=== PATIENT | male | born 1950 | race Caucasian/White ===

== ENCOUNTER 2019-09-24 08:04 | Outpatient (CLI) | payer MEDICARE, SELFPAY ==
--- NOTE | 2019-10-01 13:51 | SLEEP_ITS ---
Basic Nocturnal Polysomnogram. DATE OF STUDY: 09/24/2019 ORDERING PROVIDER: Vinny Matos, Nurse practitioner. REASON FOR THIS STUDY: Obstructive sleep apnea syndrome. HISTORY: This patient is a 69-year-old male, 69 inches tall, weighing 220 pounds with a body mass index of 32.5. He has a prior history of obstructive sleep apnea syndrome from 2013 with poor sleep efficiency, short REM latency, and his sleep was disrupted by respiratory events, snoring, and myoclonus. His apnea-hypopnea index was 7.9. His current sleep complaints include not being able to sleep restfully at night. He wakes up twice at night to move around, then cannot fall back asleep. His witnesses him having apneas. He uses medication to relax at night, but this does not seem to help maintain his sleep. He has had difficulties tolerating a full face mask previously. He frequently snores loud enough that others complain about it. He rarely has trouble sleeping with a cold. He denies gasping for breath at night, rarely sweats excessively at night and denies his heart pounding or beating irregularly at night. He occasionally falls asleep during the day, never involuntarily, and never while driving. He does not have loss of muscle tone with strong emotion. He rarely has daytime difficulties due to excessive sleepiness. He does not feel paralyzed on waking or falling asleep. He does not have vivid dreamlike scenes upon awakening or falling asleep. He does not feel afraid to go to sleep and denies having nightmares. He rarely remembers his dreams. He denies racing thoughts. He does not feel sad or depressed. He rarely has anxiety. He rarely has muscular tension. He denies noticing parts of his body jerking, denies kicking at night and denies having crawly achy feelings in his legs. He rarely has leg pain at night. He denies morning jaw pain and does not grind his teeth. He is not bothered by pain during the day. He has not awaken with pain at night. He rarely wakes up feeling stiff in the morning or having sore achy muscles. He does not wake up with spine and neck pain. He has memory problems. Normal bedtime is 09:30 p.m., falling asleep quickly, waking 2 or more times at night to go to the bathroom. Sometimes, he is able to fall asleep quickly. He wakes up in the morning between 07:00 and 9:00 a.m. On the weekends, he will stay up until 10:00 p.m. and wakes up at 8:00 in the morning. He estimates somewhere between 5 and 6 hours of sleep at night. He does not take naps. A short nap is not refreshing. MEDICAL COMORBIDITIES: Coronary artery disease with a history of bypass surgery, abdominal aortic aneurysm, gallbladder obstruction, hyperlipidemia, anxiety and depression, cognitive impairment on dementia medication. MEDICATIONS: Divalproex 250 mg q.8 hours, Memantine 10 mg twice a day, Melatonin 15 mg at bedtime, Buspirone 3 times a day, Aspirin 81 mg a day, Sertraline 50 mg in the morning, Donepezil 10 mg at bedtime, Multi Vision vitamins 1 daily, Aatorvastatin 20 mg a day, Bupropion XL 300 mg in the morning; HABITS: Quit tobacco in 2011. He does drink coffee 1 or 2 cups per day. No alcohol. No recreational drugs. DESCRIPTION OF THE STUDY: On the [place] Sleepiness Scale, the score is 5. This was conducted as a full night basic nocturnal polysomnogram, ordered as a split night, but he did not meet criteria for this. This was performed using the [employer] multiple channel system including EOG, EEG, submental EMG, EKG, nasal and oral airflow using thermistors, nasal pressure sensors, chest and abdominal belts, body position data and video monitoring. The study was scored using CMS guidelines. Duration of the study was 437.3 minutes. Sleep time was 253.2 minutes. Sleep efficiency was low
== END 2019-09-24 08:05 | disposition home or self-care (01) ==
LOC: ANHCSM 08:04
PROVIDERS: Visit Provider Nurse Practitioner
DX: G47.33 Obstructive sleep apnea (adult) (pediatric) (principal); G47.61 Periodic limb movement disorder
CPT/HCPCS: 95810

== ENCOUNTER 2019-10-15 06:47 | Outpatient (CLI) | payer MEDICARE, SELFPAY ==
--- NOTE | 2019-11-07 15:58 | SLEEP_ITS ---
Split night sleep study. DATE OF STUDY: 10/15/2019 ORDERING PROVIDER: Vinny Matos, Nurse practitioner. REASON FOR THE STUDY: Obstructive sleep apnea syndrome. HISTORY: This patient is a 69-year-old male, 69 inches tall, weighing 220 pounds with a body mass index of 32.5. He had a home sleep test on 07/24/2020 for complaints of disrupted sleep. He has a prior history of obstructive sleep apnea syndrome from 2013 with poor sleep efficiency, a short REM latency, snoring, and myoclonus. His AHI at that time was 7.9. On the recent home sleep test, he had a low sleep efficiency with delayed sleep onset and abnormal sleep architecture. He had positional obstructive sleep apnea syndrome with a supine REM index of 38.2 with desaturation to 79% and a mean O2 saturation of 91%. His overall apnea-hypopnea index was lower at 3.8. He also had severe periodic limb movement disorder. He returns at this time for a split night study to further evaluate his sleep-disordered breathing complaints. MEDICAL COMORBIDITIES: Coronary artery disease with a history of bypass surgery, abdominal aortic aneurysm, hyperlipidemia, anxiety, depression, cognitive impairment, obstructive sleep apnea syndrome, and severe periodic limb movement disorder. MEDICATIONS: 1. Divalproex. 2. Memantine. 3. Melatonin. 4. Buspirone. 5. Aspirin. 6. Sertraline. 7. Donepezil. 8. Multivitamin. 9. Atorvastatin. 10. Bupropion. HABITS: Quit tobacco in 2011. 1 to 2 cups of coffee per day. No alcohol. DESCRIPTION OF THE STUDY: On the [place] Sleepiness Scale, his score was 5. This was conducted as a split night study using the [employer] multiple channel system including EOG, EEG, submental EMG, EKG, nasal and oral airflow using thermistors and nasal pressure sensors, chest and abdominal belts, body position data, and pulse oximetry. The study was scored using CMS guidelines. The duration of the diagnostic portion was 168.3 minutes. The sleep time was 140 minutes. The sleep efficiency was 83.2%. Sleep latency was 19.6 minutes. REM latency was short at 71.5 minutes. There were 6 awakenings. The patient spent 8.7 minutes awake after sleep onset. Sleep architecture showed 5.7% stage 1 sleep, 72.5% stage 2 sleep, no stage 3 sleep, and 21.8% stage REM. The entire study was spent supine during the baseline portion. He had a REM episode. Sleep was a bit fragmented with shifts between wake stage I and stage II. The apnea-hypopnea index was 14.1, all obstructive events. He had 24 obstructive hypopneas in supine REM, 10 obstructive hypopneas in supine non-REM. The supine index was 47.2. Non-supine index was 5.5. Lowest desaturation was 76%. The mean saturation was 89.6%. He had 33 desaturations of 4% or greater for an index of 11.8. He spent 30.4 minutes below 88%, which was 16.6% of this portion. AROUSALS: 37 arousals for an index of 13.2. He had 9 hypopneas for an index of 3.2, 9 spontaneous for an index of 3.2, 19 limb movements for an index of 6.8. LIMB MOVEMENTS: 978 limb movements for an index of 419.1, extremely high. None of these were periodic. EKG: Sinus bradycardia, mean heart rate 44. The patient met criteria and proceeded to titration. TREATMENT: During the treatment portion, recording time was 300.8 minutes. Sleep time 248.9 minutes. Sleep efficiency 82.7%. Sleep latency short, 1.9 minutes. REM latency 68.5 minutes. There were 21 awakenings. The patient spent 50 minutes awake after sleep onset. Sleep architecture showed 9.6% stage 1 sleep, 68.5% stage 2 sleep, no stage 3 sleep, 21.9% stage REM. The patient spent 75.2% of this portion supine. There were 2 REM episodes. Sleep was somewhat fragmented with shifts even during REM between wake sta
== END 2019-10-15 06:48 | disposition home or self-care (01) ==
LOC: ANHCSM 06:48
PROVIDERS: Visit Provider Nurse Practitioner
DX: G47.33 Obstructive sleep apnea (adult) (pediatric) (principal)
CPT/HCPCS: 95811

== ENCOUNTER 2020-06-19 07:40 | Outpatient (CLI) | payer MEDICARE, SELFPAY ==
[2020-06-19 22:26] LABS: SARS-CoV-2 RNA PCR Negative
== END 2020-06-19 07:41 | disposition home or self-care (01) ==
LOC: ANHCOVIDDT 07:42
PROVIDERS: Visit Provider Internal Medicine Gastroenterology
DX: Z01.812 Encounter for preprocedural laboratory examination (principal); Z20.828 Contact with and (suspected) exposure to other viral communicable diseases
CPT/HCPCS: 87635; C9803; U0003

== ENCOUNTER 2020-06-22 02:25 | Day surgery (SDC) | payer MEDICARE, SELFPAY ==
[2020-06-16 13:40] VITALS: BMI 33.1
--- NOTE | 2020-06-22 07:01 | WPDANESEPPF ---
Anes - Initial Pre Proc Eval Procedure: Operation Date: 06/22/20 10:30 Proposed Procedures p Screening Colonoscopy - Sheldon Negrete MD Date/Time: 06/22/20 07:01 Surgeon: Sheldon Negrete MD Pre Op Diagnosis: Neoplasm Screening Patient Data Age: 70 Gender: M Height: 1.68 m Weight: 93.1 kg Allergies Allergy/AdvReac Type Severity Reaction Status Date / Time No Known Allergies Allergy Unverified 06/22/20 09:24 Home Medications Medication Instructions Recorded Confirmed Type aspirin 81 mg tablet,delayed 81 mg PO DAILY 08/27/19 06/16/20 History release bupropion HCl 300 mg 24 hr tablet, 300 mg PO QAM 08/27/19 06/16/20 History extended release buspirone 30 mg tablet 15 mg PO TID tablet 09/02/19 06/16/20 History donepezil 10 mg tablet 10 mg PO DAILY tablet 09/02/19 06/16/20 History melatonin 10 mg tablet PO DAILY tablet 09/02/19 09/02/19 History memantine 10 mg tablet 10 mg PO BID 09/02/19 06/16/20 History sertraline 50 mg tablet 50 mg PO DAILY 09/02/19 06/16/20 History peg 3350-electrolytes 236 240 ml PO Q10M #4000 ml 05/17/20 Rx gram-22.74 gram-6.74 gram-5.86 gram solution atorvastatin [Lipitor] See Rx Instructions .ROUTE .COMPLEX 06/16/20 06/16/20 History divalproex [Depakote] 250 mg PO Q8H 06/16/20 06/16/20 History vitamin A-vitamin C-vit E-min 1 tablet PO DAILY 06/16/20 06/16/20 History [Ocuvite] Patient hx anesthesia problems: none Family hx anesthesia problems: none PMFSH Past Medical History Medical History (Updated 06/22/20 @ 07:03 by Facundo Trujillo MD) Abdominal aortic aneurysm Alzheimer disease Anxiety and depression COPD (chronic obstructive pulmonary disease) Coronary artery disease (CAD) excluded Gallbladder obstruction Lesion of pancreas Mixed hyperlipidemia Obesity EMELI (obstructive sleep apnea) Surgical History Surgical History (Updated 06/22/20 @ 07:03 by Facundo Trujillo MD) S/P AAA (abdominal aortic aneurysm) repair S/P CABG (coronary artery bypass graft) Social History Social History (System 12/25/19 @ 09:04 by Germaine Webber) Smoking packs per day: 1 Smoking cigarettes per day: 20.0 Years smoked: 50 Smoking pack-years: 50.00 Smoking status: Former smoker Tobacco type: cigarettes Alcohol intake: current Substance use type: does not use Living arrangements: with family Gender identity (if verbalized by the patient): Male Spiritual care concerns: No Anes - Eval Final PreProcedure Day of Procedure 06/22/20 07:01 Patient weight: obese Heart: regular rate and rhythm Lungs: clear to auscultation and normal air movement Airway: Mallampati scale class II Neurological: alert and oriented Last oral intake: >/= 8 hours ASA classification: IV Emergent: no Anesthetic plan: proceed Anesthesia type and monitoring: general GIVS Informed Consent: The patient's anesthetic plan and its attendant risks and benefits were discussed with the patient/family/POA. Questions were solicited and answers provided to the satisfaction of the patient/family/POA.
[2020-06-22 09:25] VITALS: BP 115/84; PULSE 73; RESP 22; TEMP 36.6; O2SAT 96; BMI 30.9
[2020-06-22] MEDS: LACTATED RINGERS 1,000 ML 150 ML IV CONT (09:35)
--- NOTE | 2020-06-22 10:48 | PM.HPGS ---
History of Present Illness History of Present Illness Consent: Risks, benefits, and alternatives have been discussed and questions answered. Patient agrees to proceed with procedure. Chief complaint: Neoplasm Screening Narrative: David Maritnez Sr. is a 70 year old male with frequent loose stool after eating, also gas. Worse after he had cholecystectomy last year. Never had a colonoscopy Review of Systems Constitutional: Constitutional: Denies headache(s) and Denies weakness Eyes: Eyes: Denies blurry vision ENT: Reports Normal hearing present, Denies headache(s) and Denies neck pain Cardiovascular: Cardiovascular: Denies chest pain and Denies dyspnea Respiratory: Respiratory: Denies dyspnea Gastrointestinal: Gastrointestinal: Reports no additional gastrointestinal complaints Genitourinary: Genitourinary: Denies dysuria Musculoskeletal: Musculoskeletal: Denies neck pain Integumentary/Breasts: Skin/Breast: Denies dry skin Neurologic: Reports Normal hearing present, Denies headache(s) and Denies weakness Psychiatric: Psychiatric: Denies anxiety Endocrine: Endocrine: Denies change in body appearance Hematologic/Lymphatic: Hematologic/Lymphatic: Denies easy bleeding Allergic/Immunologic: Allergic/Immunologic: Denies urticaria PMFSH Past Medical History Medical History (Updated 06/22/20 @ 10:49 by Sheldon Negrete MD) Abdominal aortic aneurysm Alzheimer disease Anxiety and depression COPD (chronic obstructive pulmonary disease) Coronary artery disease (CAD) excluded Gallbladder obstruction Lesion of pancreas Mixed hyperlipidemia Obesity EMELI (obstructive sleep apnea) Postprandial diarrhea Surgical History Surgical History (Updated 06/22/20 @ 10:49 by Sheldon Negrete MD) Hx of cholecystectomy S/P AAA (abdominal aortic aneurysm) repair S/P CABG (coronary artery bypass graft) Social History Social History (System 12/25/19 @ 09:04 by Germaine Webber) Smoking packs per day: 1 Smoking cigarettes per day: 20.0 Years smoked: 50 Smoking pack-years: 50.00 Smoking status: Former smoker Tobacco type: cigarettes Alcohol intake: current Substance use type: does not use Living arrangements: with family Gender identity (if verbalized by the patient): Male Spiritual care concerns: No Meds Home Medications and Allergies Home Medications Medication Instructions Recorded Confirmed Type aspirin 81 mg tablet,delayed 81 mg PO DAILY 08/27/19 06/16/20 History release bupropion HCl 300 mg 24 hr tablet, 300 mg PO QAM 08/27/19 06/16/20 History extended release buspirone 30 mg tablet 15 mg PO TID tablet 09/02/19 06/16/20 History donepezil 10 mg tablet 10 mg PO DAILY tablet 09/02/19 06/16/20 History melatonin 10 mg tablet PO DAILY tablet 09/02/19 09/02/19 History memantine 10 mg tablet 10 mg PO BID 09/02/19 06/16/20 History sertraline 50 mg tablet 50 mg PO DAILY 09/02/19 06/16/20 History peg 3350-electrolytes 236 240 ml PO Q10M #4000 ml 05/17/20 Rx gram-22.74 gram-6.74 gram-5.86 gram solution atorvastatin [Lipitor] See Rx Instructions .ROUTE .COMPLEX 06/16/20 06/16/20 History divalproex [Depakote] 250 mg PO Q8H 06/16/20 06/16/20 History vitamin A-vitamin C-vit E-min 1 tablet PO DAILY 06/16/20 06/16/20 History [Ocuvite] Allergies Allergy/AdvReac Type Severity Reaction Status Date / Time No Known Allergies Allergy Unverified 06/22/20 09:24 Vital Signs Vital Signs - 24 hr 06/22/20 09:25 Temperature 97.8 F Pulse Rate 73 Respiratory Rate 22 H Blood Pressure 115/84 Pulse Oximetry 96 Exam Const: General: comfortable and no acute distress HENMT: General nose exam: Normal nares present Eyes: General: appearance normal, both eyes and all related structures Neck: Neck: no JVD Resp: Auscultation: clear to auscultation bilaterally Cardio: Rate: regular rate Rhythm: regular rhythm GI: Inspection: non-distended GI Palp: Ye
[2020-06-22 11:09] VITALS: BP 101/63; PULSE 56; RESP 28; O2SAT 96
[2020-06-22 11:19] VITALS: BP 102/62; PULSE 60; RESP 26; O2SAT 96
[2020-06-22 11:29] VITALS: BP 118/69; PULSE 48; RESP 26; O2SAT 96
== END 2020-06-22 11:58 | disposition home or self-care (01) ==
PROVIDERS: PCP Internal Medicine; Visit Provider Internal Medicine Gastroenterology
PROC: 0DJD8ZZ Inspection of Lower Intestinal Tract, Via Natural or Artificial Opening Endoscopic (ICD-10-PCS; CPT 45378; principal; 2020-06-22 10:30)
DX: Z12.11 Encounter for screening for malignant neoplasm of colon (principal); K63.5 Polyp of colon; R19.7 Diarrhea, unspecified; K64.8 Other hemorrhoids; I71.4 Abdominal aortic aneurysm, without rupture; J44.9 Chronic obstructive pulmonary disease, unspecified; E78.5 Hyperlipidemia, unspecified; E66.9 Obesity, unspecified; G47.33 Obstructive sleep apnea (adult) (pediatric); G30.9 Alzheimer's disease, unspecified; F02.80 Dementia in other diseases classified elsewhere, unspecified severity, without behavioral disturbance, psychotic disturbance, mood disturbance, and anxiety; F41.9 Anxiety disorder, unspecified; F32.9 Major depressive disorder, single episode, unspecified; Z90.49 Acquired absence of other specified parts of digestive tract; Z87.891 Personal history of nicotine dependence
CPT/HCPCS: 45385; 88305; J2704; J7120

== ENCOUNTER 2020-08-31 10:17 | Outpatient (CLI) | payer MEDICARE, SELFPAY ==
[2020-08-31 11:43] LABS: Alanine Aminotransferase 21 U/L (16-63); Albumin Level 3.5 g/dL (3.4-5.0); Alkaline Phosphatase 53 U/L (46-116); Anion Gap 3 mmol/L (8-16); Aspartate Amino Transferase 19 U/L (15-37); Bilirubin,Total 0.6 mg/dL (0.00-1.00); Blood Urea Nitrogen 24 mg/dL (7-18); Calcium 8.6 mg/dL (8.5-10.1); Carbon Dioxide 35 mmol/L (21-32); Chloride 108 mmol/L (98-108); Cholesterol 154 mg/dL (0-200); Estimated Glomerular Filt Rate > 60; Glucose 86 mg/dL (70-99); HDL Direct 63 mg/dL (40-60); LDL Cholesterol Calculated 79 mg/dL (<130); Osmolality Calculated 305 mOsm/kg (285-295); Potassium 4.4 mmol/L (3.5-5.1); Sodium 146 mmol/L (136-145); Triglycerides 61 mg/dL (0-150)
== END 2020-08-31 10:18 | disposition home or self-care (01) ==
LOC: CHSLAB 10:19
PROVIDERS: PCP Nurse Practitioner; Visit Provider Nurse Practitioner
DX: E78.5 Hyperlipidemia, unspecified (principal)
CPT/HCPCS: 36415; 80053; 80061

== ENCOUNTER 2020-09-01 09:53 | Outpatient (CLI) | payer MEDICARE, SELFPAY ==
--- NOTE | ~2020-09-01 | CT_ITS ---
EXAMINATION: CT abdomen wo/w con DATE: 09/01/2020 10:48 INDICATION: Lesion of pancreas. TECHNIQUE: Computed tomography (CT) of the abdomen was performed without and with 100 mL Omnipaque 35 0 intravenous contrast. Automated exposure control and iterative reconstruction technique were employ ed. The dose-length product was 1633.26 mGy-cm. COMPARISON: Abdomen MRI 03/01/2019, 10/28/2018, CT abdomen and pelvis 10/27/2018 FINDINGS: The visualized portions of the lung bases demonstrate mild atelectasis. No pleural effusion . The heart size is normal. There are coronary artery calcifications. No pericardial effusion. There is a small sliding hiatal hernia. Calcifications in the liver and spleen are consistent with old gran ulomatous disease. There is a 7 mm hyperenhancing mass in left hepatic lobe, likely a hemangioma or f ocal nodular hyperplasia. Pneumobilia is noted, likely from sphincterotomy. There are changes of chol ecystectomy. The pancreatic duct is dilated to 7 mm in the body segment. There is a 2.9 x 0.9 cm cyst ic lesion of the body of the pancreas that is contiguous with the pancreatic duct. No mural nodule. T he adrenal glands are normal. There are cysts in the kidneys measuring up to 6 mm on the right. There is a 5 mm stone in right kidney. There are no dilated loops of bowel. There are multiple supraumbili maximo ventral hernias containing fat. There is mild thoracolumbar spondylosis. IMPRESSION: 1. 2.9 cm cystic lesion of the body of the pancreas with main duct communication and main duct dilata tion to 7 mm, stable from 03/01/2019. 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 Abdomen MRI without and with contrast is recommended in one year. Reviewed, dictated and finalized at location B. [facility] IMPRESSION: 1. 2.9 cm cystic lesion of the body of the pancreas with main duct communicatio n and main duct dilatation to 7 mm, stable from 03/01/2019. 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 Abdomen MRI without and with contrast is recommended in one year.
== END 2020-09-01 09:54 | disposition home or self-care (01) ==
PROVIDERS: PCP Internal Medicine; Visit Provider Nurse Practitioner Family
DX: K86.9 Disease of pancreas, unspecified (principal)
CPT/HCPCS: 74170; Q9967

== ENCOUNTER 2020-11-18 10:28 | Outpatient (CLI) | payer MEDICARE, SELFPAY ==
[2020-11-18 10:43] LABS: Basophils Absolute Auto 0.03 K/mm3 (0.00-0.10); Basophils Percent Auto 0.5 % (0.0-1.0); Eosinophils Absolute Auto 0.07 K/mm3 (0.02-0.50); Eosinophils Percent Auto 1.1 % (1.0-6.0); Hematocrit 44.8 % (37.0-46.0); Hemoglobin 14.6 g/dL (12.4-15.3); Immature Granulocyte Absolute 0.03 K/mm3 (0.00-0.00); Immature Granulocyte Percent A 0.5 % (0.0-0.0); Lymphocytes Absolute Auto 1.77 K/mm3 (1.10-4.50); Lymphocytes Percent Auto 27.4 % (18.0-42.0); Mean Corpuscular HGB Conc 32.6 g/dL (32.0-36.0); Mean Corpuscular Volume 104.4 fL (78.0-102.0); Mean Platelet Volume 10.7 fl (8.7-11.0); Monocytes Percent Auto 10.8 % (2.0-11.0); Neutrophils Absolute Auto 3.9 K/mm3 (1.7-7.2); Neutrophils Percent Auto 59.7 % (50.0-70.0); Platelet Count Result 123 K/mm3 (150-420); Red Blood Count 4.29 M/mm3 (4.70-6.10); Red Cell Distribution Width 12.3 % (11.6-14.4); White Blood Count 6.5 K/mm3 (4.8-10.8)
[2020-11-18 11:26] LABS: Hemoglobin A1C 5.2 % (<5.7)
[2020-11-18 11:51] LABS: Alanine Aminotransferase 27 U/L (16-63); Albumin Level 3.2 g/dL (3.4-5.0); Alkaline Phosphatase 56 U/L (46-116); Anion Gap 4 mmol/L (8-16); Aspartate Amino Transferase 20 U/L (15-37); Bilirubin,Total 0.7 mg/dL (0.00-1.00); Blood Urea Nitrogen 27 mg/dL (7-18); Calcium 8.8 mg/dL (8.5-10.1); Carbon Dioxide 32 mmol/L (21-32); Chloride 108 mmol/L (98-108); Cholesterol 136 mg/dL (0-200); Estimated Glomerular Filt Rate > 60; Folic Acid 15.7 ng/mL (8.6->20); Free T4 Free Thyroxine 0.87 ng/dL (0.76-1.46); Glucose 116 mg/dL (70-99); HDL Direct 55 mg/dL (40-60); LDL Cholesterol Calculated 65 mg/dL (<130); Osmolality Calculated 304 mOsm/kg (285-295); Potassium 4.4 mmol/L (3.5-5.1); Sodium 144 mmol/L (136-145); Thyroid Stimulating Hormone 1.18 uIU/mL (0.36-3.74); Total Protein 5.7 g/dL (6.4-8.2); Triglycerides 79 mg/dL (0-150)
[2020-11-20 20:42] LABS: Valproic Acid 32.9 mg/L (50.0-100.0)
[2020-11-21 11:30] LABS: Vitamin D 25 Hydroxy 24 ng/mL (30-100)
== END 2020-11-18 10:29 | disposition home or self-care (01) ==
LOC: CHSLAB 10:33
PROVIDERS: PCP Internal Medicine
DX: Z79.899 Other long term (current) drug therapy (principal); F33.0 Major depressive disorder, recurrent, mild; G30.9 Alzheimer's disease, unspecified; F41.1 Generalized anxiety disorder; E78.5 Hyperlipidemia, unspecified
CPT/HCPCS: 36415; 80053; 80061; 80164; 82306; 82746; 83036; 84439; 84443; 85025

== ENCOUNTER 2021-02-17 09:47 | Outpatient (CLI) | payer MEDICARE, SELFPAY ==
[2021-02-17 10:00] LABS: Basophils Absolute Auto 0.03 K/mm3 (0.00-0.10); Basophils Percent Auto 0.5 % (0.0-1.0); Eosinophils Absolute Auto 0.08 K/mm3 (0.02-0.50); Eosinophils Percent Auto 1.3 % (1.0-6.0); Immature Granulocyte Absolute 0.03 K/mm3 (0.00-0.00); Immature Granulocyte Percent A 0.5 % (0.0-0.0); Lymphocytes Absolute Auto 1.72 K/mm3 (1.10-4.50); Lymphocytes Percent Auto 27.7 % (18.0-42.0); Mean Corpuscular HGB Conc 32.6 g/dL (32.0-36.0); Mean Corpuscular Hemoglobin 33.9 pg (27.0-31.0); Mean Corpuscular Volume 104.1 fL (78.0-102.0); Mean Platelet Volume 10.5 fl (8.7-11.0); Monocytes Percent Auto 9.7 % (2.0-11.0); Neutrophils Absolute Auto 3.8 K/mm3 (1.7-7.2); Neutrophils Percent Auto 60.3 % (50.0-70.0); Platelet Count Result 159 K/mm3 (150-420); Red Blood Count 4.42 M/mm3 (4.70-6.10); Red Cell Distribution Width 12.5 % (11.6-14.4); White Blood Count 6.2 K/mm3 (4.8-10.8)
[2021-02-17 10:08] LABS: Hemoglobin A1C 5.3 % (<5.7)
[2021-02-17 11:44] LABS: Alanine Aminotransferase 25 U/L (16-63); Albumin Level 3.2 g/dL (3.4-5.0); Alkaline Phosphatase 52 U/L (46-116); Anion Gap 8 mmol/L (8-16); Aspartate Amino Transferase 20 U/L (15-37); Bilirubin,Total 0.9 mg/dL (0.00-1.00); Blood Urea Nitrogen 18 mg/dL (7-18); Calcium 8.4 mg/dL (8.5-10.1); Carbon Dioxide 34 mmol/L (21-32); Chloride 110 mmol/L (98-108); Cholesterol 122 mg/dL (0-200); Estimated Glomerular Filt Rate > 60; Glucose 86 mg/dL (70-99); HDL Direct 57 mg/dL (40-60); LDL Cholesterol Calculated 54 mg/dL (<130); Osmolality Calculated 314 mOsm/kg (285-295); Potassium 4.4 mmol/L (3.5-5.1); Sodium 152 mmol/L (136-145); Total Protein 5.6 g/dL (6.4-8.2); Triglycerides 56 mg/dL (0-150)
[2021-02-22 05:12] LABS: Valproic Acid 46.6 mg/L (50.0-100.0)
[2021-02-22 20:02] LABS: Vitamin D 25 Hydroxy 29 ng/mL (30-100)
== END 2021-02-17 09:48 | disposition home or self-care (01) ==
PROVIDERS: PCP Internal Medicine; Visit Provider Nurse Practitioner Psychiatric/Mental Health
DX: Z79.899 Other long term (current) drug therapy (principal); F33.0 Major depressive disorder, recurrent, mild; F41.1 Generalized anxiety disorder; G30.9 Alzheimer's disease, unspecified; E78.5 Hyperlipidemia, unspecified; F51.01 Primary insomnia
CPT/HCPCS: 36415; 80053; 80061; 80164; 82306; 82746; 83036; 84439; 84443; 85025

== ENCOUNTER 2021-05-11 08:22 | Outpatient (CLI) | payer MEDICARE, SELFPAY ==
[2021-05-11 09:23] LABS: Alanine Aminotransferase 29 U/L (16-63); Albumin Level 3.5 g/dL (3.4-5.0); Alkaline Phosphatase 60 U/L (46-116); Anion Gap 4 mmol/L (8-16); Aspartate Amino Transferase 27 U/L (15-37); Blood Urea Nitrogen 19 mg/dL (7-18); Calcium 8.9 mg/dL (8.5-10.1); Carbon Dioxide 34 mmol/L (21-32); Chloride 109 mmol/L (98-108); Cholesterol 136 mg/dL (0-200); Estimated Glomerular Filt Rate > 60; Glucose 95 mg/dL (70-99); HDL Direct 63 mg/dL (40-60); LDL Cholesterol Calculated 62 mg/dL (<130); Osmolality Calculated 306 mOsm/kg (285-295); Potassium 5.2 mmol/L (3.5-5.1); Sodium 147 mmol/L (136-145); Thyroid Stimulating Hormone 1.91 uIU/mL (0.36-3.74); Total Protein 6.1 g/dL (6.4-8.2); Triglycerides 54 mg/dL (0-150)
[2021-05-15 16:41] LABS: Valproic Acid 20.9 mg/L (50.0-100.0)
== END 2021-05-11 08:23 | disposition home or self-care (01) ==
LOC: CHSLAB 08:26
PROVIDERS: PCP Internal Medicine; Visit Provider Internal Medicine
DX: E78.2 Mixed hyperlipidemia (principal); F41.9 Anxiety disorder, unspecified; F32.9 Major depressive disorder, single episode, unspecified; Z51.81 Encounter for therapeutic drug level monitoring
CPT/HCPCS: 36415; 80053; 80061; 80164; 84443

== ENCOUNTER 2021-11-21 09:18 | Outpatient (CLI) | payer MEDICARE, SELFPAY ==
[2021-11-21 10:53] LABS: Alanine Aminotransferase 18 U/L (16-63); Albumin Level 3.3 g/dL (3.4-5.0); Alkaline Phosphatase 58 U/L (46-116); Anion Gap 6 mmol/L (8-16); Aspartate Amino Transferase 20 U/L (15-37); Bilirubin,Total 0.8 mg/dL (0.00-1.00); Blood Urea Nitrogen 24 mg/dL (7-18); Carbon Dioxide 34 mmol/L (21-32); Chloride 107 mmol/L (98-108); Cholesterol 139 mg/dL (0-200); Estimated Glomerular Filt Rate > 60; Glucose 93 mg/dL (70-99); HDL Direct 62 mg/dL (40-60); LDL Cholesterol Calculated 65 mg/dL (<130); Osmolality Calculated 308 mOsm/kg (285-295); Potassium 5.1 mmol/L (3.5-5.1); Sodium 147 mmol/L (136-145); Total Protein 5.9 g/dL (6.4-8.2); Triglycerides 60 mg/dL (0-150); Vitamin B12 619 pg/mL (193-986)
[2021-11-24 08:14] LABS: Valproic Acid 64.3 mg/L (50.0-100.0)
[2021-11-24 15:35] LABS: Vitamin D 25 Hydroxy 20 ng/mL (30-100)
== END 2021-11-21 09:19 | disposition home or self-care (01) ==
LOC: CHSLAB 09:22
PROVIDERS: PCP Internal Medicine; Visit Provider Internal Medicine
DX: Z79.899 Other long term (current) drug therapy (principal); Z03.89 Encounter for observation for other suspected diseases and conditions ruled out; E78.5 Hyperlipidemia, unspecified; D75.89 Other specified diseases of blood and blood-forming organs; E55.9 Vitamin D deficiency, unspecified
CPT/HCPCS: 36415; 80053; 80061; 80164; 82306; 82607

== ENCOUNTER 2022-01-12 12:47 | Outpatient (CLI) | payer MEDICARE, SELFPAY ==
--- NOTE | 2022-01-14 14:07 | WPDNEUROLOGY ---
Neurology EEG Report General Information Date of Study: 01/12/22 TEST eeg DIAGNOSIS Alzheimer's disease CONDITION OF RECORDING awake and drowsy EEG NUMBER [id number] CLINICAL HISTORY patient reports he has been having trouble remembering things in particularly names EEG DESCRIPTION basic resting occipital frequency consists of low to medium voltage 8 to 9 hertz per 2nd alpha admixed with low-voltage 15 to 18 hertz per 2nd beta. During drowsiness low-voltage beta activity seen diffusely admixed with waxing and waning posterior alpha rhythm. Bilateral symmetrical sleep activity seen during sleep in addition to multiple movements artifacts. Photic stimulation produced normal drive. Hyperventilation not done. Non paroxysmal nonfocal nonlateralizing. IMPRESSION Normal record
== END 2022-01-12 12:48 | disposition home or self-care (01) ==
LOC: ANHNEURO 12:47
PROVIDERS: PCP Internal Medicine; Visit Provider Psychiatry & Neurology Neurology
DX: G30.9 Alzheimer's disease, unspecified (principal)
CPT/HCPCS: 95816

== ENCOUNTER 2022-01-18 10:31 | Outpatient (CLI) | payer MEDICARE, SELFPAY ==
--- NOTE | ~2022-01-18 | MR_ITS ---
EXAMINATION: MR brain/brain stem wo/w con DATE: 01/18/2022 11:49 INDICATION: Epilepsy, unspecified, not intractable, without status epilepticus. TECHNIQUE: Magnetic resonance imaging (MRI) of the brain and brainstem was performed without and with 18 mL MultiHance intravenous contrast. COMPARISON: Head CT 04/24/2019 FINDINGS: There are scattered areas of nonspecific increased T2-weighted signal intensity in the cere bral white matter. There is no intracranial hemorrhage, acute infarction, or abnormal intracranial ma ss lesion. The ventricles are normal in size. There is mild mucosal thickening in the paranasal sinus es. There are likely changes of ocular lens replacement surgeries. The mastoid air cells are normal. IMPRESSION: 1. Mild nonspecific cerebral white matter disease, which likely represents chronic small vessel ische alison disease. Reviewed, dictated and finalized at location A. IMPRESSION: 1. Mild nonspecific cerebral white matter disease, which likely represents residential concierge alban small vessel ischemic disease.
[2022-01-18 11:22] LABS: Estimated Glomerular Filt Rate 59
== END 2022-01-18 10:32 | disposition home or self-care (01) ==
PROVIDERS: PCP Internal Medicine; Visit Provider Psychiatry & Neurology Neurology
DX: G40.909 Epilepsy, unspecified, not intractable, without status epilepticus (principal); R90.82 White matter disease, unspecified
CPT/HCPCS: 70553; A9577

== ENCOUNTER 2022-02-17 11:59 | Outpatient (CLI) | payer MEDICARE, SELFPAY ==
[2022-02-17 12:38] LABS: Anion Gap 5 mmol/L (8-16); Blood Urea Nitrogen 27 mg/dL (7-18); Calcium 8.9 mg/dL (8.5-10.1); Carbon Dioxide 33 mmol/L (21-32); Chloride 106 mmol/L (98-108); Estimated Glomerular Filt Rate 57; Glucose 91 mg/dL (70-99); NT Pro B Type Natriuretic Pept 3151 pg/mL (0-125); Osmolality Calculated 303 mOsm/kg (285-295); Potassium 4.5 mmol/L (3.5-5.1); Sodium 144 mmol/L (136-145)
== END 2022-02-17 12:00 | disposition home or self-care (01) ==
DX: I25.10 Atherosclerotic heart disease of native coronary artery without angina pectoris (principal); R06.00 Dyspnea, unspecified; E78.2 Mixed hyperlipidemia
CPT/HCPCS: 36415; 80048; 83880

== ENCOUNTER 2022-05-02 14:36 | Emergency (ER) | payer MEDICARE, SELFPAY ==
[2022-05-02] VITALS (16 sets, daily range): BP systolic 129–138; BP diastolic 60–98; PULSE 52–73; RESP 13–32; TEMP 37.5; O2SAT 96–100
--- NOTE | ~2022-05-02 | XR_ITS ---
EXAMINATION: XR chest 2V Exam Date/Time: 05/02/2022 15:20 CDT HISTORY: AMS, states back pain, abd pain and leg pain Comparison: 09/11/2012. RESULT: Lines, tubes, and devices: Intact sternotomy wires. Mediastinal surgical clips. Lungs and pleura: Linear bibasilar scar, calcified granulomas, emphysematous change. Cardiomediastinal silhouette: Stable. Other: No acute osseous or upper abdominal finding. IMPRESSION: No acute cardiopulmonary process. Reviewed, dictated and finalized at location K.
--- NOTE | ~2022-05-02 | CT_ITS ---
EXAMINATION: CT abdomen pelvis wo con DATE: 05/02/2022 17:56 INDICATION: Flank pain TECHNIQUE: Computed tomography (CT) of the abdomen and pelvis was performed without intravenous contr ast. Automated exposure control and iterative reconstruction technique were employed. Exam dose: 604 .85 mGy-cm total exam DLP. COMPARISON: 09/01/2020 CT abdomen FINDINGS: There is mild discoid atelectasis or scarring at the lung bases. No basilar pulmonary conso lidation is noted. No pericardial or pleural effusion. Foramen of Morgagni defect containing fat, transverse colon and a portion of the left hepatic lobe. Small sliding hiatal hernia. There are numerous calcified hepatic and splenic granulomas consistent with old granulomatous disease . No hepatic space-occupying mass lesion is evident. Status post cholecystectomy, which likely accounts for better air in the nondilated common bile duct and intrahepatic bile ducts. Normal splenic size. 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 Normal morphology of the adrenal glands. Approximately 4 x 8 mm nonobstructing lower pole right renal calculus. A pinpoint nonobstructing left renal calculus is noted.. No ureteral calculus or hydroureteronephrosis. There is atherosclerotic calcification of the abdominal aorta, iliac and femoral arteries. No abdomin al aortic aneurysm. No intraperitoneal or retroperitoneal or pelvic mass lesion or adenopathy or asci fantasma. Bilateral fat-containing inguinal hernias, small, larger on the right. Prostate enlargement and calcifications. The prostate enlargement likely accounts for mild diffuse th ickeningof the urinary bladder wall. Cystitis is not excluded. Normal appendix. No bowel obstruction, bowel wall thickening, pneumatosis or intraperitoneal free air . Osteopenia. Degenerative changes of the thoracic and lumbar spine. Bilateral hip osteoarthritis. No s uspicious osteolytic or osteoblastic lesions are noted. IMPRESSION: Minimal bilateral nonobstructive nephrolithiasis; no ureteral calculus or hydroureterone phrosis Moderate thickening of the urinary bladder wall, possibly secondary to prostate hypertrophy; cystitis is not excluded Small fat-containing inguinal hernias, larger on the right Normal appendix Status post cholecystectomy which likely accounts for pneumobilia Relatively stable cystic mass of pancreas since 09/01/2020 Reviewed, dictated and finalized at [facility]. Reviewed, dictated and finalized at location B. IMPRESSION: Minimal bilateral nonobstructive nephrolithiasis; no ureteral calc ulus or hydroureteronephrosis Moderate thickening of the urinary bladder wall, possibly secondary to prostate hypertrophy; cystitis is not excluded Small fat-containing inguinal hernias, larger on the right Normal appendix Status post cholecystectomy which likely accounts for pneumobilia Relatively stable cystic mass of pancreas since 09/01/2020
--- NOTE | 2022-05-02 14:42 | ECG_ITS ---
Measurements Intervals [place] Rate: 58 P: 73 SC: 145 QRS: 65 QRSD: 99 T: 60 QT: 434 QTc: 428 Interpretive Statements SINUS BRADYCARDIA NONSPECIFIC ST & T-WAVE ABNORMALITY- DIFFUSE LEADS BASELINE ARTIFACT- I, II, III, AVR, AVL, AVF, V3-V4 BORDERLINE ECG NO PREVIOUS ECG AVAILABLE FOR COMPARISON Electronically Signed On 05-02-2022 15:10:29 CDT by Moreno Fields D.O.
--- NOTE | 2022-05-02 15:43 | ED.GENADULT ---
HPI - General Adult General Chief complaint: Altered Mental Status Stated complaint: increased confusion s/p mowing grass today Time Seen by Provider: 05/02/22 14:57 History of Present Illness HPI narrative: Patient is a 72-year-old male who presents ER with new confusion. It is reported that the patient was mowing his lawn when he became newly altered. Per me patient is oriented to self and place but not the situation or the date. He is on memantine and donepezil which would certainly indicate that he has dementia. Patient has no complaints of pain at this time. No visible injury. Chart review shows history of Alzheimer's. Related Data Home Medications Medication Instructions Recorded Confirmed aspirin 81 mg tablet,delayed 81 mg PO DAILY 08/27/19 11/23/21 release (Aspir-) buspirone 30 mg tablet 15 mg PO TID 09/02/19 11/23/21 donepezil 10 mg tablet (Aricept) 10 mg PO DAILY 09/02/19 11/23/21 melatonin 10 mg tablet PO DAILY 09/02/19 11/23/21 memantine 10 mg tablet (Namenda) 10 mg PO BID 09/02/19 11/23/21 divalproex 250 mg tablet,delayed 250 mg PO Q8H 06/16/20 11/23/21 release (Depakote) sertraline 50 mg tablet (Zoloft) 75 mg PO DAILY 08/18/20 11/23/21 aripiprazole 2 mg tablet 2 mg PO DAILY 02/02/21 11/23/21 trazodone 50 mg tablet 50 mg PO QHS PRN 05/18/21 11/23/21 ipratropium bromide 21 mcg (0.03 2 spray intranasal TID 11/23/21 11/23/21 %) nasal spray Allergies Allergy/AdvReac Type Severity Reaction Status Date / Time No Known Allergies Allergy Verified 02/08/22 13:18 Review of Systems Review of Systems: ROS unobtainable: Yes unobtainable due to mental status PMFSH Past Medical History Medical History Abdominal aortic aneurysm Alzheimer disease Anxiety and depression COPD (chronic obstructive pulmonary disease) Coronary artery disease (CAD) excluded Gallbladder obstruction Lesion of pancreas Mixed hyperlipidemia Obesity EMELI (obstructive sleep apnea) Postprandial diarrhea Surgical History Surgical History H/O cataract removal with insertion of prosthetic lens Hx of cholecystectomy S/P AAA (abdominal aortic aneurysm) repair S/P CABG (coronary artery bypass graft) Social History Social History Smoking packs per day: 1 Smoking cigarettes per day: 20.0 Years smoked: 50 Smoking pack-years: 50.00 Smoking status: Former smoker Tobacco type: cigarettes Second hand tobacco smoke exposure: Yes Smoking end date: 08/13/10 Alcohol intake: current Alcohol use details: social Substance use: never Substance use type: does not use Gender identity (if verbalized by the patient): Male Spiritual care concerns: No Exam Narrative: GENERAL: Well-appearing, well-nourished, and in no acute distress. HEAD: Normocephalic, atraumatic. EYES: PERRL and EOMI. ENT: Mucous membranes moist. CHEST: Clear to auscultation. No respiratory distress. HEART: Regular rate and rhythm. Normal peripheral pulses. ABDOMEN: Soft, nontender, nondistended. EXTREMITIES: Normal range of motion. No edema. SKIN: Warm, dry, no rash. NEURO: Alert and oriented x2. PSYCH: Normal mood and affect. Course Course Emergency Course: Patient's is here. 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 He is complaining of right back pain was having trouble walking due to it. Pain resolved now. Urine does show blood. We will evaluate for possible kidney stone. Vital Signs Vital signs: Vital Signs Temperature 99.5 F 05/02/22 14:40 Pulse Rate 61 05/02/22 14:40 Respiratory Rate 16 05/02/22 14:40 Blood Pressure 129/60 05/02/22 14:40 Pulse Oximetry 97 05/02/22 14:40 Oxygen Delivery Room Air 05/02/22 14:40 Temperature 99.5 F 05/02/22 14:40 Pulse Rate 52 L 09
[2022-05-02 15:54] LABS: Basophils Percent Auto 0.5 % (0.2-1.2); Eosinophils Percent Auto 0.3 % (0-4.4); Hematocrit 40.9 % (42.0-52.0); Hemoglobin 13.2 g/dL (14.0-18.0); Immature Granulocyte Absolute 0.01 K/mm3 (0.00-0.031); Immature Granulocyte Percent A 0.2 % (0-0.5); Immature Platelet Fraction Pct 2.8 % (0.9-11.2); Lymphocytes Absolute Auto 0.87 K/mm3 (0.9-3.2); Lymphocytes Percent Auto 14.3 % (18.3-44.2); Mean Corpuscular HGB Conc 32.3 g/dl (32-36); Mean Corpuscular Hemoglobin 34.5 pg (26-34); Mean Corpuscular Volume 106.8 fl (80-100); Mean Platelet Volume 10.2 fl (7.4-10.4); Monocytes Absolute Auto 1.1 K/mm3 (0.1-0.6); Monocytes Percent Auto 17.9 % (2.6-8.5); Neutrophils Absolute Auto 4.1 K/mm3 (1.3-6.7); Neutrophils Percent Auto 66.8 % (45.5-73.1); Platelet Count Result 112 k/mm3 (150-375); Red Blood Count 3.83 M/mm3 (4.6-6.20); Red Cell Distribution Width 13.7 % (11.5-14.5); White Blood Count 6.1 K/mm3 (4.5-10.0)
[2022-05-02 16:04] LABS: Alanine Aminotransferase 30 U/L (6-50); Albumin Level 3.5 g/dL (3.5-5.1); Alkaline Phosphatase 55 U/L (38-126); Anion Gap 10 mmol/L (8-16); Aspartate Amino Transferase 51 U/L (17-59); Bilirubin,Total 0.7 mg/dL (0.2-1.3); Blood Urea Nitrogen 22 mg/dL (9-20); Calcium 8.5 mg/dL (8.4-10.2); Carbon Dioxide 31 mmol/L (22-30); Chloride 102 mmol/L (98-107); Estimated Glomerular Filt Rate > 60; Glucose 90 mg/dL (65-110); INR 1.3; Prothrombin Time 15.3 Seconds (11.1-14.7); Sodium 143 mmol/L (137-145)
[2022-05-02 16:05] LABS: Partial Thromboplastin Time 29.4 SECONDS (22.3-36.8)
[2022-05-02 16:42] LABS: Appearance Urine Slightly Cloudy (Clear); Bilirubin Urine 1+ (Negative); Blood Urine Negative (Negative); Color Urine Yellow (Yellow); Glucose Urine UA Negative (Negative); Ketones Urine 2+ mg/dL (Negative); Leukocyte Esterase Ur Negative LEU/UL (Negative); Nitrate Urine Negative (Negative); Protein Urine 1+ mg/dL (Negative); Specific Grav Ur >= 1.030 (1.001-1.035)
[2022-05-02 17:13] LABS: Mucus Urine Rare /lpf; RBC Urine 21-50 /hpf (0-2); Squamous Epithelial Cell Urine Rare /hpf (Few); WBC Urine 0-3 /hpf
[2022-05-02 17:21] LABS: Add Urine Microscopic? YES
== END 2022-05-02 19:20 | disposition home or self-care (01) ==
PROVIDERS: Emergency Provider Emergency Medicine; PCP Internal Medicine
DX: G30.9 Alzheimer's disease, unspecified (principal); F02.80 Dementia in other diseases classified elsewhere, unspecified severity, without behavioral disturbance, psychotic disturbance, mood disturbance, and anxiety; J44.9 Chronic obstructive pulmonary disease, unspecified; I25.10 Atherosclerotic heart disease of native coronary artery without angina pectoris; E78.2 Mixed hyperlipidemia; G47.33 Obstructive sleep apnea (adult) (pediatric); F41.9 Anxiety disorder, unspecified; F32.A Depression, unspecified; Z95.1 Presence of aortocoronary bypass graft; Z98.49 Cataract extraction status, unspecified eye; Z96.1 Presence of intraocular lens; Z87.891 Personal history of nicotine dependence; R00.1 Bradycardia, unspecified; Z79.82 Long term (current) use of aspirin; R94.31 Abnormal electrocardiogram [ECG] [EKG]; N20.0 Calculus of kidney; K40.20 Bilateral inguinal hernia, without obstruction or gangrene, not specified as recurrent; R93.2 Abnormal findings on diagnostic imaging of liver and biliary tract; K86.89 Other specified diseases of pancreas
CPT/HCPCS: 36415; 71046; 74176; 80053; 81001; 85025; 85055; 85610; 85730; 93005; 99284

== ENCOUNTER 2022-05-25 09:22 | Outpatient (CLI) | payer MEDICARE, SELFPAY ==
[2022-05-25 10:14] LABS: Alanine Aminotransferase 11 U/L (16-63); Albumin Level 3.2 g/dL (3.4-5.0); Alkaline Phosphatase 59 U/L (46-116); Anion Gap 5 mmol/L (8-16); Aspartate Amino Transferase 21 U/L (15-37); Bilirubin,Total 0.9 mg/dL (0.00-1.00); Blood Urea Nitrogen 25 mg/dL (7-18); Calcium 8.4 mg/dL (8.5-10.1); Carbon Dioxide 34 mmol/L (21-32); Chloride 109 mmol/L (98-108); Cholesterol 126 mg/dL (0-200); Estimated Glomerular Filt Rate > 60; Glucose 86 mg/dL (70-99); HDL Direct 58 mg/dL (40-60); LDL Cholesterol Calculated 52 mg/dL (<130); Osmolality Calculated 309 mOsm/kg (285-295); Potassium 4.4 mmol/L (3.5-5.1); Prostate Specific Antigen 1.5 ng/mL (< OR = 4.0); Sodium 148 mmol/L (136-145); Total Protein 5.7 g/dL (6.4-8.2); Triglycerides 79 mg/dL (0-150)
[2022-05-28 13:54] LABS: Valproic Acid 55.8 mg/L (50.0-100.0)
[2022-05-28 15:10] LABS: Vitamin D 25 Hydroxy 48 ng/mL (30-100)
== END 2022-05-25 09:23 | disposition home or self-care (01) ==
LOC: CHSLAB 09:24
PROVIDERS: PCP Internal Medicine; Visit Provider Nurse Practitioner
DX: E78.2 Mixed hyperlipidemia (principal); Z12.5 Encounter for screening for malignant neoplasm of prostate; Z51.81 Encounter for therapeutic drug level monitoring; Z13.21 Encounter for screening for nutritional disorder; Z79.899 Other long term (current) drug therapy
CPT/HCPCS: 36415; 80053; 80061; 80164; 82306; 84153; G0103

== ENCOUNTER 2022-06-05 09:00 | Outpatient (CLI) | payer MEDICARE, SELFPAY ==
--- NOTE | ~2022-06-05 | XR_ITS ---
EXAMINATION: XR lumbar spine 2-3V DATE: 06/05/2022 09:28 INDICATION: Other symptoms and signs involving the musculoskeletal system. TECHNIQUE: 3 views of lumbar spine were obtained. COMPARISON: Lumbar spine radiograph 02/17/2015, CT abdomen and pelvis 05/02/2022 FINDINGS: There is 4 degrees dextrocurvature of lumbar spine. Vertebral body heights are normal. Ther e is mildly decreased disc height at L4-L5. There are endplate osteophytes at all levels. There is mu ltilevel mild to moderate facet joint osteoarthritis. There are surgical clips in the abdomen. IMPRESSION: 1. Mild lumbar spondylosis. Reviewed, dictated and finalized at location A. IMPRESSION: 1. Mild lumbar spondylosis.
== END 2022-06-05 09:01 | disposition home or self-care (01) ==
PROVIDERS: PCP Internal Medicine; Visit Provider Internal Medicine
DX: R29.898 Other symptoms and signs involving the musculoskeletal system (principal)
CPT/HCPCS: 72100

== ENCOUNTER 2022-06-22 13:59 | Outpatient (RCR) | payer MEDICARE, SELFPAY ==
--- NOTE | 2022-06-22 15:06 | PTOPEVAL1 ---
Assessment and note entered by JT File, PT Evaluation Information Assessment Status Evaluation Diagnosis gait abnormality, generalized weakness Onset 06/09/22 Subjective Information patient reports he forgets a lot. he reports he reports he feels alright physically. patients reports patient has some dementia. she reports lately he has been struggling to get up from the ground, and in general has difficulty walking and moving about. he reports difficulty getting up from his hands and knees. he reports he requires help to get back up. he reports he does not perform this task more than 1x per week usually. he reports he has fallen 1x recently. Reported Pain Level Pain Score 0: Self Report Assessment PT Clinical Summary mr. prater presents to skilled PT services for evaluation and treatment of abnormal gait. he presents this date with abnormal gait, generalized weakness, and decreased balance. he would do well to attend skilled PT to improve his strength, stability, safety, and independence. his goal is to be more steady on his feet, and be able to get up and down from ground without assistance when he is weeding in the garden/working in the yard. Plan of Care Interventions Gait Training,Neuro Re-education,Therapeutic Activities,Therapeutic Exercise PT Services Indicated Yes Treatment Frequency and 3x weekly for 12 visits Duration These treatments will address the objective and functional deficits as defined above. The patient will be advanced safely and appropriately in order for the patient to progress towards his/her prior level of function. Additional exercises will be introduced and as well as a comprehensive home exercise program upon discharge, if needed, ?to ensure carryover of functional gains achieved in the clinic. This treatment plan has been reviewed and agreement upon by the patient.
--- NOTE | 2022-07-21 10:35 | PTOPDC ---
Assessment and note entered by Camelia Benites DPT Evaluation Information Assessment Status Discharge Diagnosis gait abnormality, generalized weakness Onset 06/09/22 Subjective Information Pt reports that he feels a lot better since starting physical therapy. He reports no difficulty recently with his balance and denies falls. He also reports no difficulty with coming up from the floor. Reported Pain Level Pain Score 0: Self Report Assessment PT Clinical Summary Pt presents to PT with significant improvements in strength, gait pattern, static/dynamic balance, and endurance since his initial evaluation. He notes significant improvements in his steadiness and strength as needed for home activities. He was educated on continuing his HEP independently and staying active to maintain his improvements with PT so far as well as to further improve his remaining limitations in strength. He is to be discharged from skilled PT at this time and is to follow-up with any questions or should his functional status change. Plan of Care PT Services Indicated No
== END 2022-07-21 13:32 | disposition home or self-care (01) ==
LOC: CHSPT 13:59
PROVIDERS: Visit Provider Internal Medicine
DX: R26.9 Unspecified abnormalities of gait and mobility (principal)
CPT/HCPCS: 97110; 97161; 97530

== ENCOUNTER 2022-09-11 11:35 | Emergency (ER) | payer MEDICARE, SELFPAY ==
[2022-09-11] VITALS (12 sets, daily range): BP systolic 110–146; BP diastolic 70–95; PULSE 61–147; RESP 18–20; TEMP 36.4; O2SAT 95–99
--- NOTE | ~2022-09-11 | CT_ITS ---
EXAMINATION: CTA chest PE protocol DATE: 09/11/2022 13:30 INDICATION: New onset atrial flutter with rapid ventricular response. Shortness of breath. TECHNIQUE: Computed tomography (CT) pulmonary angiogram of the chest was performed with 100 mL Omnipa que-350 intravenous contrast. Additional 3D reconstructions utilizing coronal maximum intensity proje ction (MIP) were performed. The dose Ernie The dose-length product was 610.37 mGy-cm. COMPARISON: None FINDINGS: Excellent contrast opacification of the pulmonary arteries. There is mild streak artifact from dense contrast in the superior vena cava and right atrium. Moderate scattered respiratory motion artifact d ecreases sensitivity in the segmental and subsegmental pulmonary arteries in the mid and upper lung z ones and renders assessment of the basilar segmental and subsegmental pulmonary arteries in the lower lungs essentially nondiagnostic. No definitive pulmonary embolism. Moderate to severe emphysema. Mil d linear discoid atelectasis in the lingula and right middle lobe. Small groundglass opacities in the right middle and basilar right lower lobe which more equivocal for additional atelectasis versus pne umonia. No pulmonary edema, pleural effusion or pneumothorax. Heart size is normal. Atherosclerotic a nd/or artery calcifications and change of prior median sternotomy and coronary artery bypass grafting . Thoracic aorta is normal in caliber. Calcified right hilar and mediastinal lymph nodes along with m ultiple small splenic and hepatic calcifications consistent with old granulomatous disease. Small adalid unt of chronic pneumobilia in the nondependent left hepatic lobe. Moderate thoracic spondylosis. Coldfusion alban mild anterior wedging at T7-T9. IMPRESSION: 1. No central pulmonary embolism. Sensitivity decreased in the far segmental and subsegmental pulmona ry arteries, essentially nondiagnostic in the lower lung zones due to moderate respiratory motion. 2. Moderate emphysema with opacities in the basilar right middle and right lower lobes most likely at electasis although differential includes pneumonia. 3. Chronic small amount of pneumobilia likely related to prior cholecystectomy and sphincterotomy. Reviewed, dictated and finalized at location A. NT CONTROL WORKER IMPRESSION: 1. No central pulmonary embolism. Sensitivity decreased in the far segmental an d subsegmental pulmonary arteries, essentially nondiagnostic in the lower lung zones due to moderate respiratory motion. 2. Moderate emphysema with opacities in the basilar right middle and right lowe r lobes most likely atelectasis although differential includes pneumonia. 3. Chronic small amount of pneumobilia likely related to prior cholecystectomy and sphincterotomy.
--- NOTE | ~2022-09-11 | CT_ITS ---
EXAMINATION: CT brain wo con DATE: 09/11/2022 12:52 INDICATION: Weakness. Altered mental status. TECHNIQUE: Computed tomography (CT) of the head was performed without intravenous contrast. The mA wa s adjusted according to patient size. Iterative reconstruction technique was employed. The dose-lengt h product was 1286.33 mGy-cm. COMPARISON: Head CT 04/24/2019 FINDINGS: There is no intracranial hemorrhage, acute infarction, or abnormal intracranial mass lesion . The ventricles are normal in size. There is mild mucosal thickening in the paranasal sinuses. The m astoid air cells are normal. IMPRESSION: 1. Normal brain. Reviewed, dictated and finalized at location A. RIBUTOR SALES CONSULTANT IMPRESSION: 1. Normal brain.
--- NOTE | ~2022-09-11 | XR_ITS ---
EXAMINATION: XR chest 1V portable DATE: 09/11/2022 12:58 INDICATION: Atrial flutter with rapid ventricular rate. TECHNIQUE: A single frontal view of the chest was obtained. COMPARISON: Chest 2 views 05/02/2022 FINDINGS: There is mild atelectasis in right lower lung zone. No pleural effusion or pneumothorax. Th e heart size is normal. Median sternotomy wires are noted. Calcified hilar and mediastinal lymph node s are consistent with old granulomatous disease. IMPRESSION: 1. Mild atelectasis in right lower lung zone. Reviewed, dictated and finalized at location A. OUT MAN
--- NOTE | 2022-09-11 11:56 | ED.AMS ---
HPI - Altered Mental Status General Chief Complaint: Altered Mental Status Stated Complaint: altered mental status Time Seen by Provider: 09/11/22 11:56 Source: patient Mode of arrival: EMS Limitations: no limitations History of Present Illness HPI narrative: 72-year-old male with a history of ex smoking,Alzheimer's dementia, bipolar disorder, ADD, AAA status post repair, coronary artery disease status post CABG, COPD, EMELI, dyslipidemia was brought in to the ER by the EMS for -- altered mental status. The patient was driving around when he parked his truck at a particular spot and did not. -- Generalized weakness -- the patient was noted to be hypoxic by the EMS and was placed on oxygen. The patient denies any complaints. -- Noted to have atrial Flutter with a rapid ventricular rate of 145. MD complaint: altered mental status and confusion Onset (ago): hour(s) ( started this morning.) Timing confirmed by: spouse Consistency of symptoms: getting Worse Context: COPD Associated symptoms: denies other symptoms Related Data Home Medications Medication Instructions Recorded Confirmed aspirin 81 mg tablet,delayed 81 mg PO DAILY 08/27/19 09/11/22 release (Aspir-) buspirone 30 mg tablet 15 mg PO TID 09/02/19 09/11/22 donepezil 10 mg tablet (Aricept) 10 mg PO DAILY 09/02/19 09/11/22 melatonin 10 mg tablet 10 mg PO HS 09/02/19 09/11/22 memantine 10 mg tablet (Namenda) 10 mg PO BID 09/02/19 09/11/22 divalproex 250 mg tablet,delayed 500 mg PO BID 06/16/20 09/11/22 release (Depakote) sertraline 50 mg tablet (Zoloft) 75 mg PO DAILY 08/18/20 09/11/22 aripiprazole 2 mg tablet 5 mg PO DAILY 02/02/21 09/11/22 trazodone 50 mg tablet 50 mg PO QHS PRN Insomnia 05/18/21 09/11/22 PreserVision AREDS-2 1 tablet PO DAILY 09/11/22 09/11/22 atorvastatin 20 mg tablet (Lipitor) 20 mg PO DAILY 09/11/22 09/11/22 risperidone 1 mg tablet 1 mg PO HS 09/11/22 09/11/22 Allergies Allergy/AdvReac Type Severity Reaction Status Date / Time No Known Allergies Allergy Verified 09/11/22 12:03 Review of Systems Review of Systems: All systems reviewed & are unremarkable except as noted in HPI and below Constitutional: Constitutional: Reports as per HPI and Reports no additional constitutional complaints Eyes: Eyes: Reports as per HPI and Reports no additional eye complaints ENT: Reports system reviewed and no additional complaints, except as documented and Reports as per HPI Cardiovascular: Cardiovascular: Reports as per HPI and Reports no additional cardiovascular complaints Respiratory: Respiratory: Reports as per HPI and Reports no additional respiratory complaints Gastrointestinal: Gastrointestinal: Reports as per HPI and Reports no additional gastrointestinal complaints Genitourinary: Genitourinary: Reports no additional male genitourinary complaints and Reports as per HPI Musculoskeletal: Musculoskeletal: Reports no additional musculoskeletal complaints and Reports as per HPI Integumentary/Breasts: Skin/Breast: Reports system reviewed and no additional complaints, except as docu and Reports as per HPI Neurologic: Reports system reviewed and no additional complaints, except as documented and Reports as per HPI Comments: Altered mental status without any focal deficits. No seizure activity witnessed. Psychiatric: Psychiatric: Reports no additional psychiatric complaints and Reports as per HPI Endocrine: Endocrine: Reports no additional endocrine complaints and Reports as per HPI Hematologic/Lymphatic: Hematologic/Lymphatic: Reports no additional hematologic/lymphatic complaints and Reports as per HPI Allergic/Immunologic: Allergic/Immunologic: Reports no additional allergic/immunologic complaints and Reports as per HPI [facility] Past Medical History Medical History Abdominal aortic aneurysm Alzheimer disease Anxiety and depression COPD (chronic obstructive pulmonary disease) C
--- NOTE | 2022-09-11 12:04 | PC.NURSE ---
EKG at bedside
--- NOTE | 2022-09-11 12:05 | ECG_ITS ---
Measurements Intervals [place] Rate: 145 P: [place]: 0 QRS: 71 QRSD: 91 T: 252 QT: 279 QTc: 435 Interpretive Statements ATRIAL FLUTTER/TACHYCARDIA WITH RAPID VENTRICULAR RESPONSE NONSPECIFIC ST & T-WAVE ABNORMALITY- DIFFUSE LEADS BASELINE ARTIFACT- II, III, AVR, AVL, AVF, V4-V6 ABNORMAL ECG COMPARED TO ECG 05/02/2022 14:46:54 ATRIAL FLUTTER NOW PRESENT Electronically Signed On 09-11-2022 12:11:21 [place] by Moreno Fields D.O.
--- NOTE | 2022-09-11 12:14 | PC.NURSE ---
Pt at bedside. Per pt , the patient left home today without telling his . She went to look for him and found him on the side of the road. Pt states that although he has a hx of Alzheimer's, he is more altered today than usual. Pt also notes that the patient has had one occurrence in the past where he went into afib, but that he is not typically in afib and does not take medication for it at home.
[2022-09-11 12:37] LABS: Basophils Absolute Auto 0.03 K/mm3 (0.00-0.10); Basophils Percent Auto 0.3 % (0.0-1.0); Eosinophils Absolute Auto 0.02 K/mm3 (0.02-0.50); Eosinophils Percent Auto 0.2 % (1.0-6.0); Hematocrit 46.1 % (37.0-46.0); Hemoglobin 15.3 g/dL (12.4-15.3); Immature Granulocyte Absolute 0.04 K/mm3 (0.00-0.00); Immature Granulocyte Percent A 0.3 % (0.0-0.0); Lymphocytes Absolute Auto 1.03 K/mm3 (1.10-4.50); Lymphocytes Percent Auto 8.8 % (18.0-42.0); Mean Corpuscular HGB Conc 33.2 g/dL (32.0-36.0); Mean Corpuscular Hemoglobin 35.1 pg (27.0-31.0); Mean Corpuscular Volume 105.7 fL (78.0-102.0); Mean Platelet Volume 10.9 fl (8.7-11.0); Monocytes Absolute Auto 0.96 K/mm3 (0.10-0.90); Monocytes Percent Auto 8.2 % (2.0-11.0); Neutrophils Absolute Auto 9.6 K/mm3 (1.7-7.2); Neutrophils Percent Auto 82.2 % (50.0-70.0); Platelet Count Result 104 K/mm3 (150-420); Red Blood Count 4.36 M/mm3 (4.70-6.10); Red Cell Distribution Width 12.2 % (11.6-14.4); White Blood Count 11.7 K/mm3 (4.8-10.8)
--- NOTE | 2022-09-11 12:43 | PC.NURSE ---
Pt to xray
[2022-09-11 12:57] LABS: INR 1.1; Lactic Acid Reflex 1.2 mmol/L (0.4-2.0); Partial Thromboplastin Time 25.2 SEC (23.90-30.70); Prothrombin Time 11.7 Seconds (9.50-12.10)
[2022-09-11 12:58] LABS: D Dimer 1.95 mg/L (0.19-0.50)
[2022-09-11] MEDS: AMIODARONE 150 MG/D5W 100 ML 150 MG/100 ML BAG 600 MG IV CONT (12:59)
[2022-09-11 13:02] LABS: Alanine Aminotransferase 17 U/L (16-63); Albumin Level 3.3 g/dL (3.4-5.0); Alkaline Phosphatase 61 U/L (46-116); Anion Gap 3 mmol/L (8-16); Aspartate Amino Transferase 19 U/L (15-37); Bilirubin,Total 0.8 mg/dL (0.00-1.00); Blood Urea Nitrogen 24 mg/dL (7-18); Calcium 8.9 mg/dL (8.5-10.1); Carbon Dioxide 35 mmol/L (21-32); Chloride 108 mmol/L (98-108); Estimated CRCL calculation 51 ml/min; Estimated Glomerular Filt Rate > 60; Glucose 102 mg/dL (70-99); Lipase 48 U/L (16-77); Osmolality Calculated 306 mOsm/kg (285-295); Potassium 5.4 mmol/L (3.5-5.1); Sodium 146 mmol/L (136-145); Thyroid Stimulating Hormone 1.27 uIU/mL (0.36-3.74); Total Protein 6.3 g/dL (6.4-8.2); Troponin I 27.4 ng/L (0.00-60.4)
[2022-09-11] MEDS: AMIODARONE 360 MG/D5W 200 ML 360 MG/200 ML BAG 33.33 MG IV CONT (13:02)
[2022-09-11 13:12] LABS: SARS-CoV-2 RNA PCR Negative (Negative)
[2022-09-11 13:13] LABS: Add Urine Microscopic? YES; Appearance Urine Clear (Clear); Bilirubin Urine Negative (Negative); Blood Urine 2+ (Negative); Color Urine Light Yellow (Yellow); Glucose Urine UA Negative (Negative); Ketones Urine Negative (Negative); Leukocyte Esterase Ur Negative LEU/UL (Negative); Nitrate Urine Negative (Negative); Protein Urine Negative (Negative); Urobilinogen Urine 0.2 mg/dL (0.2-1.0)
[2022-09-11 13:18] LABS: Bacteria Urine Trace /hpf; Squamous Epithelial Cell Urine Occasional /hpf (Few); WBC Urine None seen /hpf (0-3)
--- NOTE | 2022-09-11 13:39 | PC.NURSE ---
at bedside. Pt/family updated. Pt HR 75 on the monitor.
[2022-09-11] MEDS: SODIUM CHLORIDE 0.9% IV 500 ML 999 ML IV CONT (14:03)
--- NOTE | 2022-09-11 14:21 | PC.NURSE ---
MD at bedside. Pt NSR. Pt/family updated
--- NOTE | 2022-09-11 16:54 | PC.NURSE ---
Report given to Tab at [facility]
[2022-09-11] MEDS: ENOXAPARIN 100 MG/ML SYRINGE 80 MG SUB-Q (17:03)
--- NOTE | 2022-09-11 17:15 | PC.NURSE ---
Transportation called and arranged with Tea Estrella
[2022-09-13 16:41] LABS: Valproic Acid 60.4 mg/L (50.0-100.0)
== END 2022-09-11 18:10 | disposition short-term general hospital (02) ==
PROVIDERS: Emergency Provider Internal Medicine Critical Care Medicine
DX: I49.8 Other specified cardiac arrhythmias (principal); R41.82 Altered mental status, unspecified; R09.02 Hypoxemia; R53.1 Weakness; I25.10 Atherosclerotic heart disease of native coronary artery without angina pectoris; G30.9 Alzheimer's disease, unspecified; F02.80 Dementia in other diseases classified elsewhere, unspecified severity, without behavioral disturbance, psychotic disturbance, mood disturbance, and anxiety; J44.9 Chronic obstructive pulmonary disease, unspecified; E78.2 Mixed hyperlipidemia; F32.A Depression, unspecified; F41.9 Anxiety disorder, unspecified; Z95.1 Presence of aortocoronary bypass graft; Z20.822 Contact with and (suspected) exposure to COVID-19; Z79.82 Long term (current) use of aspirin; Z87.891 Personal history of nicotine dependence; Z79.899 Other long term (current) drug therapy
CPT/HCPCS: 36415; 70450; 71045; 71275; 80053; 80164; 81001; 83605; 83690; 84443; 84484; 85025; 85380; 85610; 85730; 93005; 96365; 96366; 96372; 99285; J0282; J1650; J7040; Q9967; U0003; U0005

== ENCOUNTER 2022-11-23 15:08 | Observation (INO) | payer MEDICARE, SELFPAY ==
[2022-11-23] VITALS (28 sets, daily range): BP systolic 84–155; BP diastolic 43–77; PULSE 52–71; RESP 18–20; TEMP 36.7–37.1; O2SAT 93–97; BMI 28.8
--- NOTE | ~2022-11-23 | CT_ITS ---
EXAMINATION: CTA chest PE protocol DATE: 11/23/2022 17:51 INDICATION: Generalized weakness TECHNIQUE: Computed tomography angiography (CTA) of the chest was performed with 100 mL Omnipaque-350 intravenous contrast timed to evaluate the pulmonary arteries. Coronal maximum intensity projection 3D-reconstructions were created by the technologist. The dose-length product (DLP) was 846.77 mGy-cm. Automated exposure control and iterative reconstruction technique were employed. COMPARISON: 09/11/2022 FINDINGS: The pulmonary arteries are well-opacified. No pulmonary embolism is identified. There is m oderate emphysema. The lungs are free of focal airspace opacities. No pleural effusion or pneumothora x. Changes of coronary artery bypass grafting are noted. There is mild atelectasis of the lower lobes . No pathologically enlarged thoracic lymph nodes are identified. The heart size is normal. Punctate calcifications in otherwise normal appearing liver and spleen likely represent healed granulomatous d isease. There is moderate thoracic spondylosis. IMPRESSION: 1. No pulmonary embolism or acute cardiopulmonary abnormality. Reviewed, dictated and finalized at location F.
--- NOTE | 2022-11-23 15:30 | ECG_ITS ---
Measurements Intervals [place] Rate: 57 P: 52 TN: 145 QRS: 50 QRSD: 108 T: 34 QT: 421 QTc: 411 Interpretive Statements SINUS BRADYCARDIA NONSPECIFIC T-WAVE ABNORMALITY BORDERLINE ECG COMPARED TO ECG 09/11/2022 12:05:50 SINUS BRADYCARDIA HAS REPLACED ATRIAL FLUTTER Electronically Signed On 11-24-2022 16:01:33 CDT by Soy Robert M.D.
[2022-11-23] MEDS: SODIUM CHLORIDE 0.9% IV 1,000 ML 999 ML IV CONT (15:45)
[2022-11-23 15:55] LABS: Basophils Absolute Auto 0.02 K/mm3 (0.00-0.10); Basophils Percent Auto 0.5 % (0.0-1.0); Eosinophils Absolute Auto 0.05 K/mm3 (0.02-0.50); Eosinophils Percent Auto 1.2 % (1.0-6.0); Hematocrit 36.4 % (37.0-46.0); Hemoglobin 11.8 g/dL (12.4-15.3); Immature Granulocyte Absolute 0.02 K/mm3 (0.00-0.00); Immature Granulocyte Percent A 0.5 % (0.0-0.0); Lymphocytes Absolute Auto 1.26 K/mm3 (1.10-4.50); Lymphocytes Percent Auto 30.7 % (18.0-42.0); Mean Corpuscular HGB Conc 32.4 g/dL (32.0-36.0); Mean Corpuscular Hemoglobin 34.6 pg (27.0-31.0); Mean Corpuscular Volume 106.7 fL (78.0-102.0); Mean Platelet Volume 10.9 fl (8.7-11.0); Monocytes Absolute Auto 0.56 K/mm3 (0.10-0.90); Monocytes Percent Auto 13.7 % (2.0-11.0); Neutrophils Absolute Auto 2.2 K/mm3 (1.7-7.2); Neutrophils Percent Auto 53.4 % (50.0-70.0); Platelet Count Result 100 K/mm3 (150-420); Red Blood Count 3.41 M/mm3 (4.70-6.10); Red Cell Distribution Width 12.9 % (11.6-14.4); White Blood Count 4.1 K/mm3 (4.8-10.8)
[2022-11-23 16:14] LABS: Albumin Level 2.8 g/dL (3.4-5.0); Alkaline Phosphatase 54 U/L (46-116); Anion Gap 5 mmol/L (8-16); Aspartate Amino Transferase 18 U/L (15-37); Bilirubin,Total 0.5 mg/dL (0.00-1.00); Blood Urea Nitrogen 31 mg/dL (7-18); Calcium 8.1 mg/dL (8.5-10.1); Carbon Dioxide 34 mmol/L (21-32); Chloride 110 mmol/L (98-108); Estimated CRCL calculation 45 ml/min; Estimated Glomerular Filt Rate 56; Glucose 116 mg/dL (70-99); Osmolality Calculated 315 mOsm/kg (285-295); Potassium 4.2 mmol/L (3.5-5.1); Sodium 149 mmol/L (136-145); Total Protein 5.6 g/dL (6.4-8.2); Troponin I 21.5 ng/L (0.00-60.4)
[2022-11-23 16:18] LABS: CRP < 0.5 mg/dL (0.0-0.9); Lactic Acid Reflex 1.4 mmol/L (0.4-2.0)
[2022-11-23 16:19] LABS: D Dimer 1.45 mg/L (0.19-0.50)
[2022-11-23 16:28] LABS: Alanine Aminotransferase < 6 U/L (16-63)
[2022-11-23 16:30] LABS: INR 1.2; Partial Thromboplastin Time 25.4 SEC (23.90-30.70); Prothrombin Time 12.7 Seconds (9.50-12.10)
[2022-11-23 16:31] LABS: Influenza A QL RT-PCR Negative (Negative); Influenza B QL RT-PCR Negative (Negative); RSV RNA, RT-PCR Negative (Negative); SARS-CoV-2 RNA PCR Negative (Negative)
[2022-11-23 16:34] LABS: Bilirubin Urine Negative (Negative); Blood Urine Negative (Negative); Glucose Urine UA Negative (Negative); Ketones Urine Trace (Negative); Leukocyte Esterase Ur Negative LEU/UL (Negative); Nitrate Urine Negative (Negative); Protein Urine Trace (Negative); Specific Grav Ur 1.025 (1.010-1.020); pH Urine 5.5 (5.0-8.0)
[2022-11-23 16:44] LABS: Add Urine Microscopic? YES; Appearance Urine Slightly Cloudy (Clear); Bacteria Urine Trace /hpf; Color Urine Dark Yellow (Yellow); Hyaline Casts Urine 0-2 /lpf; RBC Urine None seen /hpf (0-2); Squamous Epithelial Cell Urine Few /hpf (Few); WBC Urine None seen /hpf (0-3)
[2022-11-23 16:45] LABS: Mucus Urine Few /lpf
--- NOTE | 2022-11-23 16:46 | ED.WEAKNESS ---
HPI - Weakness General Chief complaint: Weakness Stated complaint: weakness Time Seen by Provider: 11/23/22 15:14 Source: patient and EMS Mode of arrival: ambulatory Limitations: no limitations History of Present Illness HPI Narrative: This is a 75-year-old gentleman with a history of having weakness started today while he was outside mowing his lawn and was on the grass and was unable to get a PA was too weak, patient with history of AFib and history of dementia was brought in by EMS with generalized weakness and dehydration. Otherwise the patient was not complaining of any chest pain maybe mild shortness of breath with no nausea vomiting no headache no blurry vision no fever chills no dysuria. MD Complaint: generalized weakness Onset (ago): day(s) Duration: constant Location: generalized Related Data Home Medications Medication Instructions Recorded Confirmed aspirin 81 mg tablet,delayed 81 mg PO DAILY 08/27/19 11/23/22 release (Aspir-) buspirone 30 mg tablet 15 mg PO TID 09/02/19 11/23/22 donepezil 10 mg tablet (Aricept) 10 mg PO DAILY 09/02/19 11/23/22 melatonin 10 mg tablet 10 mg PO HS 09/02/19 11/23/22 memantine 10 mg tablet (Namenda) 10 mg PO BID 09/02/19 11/23/22 sertraline 50 mg tablet (Zoloft) 75 mg PO DAILY 08/18/20 11/23/22 trazodone 50 mg tablet 50 mg PO QHS PRN Insomnia 05/18/21 11/23/22 PreserVision AREDS-2 1 tablet PO DAILY 09/11/22 11/23/22 atorvastatin 20 mg tablet (Lipitor) 20 mg PO DAILY 09/11/22 11/23/22 risperidone 1 mg tablet 1 mg PO HS 09/11/22 11/23/22 apixaban 5 mg tablet 5 mg PO BID 09/18/22 11/23/22 divalproex 250 mg tablet,delayed 500 mg PO TID 09/18/22 11/23/22 release (Depakote) cholecalciferol (vitamin D3) 50 50 mcg PO DAILY 10/04/22 11/23/22 mcg (2,000 unit) capsule Allergies Allergy/AdvReac Type Severity Reaction Status Date / Time No Known Allergies Allergy Verified 10/04/22 07:23 Review of Systems Review of Systems: All systems reviewed & are unremarkable except as noted in HPI and below PMFSH Past Medical History Medical History Abdominal aortic aneurysm Alzheimer disease Anxiety and depression COPD (chronic obstructive pulmonary disease) Coronary artery disease (CAD) excluded Gallbladder obstruction Lesion of pancreas Mixed hyperlipidemia Obesity EMELI (obstructive sleep apnea) Postprandial diarrhea Surgical History Surgical History H/O cataract removal with insertion of prosthetic lens Hx of cholecystectomy S/P AAA (abdominal aortic aneurysm) repair S/P CABG (coronary artery bypass graft) Social History Social History Smoking packs per day: 1 Smoking cigarettes per day: 20.0 Years smoked: 50 Smoking pack-years: 50.00 Smoking status: Former smoker Tobacco type: cigarettes Second hand tobacco smoke exposure: Yes Smoking end date: 08/13/10 Alcohol intake: current Alcohol use details: social Substance use: never Substance use type: does not use Living arrangements: with family Gender identity (if verbalized by the patient): Male Spiritual care concerns: No Exam Const: General: healthy appearing and no acute distress Nutritional Appearance: well nourished Limitations: no limitations HENMT: Head: normal to inspection Eyes: Conjunctivae: conjunctivae normal EOM: EOMs intact bilaterally Neck: Neck: normal visual inspection, no lymphadenopathy and no meningeal signs Chest: Chest palpation & inspection: normal inspection of the chest Resp: Effort & Inspection: normal respiratory effort Auscultation: clear to auscultation bilaterally Cardio: Rate: bradycardic Rhythm: regular rhythm GI: GI Palp: Yes Soft to palpation Auscultation: normal bowel sounds : General: Yes bladder normal to palpation Urinary Catheter: Urinary Catheter: patent and draining
[2022-11-23 16:59] LABS: NT Pro B Type Natriuretic Pept 1862 pg/mL (0-125)
--- NOTE | 2022-11-23 18:26 | PC.NURSE ---
1600 pt resting per cot. call block in reach 1700 no needs at this time per pt 1730 sitting in room with pt. awaiting lab and ct results. 182 call placed to hospitalist awaiting call back
--- NOTE | 2022-11-23 19:08 | PC.NURSE ---
report to elio wilburn all questions answered.
--- NOTE | 2022-11-23 19:30 | PC.NURSE ---
Upon entering room and p report pt is sitting in bed, no distress, POC explained to pt and for admit and awating call back from MANAGER [employer]PLI[employer] for admit. upset about wait times and pt not having anything to eat. Explained about wait time for MANAGER COMPLIANCE call back to get pt admitted. Pts VSS Pt given sandwich and tray of food to eat and water to drink per order of reg diet per ERP Dr Mccabe.
--- NOTE | 2022-11-23 20:05 | PC.NURSE ---
Call placed to floor for admit to Rm 207 for 23 hr obs.
--- NOTE | 2022-11-23 20:55 | ADMGEN ---
This patient, David Martinez Sr., was admitted to 2nd Floor Room 207-1. Patient/family oriented to hospital policies and general routines including ID bracelet, bed and alarms, visiting hours, pain management, procedures, bathroom and other care routines, personal items, smoking policy, room service/diet, and visiting hours. Information on how to activate the Rapid Response Team has been discussed. Patient/Family are encouraged to report perceived risks to care and to ask questions if they do not understand what they are told or what they should do.
[2022-11-23] MEDS: risperiDONE 1 MG TABLET PO (21:28)
[2022-11-23] MEDS: MELATONIN 5 MG TABLET 10 MG PO (21:28)
[2022-11-24] VITALS: BP 145/90; PULSE 48; RESP 17; TEMP 36.6; O2SAT 97
[2022-11-24 04:00] VITALS: PULSE 50
[2022-11-24 05:29] LABS: Basophils Absolute Auto 0.02 K/mm3 (0.00-0.10); Basophils Percent Auto 0.4 % (0.0-1.0); Eosinophils Absolute Auto 0.08 K/mm3 (0.02-0.50); Eosinophils Percent Auto 1.6 % (1.0-6.0); Hemoglobin 12.1 g/dL (12.4-15.3); Immature Granulocyte Absolute 0.02 K/mm3 (0.00-0.00); Immature Granulocyte Percent A 0.4 % (0.0-0.0); Immature Platelet Fraction Pct 2.3 % (1.0-7.0); Lymphocytes Absolute Auto 1.79 K/mm3 (1.10-4.50); Lymphocytes Percent Auto 36.5 % (18.0-42.0); Mean Corpuscular HGB Conc 32.7 g/dL (32.0-36.0); Mean Corpuscular Hemoglobin 34.8 pg (27.0-31.0); Mean Corpuscular Volume 106.3 fL (78.0-102.0); Mean Platelet Volume 10.8 fl (8.7-11.0); Monocytes Absolute Auto 0.59 K/mm3 (0.10-0.90); Neutrophils Absolute Auto 2.4 K/mm3 (1.7-7.2); Neutrophils Percent Auto 49.1 % (50.0-70.0); Platelet Count Result 100 K/mm3 (150-420); Red Blood Count 3.48 M/mm3 (4.70-6.10); White Blood Count 4.9 K/mm3 (4.8-10.8)
[2022-11-24 06:45] LABS: Anion Gap -1 mmol/L (8-16); Blood Urea Nitrogen 26 mg/dL (9-20); Calcium 8.3 mg/dL (8.4-10.2); Carbon Dioxide 36 mmol/L (22-30); Chloride 105 mmol/L (98-107); Estimated CRCL calculation 55 ml/min; Estimated Glomerular Filt Rate > 60; Glucose 77 mg/dL (65-110); Osmolality Calculated 293 mOsm/kg (285-295); Potassium 4.5 mmol/L (3.4-5.0); Sodium 140 mmol/L (137-145)
[2022-11-24 08:00] VITALS: BP 163/81; PULSE 47; PULSE 60; RESP 14; TEMP 36.3; O2SAT 95
[2022-11-24] MEDS: MEMANTINE 5 MG TABLET 10 MG PO ×2 (08:34→16:58)
[2022-11-24] MEDS: SERTRALINE HCL 25 MG TABLET 75 MG PO (08:34)
[2022-11-24] MEDS: TAMSULOSIN HCL 0.4 MG CAPSULE PO (08:35)
[2022-11-24] MEDS: ATORVASTATIN 10 MG TABLET 20 MG PO (08:35)
[2022-11-24] MEDS: busPIRone HCL 5 MG TABLET 15 MG PO ×3 (08:36→16:57)
[2022-11-24] MEDS: APIXABAN 2.5 MG TABLET 5 MG PO ×2 (08:37→16:58)
[2022-11-24] MEDS: DONEPEZIL HCL 5 MG TABLET 10 MG PO (08:37)
[2022-11-24] MEDS: ASPIRIN 81 MG ENTERIC TABLET PO (08:37)
[2022-11-24] MEDS: DIVALPROEX SODIUM DR 250 MG TABEC 500 MG PO ×2 (09:50→16:58)
--- NOTE | 2022-11-24 09:50 | PM.IMHP ---
H&P: HPI History of Present Illness Date/Time: 11/24/22 09:50 Chief Complaint: weakness, Fall , hypotension, bradycardia Narrative: This is a 72 year old male that presented to the emergency room with hypotension and was found on the ground outside while working in the yard. Patient denied passing stated that his legs gave out. Patient has a PMH of dementia, ESPERANZA, AAA, CAD, Anxiety, COPD , Afib. Patient was hypotensive in the emergency room given a liter of fluids and his blood pressure came up. Patient had some acute kidney injury, weakness, bradycardia. Patient denied any shortness of breath and he was found to be hypernatremic, w acute kidney injury, hemoglobin was normal . Patient will be admitted and will be seen by physical therapy with the possibility of placement if patient does not meet criteria for pt. When I questioned patient about his conditions he referred me to his . Review of Systems Review of Systems: weakness, fall, bradycardia All systems reviewed & are unremarkable except as noted in HPI and below PMFSH Past Medical History Medical History Abdominal aortic aneurysm Alzheimer disease Anxiety and depression COPD (chronic obstructive pulmonary disease) Coronary artery disease (CAD) excluded Gallbladder obstruction Lesion of pancreas Mixed hyperlipidemia Obesity EMELI (obstructive sleep apnea) Postprandial diarrhea Surgical History Surgical History H/O cataract removal with insertion of prosthetic lens Hx of cholecystectomy S/P AAA (abdominal aortic aneurysm) repair S/P CABG (coronary artery bypass graft) Social History Social History Smoking packs per day: 1 Smoking cigarettes per day: 20.0 Years smoked: 50 Smoking pack-years: 50.00 Smoking status: Former smoker Tobacco type: cigarettes Second hand tobacco smoke exposure: Yes Smoking end date: 11/12/99 Additional smoking assessment comments: pt unsure when he quit smoking, but knows it has been over 20 years. Alcohol intake: current Drinks per week: 1 Alcohol use details: social Substance use: never Substance use type: does not use Lack of Transportation: No Lack of Food: Never True Current Housing: I Have Housing Concerned About Future Housing: No Difficulty Paying Gas/Electric Bills: No Difficulty Paying for Meds: No Currently Unemployed: No Education: High School Diploma/GED Difficulty w/ Childcare or Family Care: No Living arrangements: with family Gender identity (if verbalized by the patient): Male Spiritual care concerns: No Comments At time as signature, I have reviewed and agree with nursing past medical, social, surgical and family history. Please see nursing chart for further information. There is no relevant family history pertinent to the presenting complaint. Meds Home Medications and Allergies Home Medications Medication Instructions Recorded Confirmed Type aspirin 81 mg tablet,delayed 81 mg PO DAILY 08/27/19 11/23/22 History release (Aspir-) buspirone 30 mg tablet 15 mg PO TID 09/02/19 11/23/22 History donepezil 10 mg tablet (Aricept) 10 mg PO DAILY 09/02/19 11/23/22 History melatonin 10 mg tablet 10 mg PO HS 09/02/19 11/23/22 History memantine 10 mg tablet (Namenda) 10 mg PO BID 09/02/19 11/23/22 History sertraline 50 mg tablet (Zoloft) 75 mg PO DAILY 08/18/20 11/23/22 History trazodone 50 mg tablet 50 mg PO QHS PRN Insomnia 05/18/21 11/23/22 History PreserVision AREDS-2 1 tablet PO DAILY 09/11/22 11/23/22 History atorvastatin 20 mg tablet (Lipitor) 20 mg PO DAILY 09/11/22 11/23/22 History risperidone 1 mg tablet 1 mg PO HS 09/11/22 11/23/22 History apixaban 5 mg tablet 5 mg PO BID 09/18/22 11/23/22 History divalproex 250 mg tablet,delayed 500 mg PO TID 09/18/22 11/23/22 History release (Depakote) ch
[2022-11-24 12:00] VITALS: PULSE 61
[2022-11-24 16:00] VITALS: BP 157/75; PULSE 49; PULSE 53; RESP 20; TEMP 36.3; O2SAT 95
[2022-11-24] MEDS: MELATONIN 5 MG TABLET 10 MG PO (20:19)
[2022-11-24] MEDS: risperiDONE 1 MG TABLET PO (20:19)
[2022-11-25] VITALS: BP 133/72; PULSE 53; RESP 18; TEMP 35.9; O2SAT 91
[2022-11-25 05:10] LABS: Hematocrit 38.8 % (37.0-46.0); Hemoglobin 12.7 g/dL (12.4-15.3); Immature Platelet Fraction Pct 2.5 % (1.0-7.0); Mean Corpuscular HGB Conc 32.7 g/dL (32.0-36.0); Mean Corpuscular Hemoglobin 34.6 pg (27.0-31.0); Mean Corpuscular Volume 105.7 fL (78.0-102.0); Mean Platelet Volume 10.9 fl (8.7-11.0); Platelet Count Result 106 K/mm3 (150-420); Red Blood Count 3.67 M/mm3 (4.70-6.10); Red Cell Distribution Width 12.8 % (11.6-14.4); White Blood Count 8.2 K/mm3 (4.8-10.8)
[2022-11-25 05:16] LABS: Anion Gap 3 mmol/L (8-16); Blood Urea Nitrogen 26 mg/dL (7-18); Calcium 8.7 mg/dL (8.5-10.1); Carbon Dioxide 35 mmol/L (21-32); Chloride 106 mmol/L (98-108); Estimated CRCL calculation 55 ml/min; Estimated Glomerular Filt Rate > 60; Glucose 84 mg/dL (70-99); Osmolality Calculated 301 mOsm/kg (285-295); Potassium 4.7 mmol/L (3.5-5.1); Sodium 144 mmol/L (136-145)
[2022-11-25 08:00] VITALS: BP 141/71; PULSE 58; RESP 16; TEMP 36.2; O2SAT 94
[2022-11-25] MEDS: TAMSULOSIN HCL 0.4 MG CAPSULE PO (08:27)
[2022-11-25] MEDS: SERTRALINE HCL 25 MG TABLET 75 MG PO (08:27)
[2022-11-25] MEDS: ASPIRIN 81 MG ENTERIC TABLET PO (08:27)
[2022-11-25] MEDS: busPIRone HCL 5 MG TABLET 15 MG PO ×2 (08:28→12:19)
[2022-11-25] MEDS: MEMANTINE 5 MG TABLET 10 MG PO (08:28)
[2022-11-25] MEDS: ATORVASTATIN 10 MG TABLET 20 MG PO (08:28)
[2022-11-25] MEDS: DONEPEZIL HCL 5 MG TABLET 10 MG PO (08:29)
[2022-11-25] MEDS: DIVALPROEX SODIUM DR 250 MG TABEC 500 MG PO ×2 (08:29→12:18)
[2022-11-25] MEDS: APIXABAN 2.5 MG TABLET 5 MG PO (08:29)
--- NOTE | 2022-11-25 10:52 | PM.DS ---
DS: Admitting Diagnosis Discharge Date 11/25/2022 Admitting Diagnosis Weakness, Fall, Shortness of breath DS: Discharge Diagnosis Discharge Diagnosis (1) Weakness: Code(s): R53.1 - Weakness Status: Acute Assessment and Plan: PT evaluated and treated no needs (2) CHF (congestive heart failure): Qualifiers: Heart failure chronicity: unspecified Heart failure type: unspecified Qualified Code(s): I50.9 - Heart failure, unspecified Code(s): I50.9 - Heart failure, unspecified Status: Acute Assessment and Plan: lasix oxygen as indicated monitor levels (3) Dehydration: Code(s): E86.0 - Dehydration Status: Acute Assessment and Plan: Gently hydrate (4) COPD (chronic obstructive pulmonary disease): Code(s): J44.9 - Chronic obstructive pulmonary disease, unspecified Status: Acute Assessment and Plan: breathing treatment oxygen nebulizer treatment inhaler (5) Cognitive impairment: Code(s): R41.89 - Other symptoms and signs involving cognitive functions and awareness Status: Acute Assessment and Plan: continue with home medication DS: Summary Hospital Course Reason for hospitalization: fall, hypotension, Bradycardia Hospital Course: This is a 72 year old male that had a fall and was brought in and found to be hypotension with some bradycardia. Patient has some memory issues and he was weak. Patient was treated with IVF due to some dehydration and acute kidney injury. Patient has been up to the chair and needed stand by assist to the chair with a walker. Mr. Martinez labs have improved sodium 144, chloride 106, BUN 26 creatine 1, chlamydia oxide 35, RBCs 3.67, WBCs 8.2, hemoglobin 12.7, hematocrit 38 platelets 106. Patient states he is feeling better he will go home or he will have some home health will follow-up with his primary care provider. Patient blood pressure is 141/[id number] 94% on room air. Patient states he is feeling a lot better and denies any pain, dizziness, shortness of breath and he has remained afebrile Time Spent with Patient Time attestation: Total time spent providing and/or coordinating discharge services: Exam Narrative: GENERAL:Well-appearing, well-nourished, and in no acute distress. HEAD:Normocephalic, atraumatic. EYES: PERRLA and EOMI. ENT: Nares clear, no rhinorrhea or epistaxis. Mucous membranes moist. NECK: Supple. CHEST: Clear to auscultation. No respiratory distress. HEART: Bradycardia Regular rate and rhythm. Normal peripheral pulses. ABDOMEN: Soft, nontender, nondistended, normal active bowel sounds. EXTREMITIES: Normal range of motion. No edema. SKIN: Warm, dry, no rash. NEURO: No focal deficits. Alert and oriented x3. DS: Data Data Completed and Pending Labs on day of discharge: Labs from last 24 hours 11/25/22 11/25/22 05:02 05:02 WBC 8.2 RBC 3.67 L Hgb 12.7 Hct 38.8 MCV 105.7 H MCH 34.6 H MCHC 32.7 RDW 12.8 Plt Count 106 L MPV 10.9 % Immature Plt Fraction 2.5 Sodium 144 Potassium 4.7 Chloride 106 Carbon Dioxide 35 H Anion Gap 3 L BUN 26 H Creatinine 1.00 Estim Creat Clear Calc 55 Estimated GFR > 60 Glucose 84 Calculated Osmolality 301 H Calcium 8.7 Preliminary micro results at discharge 11/23/22 15:45 Blood Culture - Preliminary Blood 11/23/22 15:43 Blood Culture - Preliminary Blood Discharge Plan Discharge Attending physician on discharge: Tashi Valentino Consulting providers: Ronald Rodas ; Soy Robert ; Javier Duarte Discharging Clinician: Ronald Rodas Anticipated Discharge Date/Time: 11/25/22 10:47 Patient Disposition: Home Health Service Activity: may shower, no driving and as tolerated Diet: heart healthy Wound Care Instructions: follow printed instructions Discharge Instructions: Per Care Coordination:
--- NOTE | 2022-11-25 12:50 | PC.NURSE ---
Patient discharged into 's care. Reviewed discharge instructions with patient and . Reminded to follow fall precautions with patient. Taken to private vehicle via wheelchair. IV removed intact.
--- NOTE | 2022-11-28 12:18 | PC.NURSE ---
Unable to contact for discharge call back.
== END 2022-11-25 12:45 | disposition home health service (06) ==
LOC: CHSED 19:29 → CHS2ND 20:35
PROVIDERS: Nurse Practitioner Family; Admitting Provider Internal Medicine; Emergency Provider Emergency Medicine; PCP Family Medicine; Visit Provider Internal Medicine
DX: E86.0 Dehydration (principal); I95.9 Hypotension, unspecified; I25.10 Atherosclerotic heart disease of native coronary artery without angina pectoris; I48.20 Chronic atrial fibrillation, unspecified; I50.9 Heart failure, unspecified; J44.9 Chronic obstructive pulmonary disease, unspecified; E78.2 Mixed hyperlipidemia; E66.9 Obesity, unspecified; K52.89 Other specified noninfective gastroenteritis and colitis; R53.1 Weakness; G47.33 Obstructive sleep apnea (adult) (pediatric); F03.90 Unspecified dementia, unspecified severity, without behavioral disturbance, psychotic disturbance, mood disturbance, and anxiety; F32.A Depression, unspecified; F41.9 Anxiety disorder, unspecified; Z20.822 Contact with and (suspected) exposure to COVID-19; Z95.1 Presence of aortocoronary bypass graft; Z79.82 Long term (current) use of aspirin; Z87.891 Personal history of nicotine dependence; Z79.01 Long term (current) use of anticoagulants
CPT/HCPCS: 36415; 71275; 80048; 80053; 81001; 83605; 83880; 84484; 85025; 85027; 85055; 85380; 85610; 85730; 86140; 87040; 87637; 93005; 96360; 97161; 99285; A9270; G0378; J7030; Q9967

== ENCOUNTER 2022-12-05 11:05 | Observation (INO) | payer MEDICARE, SELFPAY ==
--- NOTE | ~2022-12-05 | CT_ITS ---
EXAMINATION: CT brain wo con DATE: 12/05/2022 11:52 INDICATION: Weakness TECHNIQUE: Computed tomography (CT) of the head was performed without intravenous contrast. Sagittal and coronal reconstructions were performed. The mA was adjusted according to patient size. Iterative reconstruction technique was employed. The dose-length product was 756.67 mGy-cm. COMPARISON: head CT dated 09/11/22 FINDINGS: No acute intracranial hemorrhage, acute infarction or abnormal extra axial fluid collection. There is mild scattered white matter hypoattenuation consistent with chronic small vessel ischemic disease. S ymmetric prominence of the sulci consistent with moderate age-appropriate diffuse cerebral volume los s. Ventricles are normal and symmetric. No mass/mass effect. Changes of bilateral intraocular lens re placement. The orbits and mastoid air cells are normal. Mild mucosal thickening the ethmoid sinuses. Intracranial calcified cerebral atherosclerosis is noted. IMPRESSION: 1. No acute intracranial process. 2. Age-related changes including moderate diffuse volume loss and mild scattered white matter hypoatt enuation consistent with chronic small vessel ischemic disease. Reviewed, dictated and finalized at location A. IMPRESSION: 1. No acute intracranial process. 2. Age-related changes including moderate diffuse volume loss and mild scattere d white matter hypoattenuation consistent with chronic small vessel ischemic di sease.
--- NOTE | ~2022-12-05 | XR_ITS ---
EXAMINATION: XR chest 2V DATE: 12/05/2022 11:34 INDICATION: Wheezing TECHNIQUE: AP and lateral views of the chest are obtained. COMPARISON: 09/01/2022 FINDINGS: There are minimal airspace opacities of the left lung base. There is a small left pleural e ffusion. No pneumothorax is identified. The heart size is normal. There is moderate thoracic spondylo sis. Median sternotomy wires and mediastinal surgical clips are seen, likely from prior coronary benigno ry bypass grafting. Surgical clips in the right upper quadrant are likely from prior cholecystectomy. IMPRESSION: 1. Small left pleural effusion with minimal left basilar airspace opacity, likely atelectasis. Reviewed, dictated and finalized at location L. IMPRESSION: 1. Small left pleural effusion with minimal left basilar airspace opacity, like ly atelectasis.
--- NOTE | ~2022-12-05 | MR_ITS ---
EXAMINATION: MR brain/brain stem wo con DATE: 12/07/2022 16:40 INDICATION: Dementia. TECHNIQUE: Magnetic resonance imaging (MRI) of the brain and brainstem was performed without intraven ous contrast. COMPARISON: Brain MRI 01/18/2022, head CT 12/05/2022 FINDINGS: There are scattered areas of nonspecific increased T2-weighted signal intensity in the cere bral white matter. There is no intracranial hemorrhage, acute infarction, or abnormal intracranial ma ss lesion. The ventricles are normal in size. The paranasal sinuses are clear. There are likely posada es of ocular lens replacement surgeries. IMPRESSION: 1. Stable mild nonspecific cerebral white matter disease, which likely represents chronic small vesse l ischemic disease. Reviewed, dictated and finalized at location E. IMPRESSION: 1. Stable mild nonspecific cerebral white matter disease, which likely represen ts chronic small vessel ischemic disease.
[2022-12-05 11:07] VITALS: BP 130/74; PULSE 79; RESP 20; TEMP 36.6; O2SAT 95
--- NOTE | 2022-12-05 11:16 | ECG_ITS ---
Measurements Intervals [place] Rate: 75 P: 93 DE: 154 QRS: 28 QRSD: 98 T: 41 QT: 372 QTc: 418 Interpretive Statements SINUS RHYTHM NONSPECIFIC T-WAVE ABNORMALITY ABNORMAL ECG COMPARED TO ECG 11/23/2022 15:43:31 SINUS RHYTHM NOW PRESENT Electronically Signed On 12-05-2022 14:42:07 CDT by Derik Mckinney M.D.
--- NOTE | 2022-12-05 11:30 | ED.WEAKNESS ---
HPI - Weakness General Chief complaint: Weakness Stated complaint: weakness Time Seen by Provider: 12/05/22 11:30 Source: patient Mode of arrival: wheelchair Limitations: dementia History of Present Illness HPI Narrative: Patient is a 72-year-old male with a history of dementia, congestive heart failure, hyperlipidemia, presenting to the emergency department for evaluation of generalized weakness. Patient brought in for for significant weakness, states that she has been searching for placement for him, but has not able to find this at this point. Patient unable to get out of bed today, patient's was unable to lift him. No fever, chills. Cognition seems to be a bit worse than typical per . At the time of my assessment, patient is alert and oriented to person, place, can identify the year, but states it is May. He denies any complaint of headache pain, chest pain or abdominal pain, reports that he aches all over. Additional history limited secondary to dementia. Related Data Home Medications Medication Instructions Recorded Confirmed aspirin 81 mg tablet,delayed 81 mg PO DAILY 08/27/19 11/23/22 release (Aspir-) buspirone 30 mg tablet 15 mg PO TID 09/02/19 11/23/22 donepezil 10 mg tablet (Aricept) 10 mg PO DAILY 09/02/19 11/23/22 melatonin 10 mg tablet 10 mg PO HS 09/02/19 11/23/22 memantine 10 mg tablet (Namenda) 10 mg PO BID 09/02/19 11/23/22 sertraline 50 mg tablet (Zoloft) 75 mg PO DAILY 08/18/20 11/23/22 trazodone 50 mg tablet 50 mg PO QHS PRN Insomnia 05/18/21 11/23/22 PreserVision AREDS-2 1 tablet PO DAILY 09/11/22 11/23/22 atorvastatin 20 mg tablet (Lipitor) 20 mg PO DAILY 09/11/22 11/23/22 risperidone 1 mg tablet 1 mg PO HS 09/11/22 11/23/22 apixaban 5 mg tablet 5 mg PO BID 09/18/22 11/23/22 divalproex 250 mg tablet,delayed 500 mg PO TID 09/18/22 11/23/22 release (Depakote) cholecalciferol (vitamin D3) 50 50 mcg PO DAILY 10/04/22 11/23/22 mcg (2,000 unit) capsule Allergies Allergy/AdvReac Type Severity Reaction Status Date / Time No Known Allergies Allergy Verified 10/04/22 07:23 Review of Systems Review of Systems: ROS unobtainable: Yes unobtainable due to medical condition and unobtainable due to mental status [facility] Past Medical History Medical History Abdominal aortic aneurysm Alzheimer disease Anxiety and depression COPD (chronic obstructive pulmonary disease) Coronary artery disease (CAD) excluded Gallbladder obstruction Lesion of pancreas Mixed hyperlipidemia Obesity EMELI (obstructive sleep apnea) Postprandial diarrhea Surgical History Surgical History H/O cataract removal with insertion of prosthetic lens Hx of cholecystectomy S/P AAA (abdominal aortic aneurysm) repair S/P CABG (coronary artery bypass graft) Social History Social History Smoking packs per day: 1 Smoking cigarettes per day: 20.0 Years smoked: 50 Smoking pack-years: 50.00 Smoking status: Former smoker Tobacco type: cigarettes Second hand tobacco smoke exposure: Yes Smoking end date: 11/12/99 Additional smoking assessment comments: pt unsure when he quit smoking, but knows it has been over 20 years. Alcohol intake: current Drinks per week: 1 Alcohol use details: social Substance use: never Substance use type: does not use Lack of Transportation: No Lack of Food: Never True Current Housing: I Have Housing Concerned About Future Housing: No Difficulty Paying Gas/Electric Bills: No Difficulty Paying for Meds: No Currently Unemployed: No Education: High School Diploma/GED Difficulty w/ Childcare or Family Care: No Living arrangements: with family Gender identity (if verbalized by the patient): Male Spiritual care concerns: No Exam Narrative: GENERAL: Awake, alert HEAD: Normocephali
[2022-12-05 11:39] LABS: Basophils Percent Auto 0.2 % (0.2-1.2); Eosinophils Percent Auto 0.1 % (0-4.4); Hematocrit 42.6 % (42.0-52.0); Immature Granulocyte Absolute 0.05 K/mm3 (0.00-0.031); Immature Granulocyte Percent A 0.4 % (0-0.5); Immature Platelet Fraction Pct 2.5 % (0.9-11.2); Lymphocytes Absolute Auto 1.05 K/mm3 (0.9-3.2); Lymphocytes Percent Auto 8.5 % (18.3-44.2); Mean Corpuscular HGB Conc 32.9 g/dl (32-36); Mean Corpuscular Hemoglobin 35.1 pg (26-34); Mean Corpuscular Volume 106.8 fl (80-100); Mean Platelet Volume 10.2 fl (7.4-10.4); Monocytes Absolute Auto 1.4 K/mm3 (0.1-0.6); Monocytes Percent Auto 11.6 % (2.6-8.5); Neutrophils Absolute Auto 9.8 K/mm3 (1.3-6.7); Neutrophils Percent Auto 79.2 % (45.5-73.1); Platelet Count Result 154 k/mm3 (150-375); Red Blood Count 3.99 M/mm3 (4.6-6.20); Red Cell Distribution Width 13.2 % (11.5-14.5); White Blood Count 12.4 K/mm3 (4.5-10.0)
[2022-12-05 11:54] LABS: Alanine Aminotransferase 20 U/L (6-50); Alkaline Phosphatase 69 U/L (38-126); Anion Gap 4 mmol/L (8-16); Aspartate Amino Transferase 28 U/L (17-59); Blood Urea Nitrogen 25 mg/dL (9-20); Calcium 9.2 mg/dL (8.4-10.2); Carbon Dioxide 34 mmol/L (22-30); Chloride 103 mmol/L (98-107); Estimated Glomerular Filt Rate > 60; Glucose 108 mg/dL (65-110); Potassium 5.2 mmol/L (3.4-5.0); Sodium 141 mmol/L (137-145)
[2022-12-05 12:04] LABS: Creatine Kinase 63 U/L (55-170)
[2022-12-05 12:16] LABS: Troponin I 0.018 ng/mL (0.000-0.034)
[2022-12-05 12:37] LABS: Influenza A QL RT-PCR Negative (Negative); Influenza B QL RT-PCR Negative (Negative); RSV RNA, RT-PCR Negative (Negative); SARS-CoV-2 RNA PCR Negative (Negative)
[2022-12-05 12:55] LABS: Appearance Urine Clear (Clear); Bacteria Urine None Seen /hpf; Bilirubin Urine Negative (Negative); Color Urine Yellow (Yellow); Glucose Urine UA Negative (Negative); Ketones Urine 1+ mg/dL (Negative); Leukocyte Esterase Ur Trace LEU/UL (Negative); Need Manual Microscopic Reviewed; Nitrate Urine Negative (Negative); Protein Urine Trace mg/dL (Negative); Specific Grav Ur 1.024 (1.001-1.035); Squamous Epithelial Cell Urine Occasional /hpf (Few); WBC Urine 0-5 /hpf
[2022-12-05] MEDS: SODIUM CHLORIDE 0.9% IV 1,000 ML 999 ML IV CONT (12:57)
[2022-12-05 13:02] LABS: Add Urine Microscopic? YES
[2022-12-05 14:17] VITALS: BP 133/76; RESP 18; O2SAT 95
[2022-12-05 14:32] VITALS: BP 138/72; PULSE 69; RESP 16; TEMP 36.3; O2SAT 98
--- NOTE | 2022-12-05 15:30 | PM.IMHP ---
H&P: HPI History of Present Illness Date/Time: 12/05/22 15:30 Chief Complaint: Weakness. Narrative: This is a 72-year-old male with dementia, congestive heart failure, coronary artery disease, paroxysmal atrial flutter on chronic anticoagulation, chronic obstructive pulmonary disease, hyperlipidemia, and benign prostatic hyperplasia who presented to the emergency department via EMS from home for evaluation of weakness. The patient is not a reliable historian due to his underlying dementia and thus some of the following history is supplemented via a review of his electronic medical records as well as discussions with his and daughter. He was recently hospitalized at the [facility] on 11/23/2022 with generalized weakness, hypotension, and bradycardia. It was felt that his symptoms were related to dehydration as he improved with fluids. He walks with what sounds like a bit of a shuffling gait but he was evaluated by PT during that hospitalization and he was reportedly able to walk without assistance. He has been doing okay since discharge until this morning when he was unable to get himself out of bed, even with help from his . Apparently he has recurring episodes where ?it is almost like he is paralyzed? and this seems to occur once or twice a month but has been getting more frequent. Thus far no answers have been given and it has been attributed to his dementia. is having difficulties caring for him at home when he has these episode and she is wondering if perhaps he may need to be placed into a jail facility. It is getting to the point where he is not always able to make it to the bathroom. He is able to feed himself and he will on occasion cough with eating or drinking but that is very rare. Occasionally he has mild tremors when bringing the utensils to his mouth but no significant shakes. At the time my evaluation he does have a mild cough which is nonproductive. Family members had COVID on Easter but he apparently never contracted that. At the time my evaluation he is resting comfortably and has no specific complaints. In the ED his vital signs were stable. Pertinent labs included WBC count of 12.4, MCV 106.8, sodium 141, potassium 5.2, BUN 25, creatinine 1.00, CK 63. Brain CT showed no acute intracranial process and chest x-ray showed a small left pleural effusion with minimal left basilar airspace opacity, likely atelectasis. Review of Systems Review of Systems: Unable to obtained accurately given his dementia. [facility] Past Medical History Medical History Abdominal aortic aneurysm Status post repair. Alzheimer disease Anxiety and depression Benign prostatic hyperplasia Chronic anticoagulation Chronic obstructive pulmonary disease Coronary artery disease Lesion of pancreas Mixed hyperlipidemia Obstructive sleep apnea Intolerant to PAP therapy. Paroxysmal atrial flutter Surgical History Surgical History (Updated 12/05/22 @ 14:36 by Angie Martin PA-C) History of abdominal aortic aneurysm repair History of cataract extraction with lens replacement History of cholecystectomy History of coronary artery bypass graft Family History Family History Sibling Cancer Anxiety Mother Anxiety Social History Social History (Updated 12/05/22 @ 20:37 by Angie Martin PA-C) Social History: Surrogate medical decision maker: Ramya Martinez (spouse) or Camelia Duarte (daughter). Code status: Full code. Smoking packs per day: 1 Smoking cigarettes per day: 20.0 Years smoked: 50 Smoking pack-years: 50.00 Smoking status: Former smoker Tobacco type: cigarettes Second hand tobacco smoke exposure: Yes Smoking end date: 11/12/99 Alcohol intake: never Drinks per week: 1 Alcohol use details: Social alcohol use in moderation. Substance use: never Substance use
[2022-12-05 16:10] VITALS: BMI 26.8
--- NOTE | 2022-12-05 16:19 | ADMGEN ---
This patient, David Martinez Sr., was admitted to [facility] Surg Room 325-02. Patient/family oriented to hospital policies and general routines including ID bracelet, bed and alarms, visiting hours, pain management, procedures, bathroom and other care routines, personal items, smoking policy, room service/diet, and visiting hours. Information on how to activate the Rapid Response Team has been discussed. Patient/Family are encouraged to report perceived risks to care and to ask questions if they do not understand what they are told or what they should do. Report from [place].
[2022-12-05 20:59] VITALS: PULSE 57; O2SAT 93
[2022-12-05 21:18] VITALS: BP 141/79; PULSE 68; RESP 20; TEMP 36.7; O2SAT 97
[2022-12-05 21:49] LABS: Potassium 4.7 mmol/L (3.4-5.0)
[2022-12-05] MEDS: LACTATED RINGERS 1,000 ML 100 ML IV CONT (21:55)
[2022-12-05 22:58] LABS: Folic Acid 11.7 ng/mL (2.76->20); Iron 27 ug/dL (49-181)
[2022-12-05 23:07] LABS: Percent Iron Saturation 11 % (20-50)
[2022-12-06 05:36] VITALS: BP 150/77; PULSE 61; RESP 16; TEMP 36.3; O2SAT 97
[2022-12-06 06:16] LABS: Hematocrit 37.7 % (42.0-52.0); Immature Platelet Fraction Pct 3.1 % (0.9-11.2); Mean Corpuscular HGB Conc 31.8 g/dl (32-36); Mean Corpuscular Volume 106.8 fl (80-100); Mean Platelet Volume 10.6 fl (7.4-10.4); Platelet Count Result 122 k/mm3 (150-375); Red Blood Count 3.53 M/mm3 (4.6-6.20); Red Cell Distribution Width 13.2 % (11.5-14.5); White Blood Count 8.1 K/mm3 (4.5-10.0)
[2022-12-06 06:27] LABS: Anion Gap 0 mmol/L (8-16); Blood Urea Nitrogen 24 mg/dL (9-20); Calcium 8.2 mg/dL (8.4-10.2); Carbon Dioxide 34 mmol/L (22-30); Chloride 104 mmol/L (98-107); Estimated CRCL calculation 68 ml/min; Estimated Glomerular Filt Rate > 60; Glucose 91 mg/dL (65-110); Potassium 4.8 mmol/L (3.4-5.0); Sodium 138 mmol/L (137-145)
[2022-12-06 08:00] VITALS: O2SAT 92
[2022-12-06] MEDS: APIXABAN 5 MG TABLET PO ×2 (10:04→17:11)
[2022-12-06] MEDS: SERTRALINE HCL 25 MG TABLET 75 MG PO (10:04)
[2022-12-06] MEDS: MEMANTINE 10 MG TABLET PO ×2 (10:04→17:12)
[2022-12-06] MEDS: DIVALPROEX SODIUM DR 250 MG TABEC 500 MG PO ×3 (10:04→17:11)
[2022-12-06] MEDS: TAMSULOSIN HCL 0.4 MG CAPSULE PO (10:04)
[2022-12-06] MEDS: ATORVASTATIN 20 MG TABLET PO (10:04)
[2022-12-06] MEDS: CHOLECALCIFEROL 1,000 UNITS TABLET 2000 UNITS PO (10:05)
[2022-12-06] MEDS: ASPIRIN 81 MG ENTERIC TABLET PO (10:05)
--- NOTE | 2022-12-06 10:19 | WPDNEURCNPN ---
Assessment and Plan Assessment and plan (1) Generalized weakness: Code(s): R53.1 - Weakness Status: Acute (2) Alzheimer disease: Code(s): G30.9 - Alzheimer's disease, unspecified; F02.80 - Dementia in other diseases classified elsewhere, unspecified severity, without behavioral disturbance, psychotic disturbance, mood disturbance, and anxiety Status: Acute (3) Hyperkalemia: Code(s): E87.5 - Hyperkalemia Status: Acute (4) Gait instability: Code(s): R26.81 - Unsteadiness on feet Status: Acute Plan Mr. Martinez is a 72 year old male with a history of dementia presenting due to episodes of generalized weakness. He is having paroxysmal spells described as decreased awareness, with inability to move extremities, that can last several hours, and is at times associated with incontinence. Suspect that this may be progression of his dementia, as has mentioned that overall cognitively, there has been a decline. Suspicion for seizures or genetic conditions such as periodic paralysis is lower, but still a consideration. - Obtain MRI brain w/o contrast - Obtain routine EEG - Will send periodic paralysis panel Consult date: 12/06/22 Reason for consult: Episodic weakness HPI: David Martinez Sr. is a 72 year old male with a history of dementia, bipolar disorder, CAD, CHF, atrial flutter (on Eliquis), COPD, HLD presenting due to episodes of weakness. Patient initially was admitted about two weeks ago at [facility] after having an episode of weakness. He was working in the yard when he felt like his legs gave out. When he initially arrived to [facility] ED, he was hypotensive. He was evaluated by physical therapy. His strength was normal so he was discharged. Patient did fine after discharge until yesterday morning, he was unable to get himself out of bed. reports that patient has similar episodes several times a week. is having difficulty caring for him during these episodes of weakness. It has gotten to the point where he is unable to make it to the bathroom. Patient denies any complaints. In the ED, labs were significant for mild elevation in potassium. CT head was unrevealing. at bedside this morning and was able to give more information regarding the episodes. She reports these episodes started happening in April 2022. She reports he has a blank expression on his face, incoherent speech (can't answer questions or communicate), and has weakness of the entire body. She says that these episodes last for several hours and then he regains his strength. At times he has been incontinence with the spells, but is also having more frequent urinary incontinence in general. His mental status has gotten worse, in August his found him wandering outside. Patient follows with Dr. Burnett for his dementia and is on Aricept 10mg daily and Namenda 10mg BID. Patient's family has also raised concern regarding Parkinson's since patient has tremor and shuffling gait. Review of Systems Constitutional: Constitutional: Reports weakness Eyes: Eyes: Reports no additional eye complaints ENT: Reports system reviewed and no additional complaints, except as documented Cardiovascular: Cardiovascular: Reports no additional cardiovascular complaints Respiratory: Respiratory: Reports no additional respiratory complaints Gastrointestinal: Gastrointestinal: Reports no additional gastrointestinal complaints Genitourinary: Genitourinary: Reports urinary incontinence Musculoskeletal: Musculoskeletal: Reports no additional musculoskeletal complaints Integumentary/Breasts: Skin/Breast: Reports system reviewed and no additional complaints, except as docu Neurologic: Reports abnormal gait and Reports confusion Psychiatric: Psychiatric: Reports anxiety PMFSH Past Medical History Medical History Abdominal aortic aneurysm Status post repair. Alzhe
[2022-12-06] MEDS: busPIRone HCL 5 MG TABLET 15 MG PO ×2 (12:27→17:11)
[2022-12-06 14:00] VITALS: BP 100/60; PULSE 67; RESP 16; TEMP 36.7; O2SAT 93
--- NOTE | 2022-12-06 15:14 | PM.IMPN ---
Progress Note: A&P Assessment and Plan (1) Dehydration: Code(s): E86.0 - Dehydration Status: Acute (2) Generalized weakness: Code(s): R53.1 - Weakness Status: Acute (3) Gait instability: Code(s): R26.81 - Unsteadiness on feet Status: Acute (4) Cognitive impairment: Code(s): R41.89 - Other symptoms and signs involving cognitive functions and awareness Status: Acute Plan ?72-year-old male with dementia, congestive heart failure, coronary artery disease, paroxysmal atrial flutter on chronic anticoagulation, chronic obstructive pulmonary disease, hyperlipidemia, and benign prostatic hyperplasia who presented to the emergency department via EMS from home for evaluation of weakness.? 1)Generalized weakness with underlying Dementia: Appreciate Neurology Help Plan for EEG Plan for MRI brain Periodic paralysis panel as per Neurology c/w Donepezil Namenda c/w Divalproate Hyperkalemia has resolved 2)Iron Deficient: Start on iron supplement 3)Parosysmal Afib: c/w Eliquis 4)DVT ppx: on Eliquis 5)Code:Full 6)Dispo:pending improvement Time Spent With Patient Time with patient: 15 - 25 minutes Subjective Date/time seen: 12/06/22 15:14 Interval history: no acute events overnight Review of Systems Review of Systems: All systems reviewed & are unremarkable except as noted in HPI and below Exam Narrative: General: Well-developed, nontoxic-appearing male in the semi-Ybarra position in bed in no acute distress. Weight: 80 kg. BMI: 26.8. HEENT: Normocephalic, atraumatic. Slightly mask facies. PERRL, EOMI. Sclera anicteric. Oral mucosa moist. Neck: Supple. Respiratory: Lungs are clear to auscultation bilaterally. Cardiovascular: Regular rate and rhythm with S1-S2. Gastrointestinal: Abdomen is soft, nontender, and nondistended with positive bowel sounds. Skin: Warm and dry. Extremities: No cyanosis, clubbing, or edema. Radial and pedal pulses intact. Peripheral pulses intact. Neurological: Alert to name and age. Cranial nerves 2-12 are grossly intact. Speech is clear though he only spoke a few words. No facial asymmetry. He did not participate much in the neurologic exam. 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 He attempted to raise his legs off the bed but was unable to do so. He let them fall to gravity when I would raise them for him. He does have good muscle tone. No clonus. No tremors or bradykinesia. Negative Babinski. Psychiatric: Pleasantly confused and cooperative. Objective Data Vital Signs Vital Signs: Vital Signs - 24 hr 12/05/22 20:59 12/05/22 21:18 12/06/22 05:36 Temperature 98.1 F 97.4 F L Pulse Rate 57 L 68 61 Respiratory Rate 20 16 Blood Pressure 141/79 H 150/77 H Pulse Oximetry 93 97 97 Oxygen Delivery Nasal Cannula Oxygen Flow Rate 1 12/06/22 08:00 12/06/22 10:17 12/06/22 12:53 Temperature Pulse Rate Respiratory Rate Blood Pressure Pulse Oximetry 92 Oxygen Delivery Room Air Room Air Room Air Oxygen Flow Rate 12/06/22 14:00 Temperature 98.1 F Pulse Rate 67 Respiratory Rate 16 Blood Pressure 100/60 Pulse Oximetry 93 Oxygen Delivery Oxygen Flow Rate Intake/Output Intake/Output: Intake & Output 12/03/22 12/04/22 12/05/22 12/06/22 23:59 23:59 23:59 23:59 Intake Total 490 360 Balance 490 360 Meds/Results Medications: Active Medications Generic Name Dose Route Start Last Admin Trade Name Freq PRN Reason Stop Dose Admin Acetaminophen 650 mg 12/05/22 20:46 Acetaminophen 325 Mg Tablet PO Q6H PRN Mild Pain (1-3) or Fever Apixaban 5 mg 12/06/22 09:20 12/06/22 10:04 Apixaban 5 Mg Tablet PO 5 mg BID JASON Administration Aspirin 81 mg 12/06/22 09:00 12/06/22 10:05 Aspirin 81 Mg Enteric Tablet PO 81 mg DAILY JASON Administration Atorvastatin Calcium 20 mg 12/06/22 09:00 12/06/22 10:04 Atorvastatin 20 Mg Tablet PO
[2022-12-06] MEDS: MELATONIN 5 MG TABLET 10 MG PO (21:01)
[2022-12-06] MEDS: traZODone HCL 50 MG TABLET PO (21:02)
[2022-12-06] MEDS: DONEPEZIL HCL 10 MG TABLET PO (21:02)
[2022-12-06] MEDS: risperiDONE 1 MG TABLET PO (21:02)
[2022-12-06 22:00] VITALS: BP 118/53; PULSE 54; RESP 22; TEMP 36.4; O2SAT 90
[2022-12-07] MEDS: ACETAMINOPHEN 325 MG TABLET 650 MG PO (03:09)
[2022-12-07 05:47] VITALS: BP 146/68; PULSE 50; RESP 18; TEMP 36.2; O2SAT 94
[2022-12-07 06:10] LABS: Basophils Percent Auto 0.4 % (0.2-1.2); Eosinophils Absolute Auto 0.1 K/mm3 (0-0.3); Eosinophils Percent Auto 0.9 % (0-4.4); Hematocrit 37.2 % (42.0-52.0); Hemoglobin 11.9 g/dL (14.0-18.0); Immature Granulocyte Absolute 0.03 K/mm3 (0.00-0.031); Immature Granulocyte Percent A 0.4 % (0-0.5); Lymphocytes Absolute Auto 1.37 K/mm3 (0.9-3.2); Mean Corpuscular Hemoglobin 34.1 pg (26-34); Mean Corpuscular Volume 106.6 fl (80-100); Mean Platelet Volume 10.6 fl (7.4-10.4); Monocytes Absolute Auto 1.1 K/mm3 (0.1-0.6); Monocytes Percent Auto 14.4 % (2.6-8.5); Neutrophils Percent Auto 65.9 % (45.5-73.1); Platelet Count Result 124 k/mm3 (150-375); Red Blood Count 3.49 M/mm3 (4.6-6.20); Red Cell Distribution Width 13.1 % (11.5-14.5); White Blood Count 7.6 K/mm3 (4.5-10.0)
[2022-12-07 06:22] LABS: Anion Gap 2 mmol/L (8-16); Blood Urea Nitrogen 26 mg/dL (9-20); Calcium 8.5 mg/dL (8.4-10.2); Carbon Dioxide 33 mmol/L (22-30); Chloride 104 mmol/L (98-107); Estimated CRCL calculation 61 ml/min; Estimated Glomerular Filt Rate > 60; Glucose 86 mg/dL (65-110); Potassium 4.5 mmol/L (3.4-5.0); Sodium 139 mmol/L (137-145)
[2022-12-07] MEDS: ASPIRIN 81 MG ENTERIC TABLET PO (09:28)
[2022-12-07] MEDS: POLYSACCHARIDE IRON COMPLEX 150 MG CAPSULE PO (09:28)
[2022-12-07] MEDS: busPIRone HCL 5 MG TABLET 15 MG PO ×3 (09:29→16:52)
[2022-12-07] MEDS: APIXABAN 5 MG TABLET PO ×2 (09:29→16:52)
[2022-12-07] MEDS: SERTRALINE HCL 25 MG TABLET 75 MG PO (09:29)
[2022-12-07] MEDS: TAMSULOSIN HCL 0.4 MG CAPSULE PO (09:29)
[2022-12-07] MEDS: ATORVASTATIN 20 MG TABLET PO (09:29)
[2022-12-07] MEDS: DIVALPROEX SODIUM DR 250 MG TABEC 500 MG PO ×3 (09:30→16:52)
[2022-12-07] MEDS: MEMANTINE 10 MG TABLET PO ×2 (09:30→16:52)
[2022-12-07] MEDS: CHOLECALCIFEROL 1,000 UNITS TABLET 2000 UNITS PO (09:30)
--- NOTE | 2022-12-07 11:12 | P.NEURO_ITS ---
Neurology EEG Report General Information Date of Study: 12/07/22 TEST Routine EEG DIAGNOSIS Episodes of confusion and weakness CONDITION OF RECORDING Awake, drowsy, asleep EEG NUMBER [id number] CLINICAL HISTORY Patient has a history of dementia. For the past few months, he is having episodes of unresponsiveness with falling and weakness of the extremities. He had a prior routine EEG done in January 2022 that was normal. EEG DESCRIPTION During the awake state with eyes closed the background consists of 8 Hz posterior dominant rhythm which attenuates appropriately with eye opening. The recording is continuous. There is a well developed anterior-posterior gradient. No significant asymmetries of background activities are noted. With drowsiness there is waxing and waning of the dominant rhythm with eventual replacement by a mixture of beta, alpha, and theta activity. As the patient enters stage II sleep, symmetrical spindles and K-complexes are present. Arousal is unremarkable. There are no epileptiform discharges or seizures during this r ecording. Hyperventilation and photic stimulation were not performed. IMPRESSION This is a normal routine EEG recorded in awake and asleep states. There are no electrographic seizures identified, nor are there any epileptiform discharges. Please note that a normal EEG cannot exclude a seizure disorder. Clinical correlation is recommended.
--- NOTE | 2022-12-07 12:13 | PM.IMPN ---
Progress Note: A&P Assessment and Plan (1) Dehydration: Code(s): E86.0 - Dehydration Status: Acute (2) Generalized weakness: Code(s): R53.1 - Weakness Status: Acute (3) Gait instability: Code(s): R26.81 - Unsteadiness on feet Status: Acute (4) Cognitive impairment: Code(s): R41.89 - Other symptoms and signs involving cognitive functions and awareness Status: Acute Plan ?72-year-old male with dementia, congestive heart failure, coronary artery disease, paroxysmal atrial flutter on chronic anticoagulation, chronic obstructive pulmonary disease, hyperlipidemia, and benign prostatic hyperplasia who presented to the emergency department via EMS from home for evaluation of weakness.? 1)Generalized weakness with underlying Dementia: Appreciate Neurology Help EEG was done, read as unremarkable Plan for MRI brain today Periodic paralysis panel as per Neurology c/w Donepezil, Namenda c/w Divalproate Hyperkalemia has resolved PT/OT 2)Iron Deficient: c/w iron supplement 3)Parosysmal Afib: c/w Eliquis Seems to have bradycardia but that is chronic 4)Urinary Incontinence: ?BPH Already on flomax Will get Urology consult 5)DVT ppx: on Eliquis 6)Code:Full 7)Dispo:will need placement Time Spent With Patient Time with patient: 15 - 25 minutes Subjective Date/time seen: 12/07/22 12:13 Interval history: no acute events overnight Review of Systems Review of Systems: All systems reviewed & are unremarkable except as noted in HPI and below Exam Narrative: General: Well-developed, nontoxic-appearing male in the semi-Ybarra position in bed in no acute distress. Weight: 80 kg. BMI: 26.8. HEENT: Normocephalic, atraumatic. Slightly mask facies. PERRL, EOMI. Sclera anicteric. Oral mucosa moist. Neck: Supple. Respiratory: Lungs are clear to auscultation bilaterally. Cardiovascular: Regular rate and rhythm with S1-S2. Gastrointestinal: Abdomen is soft, nontender, and nondistended with positive bowel sounds. Skin: Warm and dry. Extremities: No cyanosis, clubbing, or edema. Radial and pedal pulses intact. Peripheral pulses intact. Neurological: Alert to name and age. Cranial nerves 2-12 are grossly intact. Speech is clear though he only spoke a few words. No facial asymmetry. He did not participate much in the neurologic exam. 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 He attempted to raise his legs off the bed but was unable to do so. He let them fall to gravity when I would raise them for him. He does have good muscle tone. No clonus. No tremors or bradykinesia. Negative Babinski. Psychiatric: Pleasantly confused and cooperative. Objective Data Vital Signs Vital Signs: Vital Signs - 24 hr 12/06/22 12:53 12/06/22 14:00 12/06/22 22:00 Temperature 98.1 F 97.5 F L Pulse Rate 67 54 L Respiratory Rate 16 22 H Blood Pressure 100/60 118/53 L Pulse Oximetry 93 90 Oxygen Delivery Room Air 12/07/22 05:47 Temperature 97.2 F L Pulse Rate 50 L Respiratory Rate 18 Blood Pressure 146/68 H Pulse Oximetry 94 Oxygen Delivery Intake/Output Intake/Output: Intake & Output 12/04/22 12/05/22 12/06/22 12/07/22 23:59 23:59 23:59 23:59 Intake Total 490 1340 240 Balance 490 1340 240 Meds/Results Medications: Active Medications Generic Name Dose Route Start Last Admin Trade Name Freq PRN Reason Stop Dose Admin Acetaminophen 650 mg 12/05/22 20:46 12/07/22 03:09 Acetaminophen 325 Mg Tablet PO 650 mg Q6H PRN Administration Mild Pain (1-3) or Fever Apixaban 5 mg 12/06/22 09:20 12/07/22 09:29 Apixaban 5 Mg Tablet PO 5 mg BID JASON Administration Aspirin 81 mg 12/06/22 09:00 12/07/22 09:28 Aspirin 81 Mg Enteric Tablet PO 81 mg DAILY JASON Administration Atorvastatin Calcium 20 mg 12/06/22 09:00 12/07/22 09:29 Atorvastatin 20 Mg Tablet PO 20 mg DAILY JASON Administration Buspirone HCl
[2022-12-07 14:00] VITALS: BP 100/58; PULSE 57; RESP 16; TEMP 36.3; O2SAT 97
[2022-12-07] MEDS: risperiDONE 1 MG TABLET PO (20:02)
[2022-12-07] MEDS: traZODone HCL 50 MG TABLET PO (20:02)
[2022-12-07] MEDS: DONEPEZIL HCL 10 MG TABLET PO (20:02)
[2022-12-07] MEDS: MELATONIN 5 MG TABLET 10 MG PO (20:02)
[2022-12-07 21:20] VITALS: BP 109/59; PULSE 54; RESP 16; TEMP 36.7; O2SAT 92
[2022-12-08 05:39] VITALS: BP 147/77; PULSE 65; RESP 16; TEMP 36.4; O2SAT 92
[2022-12-08 06:47] LABS: Basophils Absolute Auto 0.1 K/mm3 (0.0-0.1); Basophils Percent Auto 0.7 % (0.2-1.2); Eosinophils Absolute Auto 0.1 K/mm3 (0-0.3); Eosinophils Percent Auto 1.5 % (0-4.4); Hematocrit 38.6 % (42.0-52.0); Hemoglobin 12.3 g/dL (14.0-18.0); Immature Granulocyte Absolute 0.03 K/mm3 (0.00-0.031); Immature Granulocyte Percent A 0.4 % (0-0.5); Lymphocytes Percent Auto 20.2 % (18.3-44.2); Mean Corpuscular HGB Conc 31.9 g/dl (32-36); Mean Corpuscular Hemoglobin 34.2 pg (26-34); Mean Corpuscular Volume 107.2 fl (80-100); Mean Platelet Volume 10.4 fl (7.4-10.4); Monocytes Absolute Auto 0.9 K/mm3 (0.1-0.6); Monocytes Percent Auto 11.7 % (2.6-8.5); Neutrophils Absolute Auto 4.9 K/mm3 (1.3-6.7); Neutrophils Percent Auto 65.5 % (45.5-73.1); Platelet Count Result 131 k/mm3 (150-375); Red Cell Distribution Width 12.9 % (11.5-14.5); White Blood Count 7.4 K/mm3 (4.5-10.0)
[2022-12-08 06:59] LABS: Anion Gap 0 mmol/L (8-16); Blood Urea Nitrogen 32 mg/dL (9-20); Calcium 8.3 mg/dL (8.4-10.2); Carbon Dioxide 37 mmol/L (22-30); Chloride 104 mmol/L (98-107); Estimated CRCL calculation 61 ml/min; Estimated Glomerular Filt Rate > 60; Glucose 86 mg/dL (65-110); Potassium 4.6 mmol/L (3.4-5.0); Sodium 141 mmol/L (137-145)
--- NOTE | 2022-12-08 08:31 | WPDURCON ---
Assessment and Plan Assessment and plan (1) BPH (benign prostatic hyperplasia): Code(s): N40.0 - Benign prostatic hyperplasia without lower urinary tract symptoms Status: Acute Assessment and Plan: Retention ruled out with PVR of 44cc. Continue Tamsulosin. (2) Incontinence without sensory awareness: Code(s): N39.42 - Incontinence without sensory awareness Status: Acute Assessment and Plan: Ok to continue use of diapers. We will start Myrbetriq, but patient will likely continue to have incontinence d/t decline with Parkinson's and inability of awareness to urinate d/t declining dementia. No further evaluation needed. Urology Consult Note HPI Date Seen: 12/07/22 Time Seen: 13:00 Requesting Physician: Sanju Jackson MD Primary Care Provider: Juan Ramon Lyman DO Consult Narrative Reason for consult: Urinary Incontinence Narrative: David Martinez Sr. is a 72 year old male who presented to the ER for deconditioning and weakness. His states he has been in a paralyzed state, at home. He has dementia and Parkinson's disease which have progressed to a state that she is no longer able to care for him at home. He is having worsening urinary incontinence which is bothersome to them at home, although he wears a diapers. The patient states that he wakes up wet at night and he has diaper changes throughout the day. He is a poor historian, but denies difficulty urinating, hematuria or fever. His bladder scan was 44cc. UA shows microhematuria and some leukocytes, no culture was done. Urine creatinine is 0.90 and WBC is within normal limits. All medical history was obtained from the chart and his nurse. Review of Systems Cardiovascular: Cardiovascular: Denies chest pain Respiratory: Respiratory: Reports no additional respiratory complaints Gastrointestinal: Gastrointestinal: Denies abdominal pain, Denies nausea and Denies vomiting Genitourinary: Genitourinary: Denies hematuria, Denies dysuria, Denies flank pain, Denies nocturia, Denies urinary frequency, Denies urinary hesitancy, Reports urinary incontinence and Denies urinary urgency [facility] Past Medical History Medical History Abdominal aortic aneurysm Status post repair. Alzheimer disease Anxiety and depression Benign prostatic hyperplasia Chronic anticoagulation Chronic obstructive pulmonary disease Coronary artery disease Lesion of pancreas Mixed hyperlipidemia Obstructive sleep apnea Intolerant to PAP therapy. Paroxysmal atrial flutter Surgical History Surgical History History of abdominal aortic aneurysm repair History of cataract extraction with lens replacement History of cholecystectomy History of coronary artery bypass graft Family History Family History Sibling Cancer Anxiety Mother Anxiety Social History Social History Social History: Surrogate medical decision maker: Ramya Martinez (spouse) or Camelia Duarte (daughter). Code status: Full code. Smoking packs per day: 1 Smoking cigarettes per day: 20.0 Years smoked: 50 Smoking pack-years: 50.00 Smoking status: Former smoker Tobacco type: cigarettes Second hand tobacco smoke exposure: Yes Smoking end date: 11/12/99 Alcohol intake: never Drinks per week: 1 Alcohol use details: Social alcohol use in moderation. Substance use: never Substance use type: does not use Lack of Transportation: No Lack of Food: Never True Current Housing: I Have Housing Concerned About Future Housing: No Difficulty Paying Gas/Electric Bills: No Difficulty Paying for Meds: No Currently Unemployed: No Education: Don't Know Difficulty w/ Childcare or Family Care: No Living arrangements: with family Additiona
[2022-12-08] MEDS: MIRABEGRON 25 MG ER TABLET PO (09:50)
[2022-12-08] MEDS: busPIRone HCL 5 MG TABLET 15 MG PO ×2 (09:50→12:30)
[2022-12-08] MEDS: MEMANTINE 10 MG TABLET PO (09:50)
[2022-12-08] MEDS: ASPIRIN 81 MG ENTERIC TABLET PO (09:50)
[2022-12-08] MEDS: ATORVASTATIN 20 MG TABLET PO (09:50)
[2022-12-08] MEDS: POLYSACCHARIDE IRON COMPLEX 150 MG CAPSULE PO (09:50)
[2022-12-08] MEDS: DIVALPROEX SODIUM DR 250 MG TABEC 500 MG PO ×2 (09:51→12:30)
[2022-12-08] MEDS: APIXABAN 5 MG TABLET PO (09:51)
[2022-12-08] MEDS: CHOLECALCIFEROL 1,000 UNITS TABLET 2000 UNITS PO (09:51)
[2022-12-08] MEDS: SERTRALINE HCL 25 MG TABLET 75 MG PO (09:51)
[2022-12-08] MEDS: TAMSULOSIN HCL 0.4 MG CAPSULE PO (09:51)
--- NOTE | 2022-12-08 09:56 | PM.DS ---
DS: Admitting Diagnosis Discharge Date 12/08/2022 Admitting Diagnosis Dehydration Generalized weakness DS: Discharge Diagnosis Discharge Diagnosis (1) Dehydration: Code(s): E86.0 - Dehydration Status: Acute (2) Generalized weakness: Code(s): R53.1 - Weakness Status: Acute (3) Gait instability: Code(s): R26.81 - Unsteadiness on feet Status: Acute (4) Cognitive impairment: Code(s): R41.89 - Other symptoms and signs involving cognitive functions and awareness Status: Acute Plan ?72-year-old male with dementia, congestive heart failure, coronary artery disease, paroxysmal atrial flutter on chronic anticoagulation, chronic obstructive pulmonary disease, hyperlipidemia, and benign prostatic hyperplasia who presented to the emergency department via EMS from home for evaluation of weakness.? 1)Generalized weakness with underlying Dementia: Appreciate Neurology Help EEG was done, read as unremarkable Plan for MRI brain today Periodic paralysis panel as per Neurology c/w Donepezil, Namenda c/w Divalproate Hyperkalemia has resolved PT/OT 2)Iron Deficient: c/w iron supplement 3)Parosysmal Afib: c/w Eliquis Seems to have bradycardia but that is chronic 4)Urinary Incontinence: ?BPH Already on flomax Will get Urology consult 5)DVT ppx: on Eliquis 6)Code:Full 7)Dispo:will need placement DS: Summary Hospital Course Hospital Course: Uneventful This is a 72-year-old male with dementia, congestive heart failure, coronary artery disease, paroxysmal atrial flutter on chronic anticoagulation, chronic obstructive pulmonary disease, hyperlipidemia, and benign prostatic hyperplasia who presented to the emergency department via EMS from home for evaluation of weakness. The patient is not a reliable historian due to his underlying dementia and thus some of the following history is supplemented via a review of his electronic medical records as well as discussions with his and daughter. He was recently hospitalized at the [facility] on 11/23/2022 with generalized weakness, hypotension, and bradycardia. It was felt that his symptoms were related to dehydration as he improved with fluids. He walks with what sounds like a bit of a shuffling gait but he was evaluated by PT during that hospitalization and he was reportedly able to walk without assistance. He has been doing okay since discharge until this morning when he was unable to get himself out of bed, even with help from his . Apparently he has recurring episodes where ?it is almost like he is paralyzed? and this seems to occur once or twice a month but has been getting more frequent. Thus far no answers have been given and it has been attributed to his dementia. is having difficulties caring for him at home when he has these episode and she is wondering if perhaps he may need to be placed into a residential facility. It is getting to the point where he is not always able to make it to the bathroom. He is able to feed himself and he will on occasion cough with eating or drinking but that is very rare. Occasionally he has mild tremors when bringing the utensils to his mouth but no significant shakes. At the time my evaluation he does have a mild cough which is nonproductive. Family members had COVID on Easter but he apparently never contracted that. At the time my evaluation he is resting comfortably and has no specific complaints. In the ED his vital signs were stable. Pertinent labs included WBC count of 12.4, MCV 106.8, sodium 141, potassium 5.2, BUN 25, creatinine 1.00, CK 63. Brain CT showed no acute intracranial process and chest x-ray showed a small left pleural effusion with minimal left basilar airspace opacity, likely atelectasis. Status at Discharge Cognitive/behavioral status at discharge: Stable Time Spent with Patient Time attestation: Total time spent providing and/or coordinating discharge service
--- NOTE | 2022-12-08 11:30 | PCOTNOTE ---
Attempted to see Patient at this time. Patient eating. Will check back this afternoon.
[2022-12-08 14:00] VITALS: BP 96/55; PULSE 62; RESP 16; TEMP 36.1; O2SAT 96
--- NOTE | 2022-12-08 14:57 | PC.NURSE ---
Called and spoke with DRAKE Abraham at [facility] at 1140. Gave her report on the patient and faxed her a copy of the discharge instructions/teaching. Will also fax over a copy of the covid swab. Attempted to call at [phone] and was unable to reach her so i left a voicemail.
[2022-12-08 15:01] LABS: EDCOVIDSCREEN Negative (Negative)
== END 2022-12-08 16:05 ==
LOC: ANHED 13:09 → ANH3MEDSUR 16:33
PROVIDERS: Internal Medicine; Physician Assistant; Admitting Provider Internal Medicine; Emergency Provider Emergency Medicine; PCP Family Medicine; Visit Provider Internal Medicine
DX: E86.0 Dehydration (principal); R53.1 Weakness; R26.81 Unsteadiness on feet; R41.89 Other symptoms and signs involving cognitive functions and awareness; I95.9 Hypotension, unspecified; R00.1 Bradycardia, unspecified; G20 Parkinson's disease; F02.80 Dementia in other diseases classified elsewhere, unspecified severity, without behavioral disturbance, psychotic disturbance, mood disturbance, and anxiety; Z20.822 Contact with and (suspected) exposure to COVID-19; M79.10 Myalgia, unspecified site; I50.9 Heart failure, unspecified; J44.9 Chronic obstructive pulmonary disease, unspecified; E78.5 Hyperlipidemia, unspecified; G47.33 Obstructive sleep apnea (adult) (pediatric); D75.89 Other specified diseases of blood and blood-forming organs; I25.10 Atherosclerotic heart disease of native coronary artery without angina pectoris; R90.82 White matter disease, unspecified; E61.1 Iron deficiency; Z95.1 Presence of aortocoronary bypass graft; F41.9 Anxiety disorder, unspecified; F32.A Depression, unspecified; F10.90 Alcohol use, unspecified, uncomplicated; R94.31 Abnormal electrocardiogram [ECG] [EKG]; J90 Pleural effusion, not elsewhere classified; N39.42 Incontinence without sensory awareness; N40.0 Benign prostatic hyperplasia without lower urinary tract symptoms; I48.92 Unspecified atrial flutter; Z86.79 Personal history of other diseases of the circulatory system; Z87.891 Personal history of nicotine dependence; Z79.82 Long term (current) use of aspirin; Z79.01 Long term (current) use of anticoagulants; Z79.899 Other long term (current) drug therapy
CPT/HCPCS: 36415; 70450; 70551; 71046; 80048; 80053; 81001; 82550; 82607; 82728; 82746; 83540; 83550; 84132; 84443; 84484; 85025; 85027; 85055; 87426; 87637; 93005; 95816; 97110; 97116; 97161; 97165; 97530; 97535; 99285; A9270; C9803; G0378; J7030; J7120

== ENCOUNTER 2023-02-21 10:51 | Outpatient (CLI) | payer MEDICARE, SELFPAY ==
--- NOTE | 2023-02-21 11:07 | ECG_ITS ---
Measurements Intervals [place] Rate: 61 P: 82 ND: 151 QRS: 44 QRSD: 101 T: 67 QT: 406 QTc: 411 Interpretive Statements SINUS RHYTHM LOW QRS VOLTAGE IN PRECORDIAL LEADS BORDERLINE ST-T WAVE ABNORMALITY- DIFFUSE LEADS BASELINE ARTIFACT- I, II, III, AVR, AVL, AVF, V1-V2 BORDERLINE ECG COMPARED TO ECG 12/05/2022 11:20:20 NO SIGNIFICANT CHANGES Electronically Signed On 02-21-2023 11:39:28 CDT by Moreno Fields D.O.
[2023-02-21 11:08] LABS: Basophils Absolute Auto 0.03 K/mm3 (0.00-0.10); Basophils Percent Auto 0.5 % (0.0-1.0); Eosinophils Absolute Auto 0.09 K/mm3 (0.02-0.50); Eosinophils Percent Auto 1.4 % (1.0-6.0); Hematocrit 42.4 % (37.0-46.0); Hemoglobin 13.7 g/dL (12.4-15.3); Immature Granulocyte Absolute 0.03 K/mm3 (0.00-0.00); Immature Granulocyte Percent A 0.5 % (0.0-0.0); Lymphocytes Absolute Auto 1.63 K/mm3 (1.10-4.50); Lymphocytes Percent Auto 25.1 % (18.0-42.0); Mean Corpuscular HGB Conc 32.3 g/dL (32.0-36.0); Mean Corpuscular Hemoglobin 34.2 pg (27.0-31.0); Mean Corpuscular Volume 105.7 fL (78.0-102.0); Mean Platelet Volume 9.6 fl (8.7-11.0); Monocytes Absolute Auto 0.83 K/mm3 (0.10-0.90); Monocytes Percent Auto 12.8 % (2.0-11.0); Neutrophils Absolute Auto 3.9 K/mm3 (1.7-7.2); Neutrophils Percent Auto 59.7 % (50.0-70.0); Platelet Count Result 123 K/mm3 (150-420); Red Blood Count 4.01 M/mm3 (4.70-6.10); Red Cell Distribution Width 12.5 % (11.6-14.4); White Blood Count 6.5 K/mm3 (4.8-10.8)
[2023-02-21 11:33] LABS: Alanine Aminotransferase 12 U/L (16-63); Albumin Level 2.8 g/dL (3.4-5.0); Alkaline Phosphatase 52 U/L (46-116); Anion Gap 3 mmol/L (8-16); Aspartate Amino Transferase 18 U/L (15-37); Bilirubin,Total 0.5 mg/dL (0.00-1.00); Blood Urea Nitrogen 26 mg/dL (7-18); Carbon Dioxide 34 mmol/L (21-32); Chloride 108 mmol/L (98-108); Estimated Glomerular Filt Rate > 60; Glucose 73 mg/dL (70-99); NT Pro B Type Natriuretic Pept 1778 pg/mL (0-125); Osmolality Calculated 303 mOsm/kg (285-295); Potassium 5.2 mmol/L (3.5-5.1); Sodium 145 mmol/L (136-145); Total Protein 6.3 g/dL (6.4-8.2); Troponin I 17.4 ng/L (0.00-60.4)
== END 2023-02-21 10:52 | disposition home or self-care (01) ==
LOC: CHSLAB 10:54
PROVIDERS: PCP Family Medicine; Visit Provider Family Medicine
DX: R53.83 Other fatigue (principal); I50.9 Heart failure, unspecified
CPT/HCPCS: 36415; 80053; 83880; 84484; 85025; 93005

== ENCOUNTER 2023-02-21 22:36 | Outpatient (NON) | payer MEDICARE, SELFPAY ==
[2023-02-21 22:46] LABS: Appearance Urine Clear (Clear); Bilirubin Urine Negative (Negative); Blood Urine Negative (Negative); Color Urine Yellow (Yellow); Glucose Urine UA Negative (Negative); Ketones Urine Negative (Negative); Leukocyte Esterase Ur Negative LEU/UL (Negative); Nitrate Urine Negative (Negative); Protein Urine Negative (Negative); Specific Grav Ur >= 1.030 (1.010-1.020); Urobilinogen Urine 0.2 mg/dL (0.2-1.0); pH Urine 5.5 (5.0-8.0)
[2023-02-21 22:48] LABS: Add Urine Microscopic? NO
== END 2023-02-21 22:37 | disposition home or self-care (01) ==
LOC: CHSLAB 22:38
PROVIDERS: Visit Provider Family Medicine
DX: N39.0 Urinary tract infection, site not specified (principal)
CPT/HCPCS: 81003

== ENCOUNTER 2023-03-04 11:17 | Emergency (ER) | payer MEDICARE, SELFPAY ==
--- NOTE | ~2023-03-04 | XR_ITS ---
XR chest 1V portable 03/04/2023 11:56 Indication: Lethargy. COPD. Procedure: AP portable chest Comparison: Comparison to multiple prior studies sequentially, with oldest reviewed study dated 09/11. Findings: Status post median sternotomy for CABG. Bibasilar atelectasis. There is atherosclerosis and ectasia of the aorta. No focal pneumonia, edema or pneumothorax. Possible small left effusion. Impression: 1: Bibasilar atelectasis. Reviewed, dictated and finalized at location A. Impression: 1: Bibasilar atelectasis.
[2023-03-04 11:20] VITALS: BP 129/81; PULSE 78; RESP 19; TEMP 36.7; O2SAT 93
[2023-03-04] MEDS: LACTATED RINGERS 1,000 ML 150 ML (11:20)
--- NOTE | 2023-03-04 11:39 | ECG_ITS ---
Measurements Intervals [place] Rate: 77 P: 53 LA: 151 QRS: 55 QRSD: 105 T: 0 QT: 368 QTc: 417 Interpretive Statements SINUS RHYTHM VENTRICULAR PREMATURE COMPLEX NONSPECIFIC ST & T-WAVE ABNORMALITY- DIFFUSE LEADS BASELINE ARTIFACT- I, II, III, AVR, AVF, V1, V3 BORDERLINE ECG COMPARED TO ECG 02/21/2023 11:23:29 NO SIGNIFICANT CHANGES Electronically Signed On 03-04-2023 16:27:59 CDT by Moreno Fields D.O.
--- NOTE | 2023-03-04 11:44 | ED.GENADULT ---
HPI - General Adult General Chief complaint: Unspecified Stated complaint: Lethargic Time Seen by Provider: 03/04/23 11:37 Related Data Home Medications Medication Instructions Recorded Confirmed aspirin 81 mg tablet,delayed 81 mg PO DAILY 08/27/19 02/21/23 release (Aspir-) buspirone 30 mg tablet 15 mg PO TID 09/02/19 02/21/23 donepezil 10 mg tablet (Aricept) 10 mg PO HS 09/02/19 02/21/23 melatonin 10 mg tablet 10 mg PO HS 09/02/19 02/21/23 memantine 10 mg tablet (Namenda) 10 mg PO BID 09/02/19 02/21/23 sertraline 50 mg tablet (Zoloft) 75 mg PO DAILY 08/18/20 02/21/23 trazodone 50 mg tablet 50 mg PO QHS 05/18/21 02/21/23 PreserVision AREDS-2 1 tablet PO DAILY 09/11/22 02/21/23 atorvastatin 20 mg tablet (Lipitor) 20 mg PO DAILY 09/11/22 02/21/23 risperidone 1 mg tablet 1 mg PO HS 09/11/22 02/21/23 apixaban 5 mg tablet 5 mg PO BID 09/18/22 02/21/23 divalproex 250 mg tablet,delayed 500 mg PO TID 09/18/22 02/21/23 release (Depakote) cholecalciferol (vitamin D3) 50 50 mcg PO DAILY 10/04/22 02/21/23 mcg (2,000 unit) capsule Allergies Allergy/AdvReac Type Severity Reaction Status Date / Time No Known Allergies Allergy Verified 02/09/23 07:36 [facility] Past Medical History Medical History Abdominal aortic aneurysm Status post repair. Alzheimer disease Anxiety and depression Benign prostatic hyperplasia Chronic anticoagulation Chronic obstructive pulmonary disease Coronary artery disease Lesion of pancreas Mixed hyperlipidemia Obstructive sleep apnea Intolerant to PAP therapy. Paroxysmal atrial flutter Surgical History Surgical History History of abdominal aortic aneurysm repair History of cataract extraction with lens replacement History of cholecystectomy History of coronary artery bypass graft Family History Family History Sibling Cancer Anxiety Mother Anxiety Social History Social History Social History: Surrogate medical decision maker: Ramya Martinez (spouse) or Camelia Duarte (daughter). Code status: Full code. Smoking packs per day: 1 Smoking cigarettes per day: 20.0 Years smoked: 50 Smoking pack-years: 50.00 Smoking status: Former smoker Tobacco type: cigarettes Second hand tobacco smoke exposure: Yes Smoking end date: 11/12/99 Alcohol intake: never Drinks per week: 1 Alcohol use details: Social alcohol use in moderation. Substance use: never Substance use type: does not use Lack of Transportation: No Lack of Food: Never True Current Housing: I Have Housing Concerned About Future Housing: No Difficulty Paying Gas/Electric Bills: No Difficulty Paying for Meds: No Currently Unemployed: No Education: Don't Know Difficulty w/ Childcare or Family Care: No Living arrangements: with family Additional living arrangements comments: Currently living with spouse in [place]. 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 Spiritual care concerns: No Discharge Plan Discharge Prescriptions: No Action risperidone 1 mg tablet 1 mg PO HS PreserVision AREDS-2 1 tablet PO DAILY atorvastatin [Lipitor] 20 mg tablet 20 mg PO DAILY Rx Instructions: TAKE 1 TABLET BY MOUTH DAILY trazodone 50 mg tablet 50 mg PO QHS aspirin [Aspir-81] 81 mg tablet,delayed release (DR/EC) 81 mg PO DAILY buspirone 30 mg tablet 15 mg PO TID Rx Instructions: with meals donepezil [Aricept] 10 mg tablet 10 mg PO HS memantine [Namenda] 10 mg tablet 10 mg PO BID melatonin 10 mg tablet 10 mg PO HS sertraline [Zoloft] 50 mg tablet 75 mg PO DAILY cholecalciferol (vitamin D3) 50 mcg (2,000 unit) capsule 50 mcg PO DAILY clotrimazole [Itch Reli
--- NOTE | 2023-03-04 11:45 | ED.GENADULT ---
HPI - General Adult General Chief complaint: Unspecified Stated complaint: Lethargic Time Seen by Provider: 03/04/23 11:37 Source: other (longterm phd intern) Mode of arrival: EMS Limitations: dementia History of Present Illness HPI narrative: 72 year old male arrives to the Emergency Department via EMS. Patient is sent to the ED for being more lethargic and altered mental status. Patient is normally up and about, but has not been today. He normally feeds himself, but did not today. History of dementia. No fever. NH did a rapid Covid that was negative. Patient states he does not know where he is at. He states he has a little lower abdominal pain. Denies vomiting or diarrhea. States he feels a little nauseous and constipated. Accucheck glucose was 108. Onset (ago): hour(s) (this morning) Severity: moderate Relieving factors: none Exacerbating factors: none Associated symptoms: confusion Treatments prior to arrival: none Related Data Home Medications Medication Instructions Recorded Confirmed aspirin 81 mg tablet,delayed 81 mg PO DAILY 08/27/19 03/04/23 release (Aspir-) buspirone 30 mg tablet 15 mg PO TID 09/02/19 03/04/23 donepezil 10 mg tablet (Aricept) 10 mg PO HS 09/02/19 03/04/23 melatonin 10 mg tablet 10 mg PO HS 09/02/19 03/04/23 memantine 10 mg tablet (Namenda) 10 mg PO BID 09/02/19 03/04/23 sertraline 50 mg tablet (Zoloft) 75 mg PO DAILY 08/18/20 03/04/23 trazodone 50 mg tablet 50 mg PO QHS 05/18/21 03/04/23 PreserVision AREDS-2 1 tablet PO DAILY 09/11/22 03/04/23 atorvastatin 20 mg tablet (Lipitor) 20 mg PO DAILY 09/11/22 03/04/23 risperidone 1 mg tablet 1 mg PO HS 09/11/22 03/04/23 apixaban 5 mg tablet 5 mg PO BID 09/18/22 03/04/23 divalproex 250 mg tablet,delayed 500 mg PO TID 09/18/22 03/04/23 release (Depakote) cholecalciferol (vitamin D3) 50 50 mcg PO DAILY 10/04/22 03/04/23 mcg (2,000 unit) capsule Allergies Allergy/AdvReac Type Severity Reaction Status Date / Time No Known Allergies Allergy Verified 02/09/23 07:36 Review of Systems Review of Systems: All systems reviewed & are unremarkable except as noted in HPI and below Constitutional: Constitutional: Reports as per HPI, Denies chills and Denies fever(s) Eyes: Eyes: Reports as per HPI and Denies change in vision ENT: Reports system reviewed and no additional complaints, except as documented Cardiovascular: Cardiovascular: Reports as per HPI and Denies chest pain Respiratory: Respiratory: Reports as per HPI, Denies cough and Denies dyspnea Gastrointestinal: Gastrointestinal: Reports as per HPI, Reports abdominal pain, Reports constipation, Denies diarrhea, Reports nausea and Denies vomiting Genitourinary: Genitourinary: Reports no additional male genitourinary complaints Musculoskeletal: Musculoskeletal: Reports no additional musculoskeletal complaints Integumentary/Breasts: Skin/Breast: Reports system reviewed and no additional complaints, except as docu Neurologic: Reports system reviewed and no additional complaints, except as documented and Reports confusion Psychiatric: Psychiatric: Reports no additional psychiatric complaints Endocrine: Endocrine: Reports no additional endocrine complaints Hematologic/Lymphatic: Hematologic/Lymphatic: Reports no additional hematologic/lymphatic complaints Allergic/Immunologic: Allergic/Immunologic: Reports no additional allergic/immunologic complaints COUNT INCLUDES THE [facility] Past Medical History Medical History Abdominal aortic aneurysm Status post repair. Alzheimer disease Anxiety and depression Benign prostatic hyperplasia Chronic anticoagulation Chronic obstructive pulmonary disease Coronary artery disease Lesion of pancreas Mixed hyperlipidemia Obstructive sleep apnea Intolerant to PAP therapy. Paroxysmal atrial flutter Surgical History Surgical History History of abdomina
[2023-03-04 11:48] LABS: Appearance Urine Clear (Clear); Bilirubin Urine Negative (Negative); Color Urine Light Yellow (Yellow); Glucose Urine UA Negative (Negative); Ketones Urine Negative (Negative); Leukocyte Esterase Ur Negative LEU/UL (Negative); Nitrate Urine Negative (Negative); Protein Urine Negative (Negative); Urobilinogen Urine 0.2 mg/dL (0.2-1.0)
[2023-03-04 11:55] LABS: Add Urine Microscopic? YES; Amorphous Sediment Urine Heavy; Blood Urine Trace-lysed (Negative); RBC Urine 0-2 /hpf (0-2); Squamous Epithelial Cell Urine Few /hpf (Few)
[2023-03-04 11:56] LABS: Mucus Urine Heavy /lpf
--- NOTE | 2023-03-04 11:56 | PC.NURSE ---
1142 at window yelling, why haven't I been called back. Online Content Editor tried to explain had been with patient and was cleaning up, placing bernardo, and was examining, cont to yell. allowed with patient and daughter
[2023-03-04 12:08] VITALS: BP 111/72; PULSE 76; RESP 20; O2SAT 93
[2023-03-04 12:10] LABS: Basophils Absolute Auto 0.04 K/mm3 (0.00-0.10); Basophils Percent Auto 0.3 % (0.0-1.0); Eosinophils Absolute Auto 0.04 K/mm3 (0.02-0.50); Eosinophils Percent Auto 0.3 % (1.0-6.0); Hematocrit 43.2 % (37.0-46.0); Hemoglobin 14.6 g/dL (12.4-15.3); Immature Granulocyte Absolute 0.06 K/mm3 (0.00-0.00); Immature Granulocyte Percent A 0.5 % (0.0-0.0); Lymphocytes Absolute Auto 1.32 K/mm3 (1.10-4.50); Lymphocytes Percent Auto 10.2 % (18.0-42.0); Mean Corpuscular HGB Conc 33.8 g/dL (32.0-36.0); Mean Corpuscular Hemoglobin 34.5 pg (27.0-31.0); Mean Corpuscular Volume 102.1 fL (78.0-102.0); Mean Platelet Volume 10.2 fl (8.7-11.0); Monocytes Absolute Auto 1.62 K/mm3 (0.10-0.90); Monocytes Percent Auto 12.5 % (2.0-11.0); Neutrophils Absolute Auto 9.9 K/mm3 (1.7-7.2); Neutrophils Percent Auto 76.2 % (50.0-70.0); Platelet Count Result 136 K/mm3 (150-420); Red Blood Count 4.23 M/mm3 (4.70-6.10); Red Cell Distribution Width 12.3 % (11.6-14.4); White Blood Count 12.9 K/mm3 (4.8-10.8)
[2023-03-04 12:30] LABS: Lactic Acid Reflex 1.5 mmol/L (0.4-2.0)
[2023-03-04 12:32] LABS: Albumin Level 2.8 g/dL (3.4-5.0); Alkaline Phosphatase 61 U/L (46-116); Anion Gap 6 mmol/L (8-16); Aspartate Amino Transferase 11 U/L (15-37); Bilirubin,Total 0.6 mg/dL (0.00-1.00); Blood Urea Nitrogen 31 mg/dL (7-18); Calcium 8.9 mg/dL (8.5-10.1); Carbon Dioxide 31 mmol/L (21-32); Chloride 107 mmol/L (98-108); Estimated CRCL calculation 57 ml/min; Estimated Glomerular Filt Rate > 60; Glucose 120 mg/dL (70-99); Osmolality Calculated 305 mOsm/kg (285-295); Potassium 4.7 mmol/L (3.5-5.1); Sodium 144 mmol/L (136-145); Total Protein 6.1 g/dL (6.4-8.2); Troponin I 15.4 ng/L (0.00-60.4)
[2023-03-04 12:48] LABS: Alanine Aminotransferase 11 U/L (16-63)
[2023-03-04 13:28] VITALS: BP 108/70; PULSE 80; RESP 18; TEMP 37; O2SAT 92
== END 2023-03-04 13:30 ==
PROVIDERS: Emergency Provider Emergency Medicine; PCP Family Medicine
DX: G30.9 Alzheimer's disease, unspecified (principal); F02.80 Dementia in other diseases classified elsewhere, unspecified severity, without behavioral disturbance, psychotic disturbance, mood disturbance, and anxiety; I25.10 Atherosclerotic heart disease of native coronary artery without angina pectoris; J44.9 Chronic obstructive pulmonary disease, unspecified; Z79.01 Long term (current) use of anticoagulants; E78.2 Mixed hyperlipidemia; Z87.891 Personal history of nicotine dependence
CPT/HCPCS: 36415; 71045; 80053; 81001; 83605; 84484; 85025; 93005; 96360; 96361; 99284; J7120

== ENCOUNTER 2023-06-28 07:24 | Outpatient (NON) | payer MEDICARE, SELFPAY ==
[2023-06-28 07:33] LABS: Hematocrit 44.5 % (37.0-46.0); Hemoglobin 14.7 g/dL (12.4-15.3); Mean Corpuscular Hemoglobin 33.6 pg (27.0-31.0); Mean Corpuscular Volume 101.8 fL (78.0-102.0); Mean Platelet Volume 10.7 fl (8.7-11.0); Platelet Count Result 125 K/mm3 (150-420); Red Blood Count 4.37 M/mm3 (4.70-6.10); White Blood Count 9.8 K/mm3 (4.8-10.8)
[2023-06-28 07:43] LABS: Alanine Aminotransferase 15 U/L (16-63); Albumin Level 2.3 g/dL (3.4-5.0); Alkaline Phosphatase 63 U/L (46-116); Anion Gap 5 mmol/L (8-16); Aspartate Amino Transferase 18 U/L (15-37); Bilirubin,Total 0.6 mg/dL (0.00-1.00); Blood Urea Nitrogen 38 mg/dL (7-18); Calcium 8.5 mg/dL (8.5-10.1); Carbon Dioxide 35 mmol/L (21-32); Chloride 104 mmol/L (98-108); Estimated Glomerular Filt Rate > 60; Glucose 121 mg/dL (70-99); Osmolality Calculated 308 mOsm/kg (285-295); Potassium 4.4 mmol/L (3.5-5.1); Sodium 144 mmol/L (136-145); Total Protein 5.4 g/dL (6.4-8.2)
[2023-06-28 07:45] LABS: Band Neutrophils Percent 10 % (0-6); Basophils Percent Manual 0 % (0-1); Eosinophils Percent Manual 0 % (1-6); Lymphocytes Absolute Manual 0.58 K/mm3 (1.1-4.5); Lymphocytes Percent Manual 6 % (18-44); Metamyelocytes Percent 0 %; Monocytes Absolute Manual 1.37 K/mm3 (0.1-0.90); Monocytes Percent Manual 14 % (3-9); Myelocytes Percent 0 %; Neutrophils Absolute Manual 7.84 K/mm3 (1.3-6.7); Neutrophils Percent Manual 70 % (46-73); Platelet Estimate Adequate (Adequate); Total Cells Counted 100
== END 2023-06-28 07:25 | disposition home or self-care (01) ==
LOC: CHSLAB 07:26
PROVIDERS: Visit Provider Family Medicine
DX: I50.9 Heart failure, unspecified (principal)
CPT/HCPCS: 36415; 80053; 85025

== ENCOUNTER 2023-07-05 06:46 | Outpatient (NON) | payer MEDICARE, SELFPAY ==
[2023-07-05 06:56] LABS: Appearance Urine Cloudy (Clear); Bilirubin Urine Negative (Negative); Blood Urine 1+ (Negative); Color Urine Yellow (Yellow); Glucose Urine UA Negative (Negative); Hematocrit 45.8 % (37.0-46.0); Hemoglobin 14.8 g/dL (12.4-15.3); Ketones Urine 1+ (Negative); Leukocyte Esterase Ur Negative LEU/UL (Negative); Mean Corpuscular HGB Conc 32.3 g/dL (32.0-36.0); Mean Corpuscular Hemoglobin 33.2 pg (27.0-31.0); Mean Corpuscular Volume 102.7 fL (78.0-102.0); Nitrate Urine Negative (Negative); Platelet Count Result 275 K/mm3 (150-420); Protein Urine Negative (Negative); Red Blood Count 4.46 M/mm3 (4.70-6.10); Red Cell Distribution Width 12.7 % (11.6-14.4); Specific Grav Ur 1.025 (1.010-1.020)
[2023-07-05 07:05] LABS: Alanine Aminotransferase 24 U/L (16-63); Albumin Level 2.5 g/dL (3.4-5.0); Alkaline Phosphatase 59 U/L (46-116); Anion Gap 6 mmol/L (8-16); Aspartate Amino Transferase 35 U/L (15-37); Bilirubin,Total 0.7 mg/dL (0.00-1.00); Blood Urea Nitrogen 36 mg/dL (7-18); Calcium 9.1 mg/dL (8.5-10.1); Carbon Dioxide 36 mmol/L (21-32); Chloride 110 mmol/L (98-108); Estimated Glomerular Filt Rate > 60; Glucose 84 mg/dL (70-99); Osmolality Calculated 321 mOsm/kg (285-295); Potassium 4.2 mmol/L (3.5-5.1); Sodium 152 mmol/L (136-145)
[2023-07-05 07:12] LABS: Add Urine Microscopic? YES; Amorphous Sediment Urine Moderate; Bacteria Urine 1+ /hpf; RBC Urine 0-2 /hpf (0-2); WBC Urine None seen /hpf (0-3)
[2023-07-05 07:19] LABS: Band Neutrophils Percent 1 % (0-6); Basophils Percent Manual 0 % (0-1); Eosinophils Percent Manual 0 % (1-6); Lymphocytes Absolute Manual 1.71 K/mm3 (1.1-4.5); Lymphocytes Percent Manual 19 % (18-44); Metamyelocytes Percent 0 %; Monocytes Absolute Manual 1.17 K/mm3 (0.1-0.90); Monocytes Percent Manual 13 % (3-9); Myelocytes Percent 0 %; Neutrophils Absolute Manual 6.12 K/mm3 (1.3-6.7); Neutrophils Percent Manual 67 % (46-73); Platelet Estimate Adequate (Adequate); Total Cells Counted 100
== END 2023-07-05 06:47 | disposition home or self-care (01) ==
LOC: CHSLAB 06:47
PROVIDERS: Visit Provider Family Medicine
DX: I48.91 Unspecified atrial fibrillation (principal); I50.9 Heart failure, unspecified; J44.9 Chronic obstructive pulmonary disease, unspecified
CPT/HCPCS: 36415; 80053; 81001; 85025

== ENCOUNTER 2023-07-07 06:38 | Outpatient (NON) | payer MEDICARE, SELFPAY ==
[2023-07-07 07:12] LABS: Anion Gap 6 mmol/L (8-16); Blood Urea Nitrogen 41 mg/dL (7-18); Calcium 8.8 mg/dL (8.5-10.1); Carbon Dioxide 34 mmol/L (21-32); Chloride 104 mmol/L (98-108); Estimated Glomerular Filt Rate 60; Glucose 103 mg/dL (70-99); Osmolality Calculated 308 mOsm/kg (285-295); Sodium 144 mmol/L (136-145)
== END 2023-07-07 06:39 | disposition home or self-care (01) ==
LOC: CHSLAB 06:41
PROVIDERS: Visit Provider Family Medicine
DX: R79.9 Abnormal finding of blood chemistry, unspecified (principal); I48.91 Unspecified atrial fibrillation; I50.9 Heart failure, unspecified
CPT/HCPCS: 36415; 80048

== ENCOUNTER 2023-08-07 11:17 | Outpatient (CLI) | payer MEDICARE, MEDICAID, SELFPAY ==
--- NOTE | ~2023-08-07 | XR_ITS ---
EXAMINATION: XR lumbar spine 2-3V DATE: 08/07/2023 11:52 INDICATION: Back pain. Fall. TECHNIQUE: 3 views of lumbar spine on 4 radiographs were obtained. COMPARISON: Lumbar spine radiographs 06/05/2022 FINDINGS: There is 4 degrees dextrocurvature of lumbar spine. Vertebral body heights are normal. Inte rvertebral disc heights are normal. There are endplate osteophytes at all levels. There is multilevel facet joint osteoarthritis, severe in lower lumbar spine. Surgical clips in the right upper quadrant are likely from cholecystectomy. IMPRESSION: 1. Mild lumbar spondylosis. Reviewed, dictated and finalized at location E. E SETTING PAINTER APPRENTICE IMPRESSION: 1. Mild lumbar spondylosis.
--- NOTE | ~2023-08-07 | CT_ITS ---
EXAMINATION: CT brain wo con DATE: 08/07/2023 11:52 INDICATION: Posterior head injury post fall TECHNIQUE: Computed tomography (CT) of the head was performed without intravenous contrast. Sagittal and coronal reconstructions were performed. The mA was adjusted according to patient size. Iterative reconstruction technique was employed. The dose-length product was 681.00 mGy-cm. COMPARISON: head CT dated 12/05/2022 and MR dated 12/07/2022 FINDINGS: No fracture. No acute intracranial hemorrhage, acute infarction or abnormal extra axial fluid collect ion. There is mild scattered white matter hypoattenuation consistent with chronic small vessel ischem ic disease. Symmetric prominence of the sulci consistent with moderate age-appropriate diffuse cerebr al volume loss. Ventricles are normal and symmetric. No mass/mass effect. Mild mucosal thickening in the left maxillary and bilateral ethmoid sinuses. Changes of bilateral intraocular lens replacement. The mastoid air cells are normal. IMPRESSION: 1. No fracture or acute intracranial process. 2. Age-related changes including moderate diffuse volume loss and mild scattered white matter hypoatt enuation consistent with chronic small vessel ischemic disease. Reviewed, dictated and finalized at location A. CHIPPER IMPRESSION: 1. No fracture or acute intracranial process. 2. Age-related changes including moderate diffuse volume loss and mild scattere d white matter hypoattenuation consistent with chronic small vessel ischemic di sease.
== END 2023-08-07 11:18 | disposition home or self-care (01) ==
LOC: CHSIMG 11:22
PROVIDERS: PCP Family Medicine; Visit Provider Nurse Practitioner Family
DX: M54.50 Low back pain, unspecified (principal); W19.XXXA Unspecified fall, initial encounter; M43.06 Spondylolysis, lumbar region
CPT/HCPCS: 70450; 72100

== ENCOUNTER 2023-08-21 13:41 | Outpatient (NON) | payer MEDICARE, SELFPAY ==
[2023-08-21 13:53] LABS: Hematocrit 40.4 % (37.0-46.0); Hemoglobin 13.1 g/dL (12.4-15.3); Mean Corpuscular HGB Conc 32.4 g/dL (32.0-36.0); Mean Corpuscular Hemoglobin 33.5 pg (27.0-31.0); Mean Corpuscular Volume 103.3 fL (78.0-102.0); Mean Platelet Volume 9.7 fl (8.7-11.0); Platelet Count Result 174 K/mm3 (150-420); Red Blood Count 3.91 M/mm3 (4.70-6.10); Red Cell Distribution Width 14.2 % (11.6-14.4); White Blood Count 6.1 K/mm3 (4.8-10.8)
[2023-08-21 14:02] LABS: Band Neutrophils Percent 0 % (0-6); Eosinophils Absolute Manual 0.18 K/mm3 (0.02-0.5); Eosinophils Percent Manual 3 % (1-6); Lymphocytes Absolute Manual 1.95 K/mm3 (1.1-4.5); Lymphocytes Percent Manual 32 % (18-44); Monocytes Absolute Manual 1.15 K/mm3 (0.1-0.90); Monocytes Percent Manual 19 % (3-9); Neutrophils Percent Manual 46 % (46-73); Platelet Estimate Adequate (Adequate); Total Cells Counted 100
[2023-08-21 14:21] LABS: Alanine Aminotransferase 13 U/L (16-63); Albumin Level 2.8 g/dL (3.4-5.0); Alkaline Phosphatase 64 U/L (46-116); Anion Gap 8 mmol/L (8-16); Aspartate Amino Transferase 17 U/L (15-37); Bilirubin,Total 0.4 mg/dL (0.00-1.00); Blood Urea Nitrogen 22 mg/dL (7-18); Calcium 8.1 mg/dL (8.5-10.1); Carbon Dioxide 31 mmol/L (21-32); Chloride 103 mmol/L (98-108); Estimated Glomerular Filt Rate > 60; Glucose 106 mg/dL (70-99); Magnesium 1.9 mg/dL (1.8-2.4); Osmolality Calculated 297 mOsm/kg (285-295); Potassium 4.5 mmol/L (3.5-5.1); Sodium 142 mmol/L (136-145); Total Protein 5.8 g/dL (6.4-8.2)
== END 2023-08-21 13:42 | disposition home or self-care (01) ==
LOC: CHSLAB 13:44
PROVIDERS: Visit Provider Nurse Practitioner Family
DX: R41.0 Disorientation, unspecified (principal)
CPT/HCPCS: 36415; 80053; 83735; 85025

== ENCOUNTER 2023-08-23 10:30 | Outpatient (NON) | payer MEDICARE, SELFPAY ==
[2023-08-23 11:01] LABS: Appearance Urine Clear (Clear); Bilirubin Urine Negative (Negative); Blood Urine 3+ (Negative); Color Urine Light Yellow (Yellow); Glucose Urine UA Negative (Negative); Ketones Urine Negative (Negative); Leukocyte Esterase Ur 2+ LEU/UL (Negative); Nitrate Urine Negative (Negative); Protein Urine Negative (Negative); Urobilinogen Urine 0.2 mg/dL (0.2-1.0)
[2023-08-23 11:12] LABS: Add Urine Microscopic? YES
[2023-08-23 11:13] LABS: Bacteria Urine Rare /hpf; WBC Urine 16-20 /hpf (0-3)
== END 2023-08-23 10:31 | disposition home or self-care (01) ==
LOC: CHSLAB 10:32
PROVIDERS: Visit Provider Family Medicine
DX: N39.0 Urinary tract infection, site not specified (principal)
CPT/HCPCS: 81001; 87077; 87086; 87088; 87186

== ENCOUNTER 2023-10-06 19:06 | Outpatient (CLI) | payer MEDICARE, MEDICAID, SELFPAY ==
[2023-10-06 19:47] LABS: Appearance Urine Clear (Clear); Bilirubin Urine Negative (Negative); Blood Urine Trace-Intact (Negative); Color Urine Light Yellow (Yellow); Glucose Urine UA Negative (Negative); Ketones Urine Negative (Negative); Leukocyte Esterase Ur Negative LEU/UL (Negative); Nitrate Urine Negative (Negative); Protein Urine Negative (Negative); Urobilinogen Urine 0.2 mg/dL (0.2-1.0)
[2023-10-06 19:55] LABS: Add Urine Microscopic? YES; RBC Urine 0-2 /hpf (0-2)
== END 2023-10-06 19:07 | disposition home or self-care (01) ==
LOC: CHSLAB 19:09
PROVIDERS: PCP Family Medicine; Visit Provider Family Medicine
DX: R41.82 Altered mental status, unspecified (principal)
CPT/HCPCS: 81001

== ENCOUNTER 2023-11-11 12:46 | Emergency (ER) | payer MEDICARE, MEDICAID, SELFPAY ==
--- NOTE | ~2023-11-11 | XR_ITS ---
XR hip RT 2V w AP pelvis DATE: 11/11/2023 13:35 INDICATION: Fall. TECHNIQUE: AP pelvis. AP and lateral views of right hip. COMPARISON: None FINDINGS: There is osteopenia. There is degenerative disc disease of the lumbar spine. The pubic symphysis and sacroiliac joints are normally aligned. No pelvic fracture or bone destructio n is detected. Hip joint spaces are symmetric and relatively preserved. No fracture or dislocation, avascular necros is or bone destruction of the right hip is detected. There is calcification of the abdominal aorta, iliac and particularly femoral arteries. IMPRESSION: Osteopenia No pelvic or right hip fracture or dislocation is detected Reviewed, dictated and finalized at location A.
--- NOTE | ~2023-11-11 | CT_ITS ---
EXAMINATION: CT cervical spine wo con DATE: 11/11/2023 13:34 INDICATION: Patient fell and struck back of head. TECHNIQUE: Computed tomography (CT) of the cervical spine was performed without intravenous contrast. Automated exposure control and iterative reconstruction technique were employed. Exam dose: 567.21 mGy-cm total exam DLP. COMPARISON: None FINDINGS: C1 and C2 are normally aligned and the odontoid process is intact. No fracture or dislocati on or locked facet or prevertebral soft tissue swelling. No fracture or dislocation or locked facet or prevertebral soft tissue swelling. There is moderately prominent loss of interspace height at C5-6. There is degenerative change at the apophyseal joints. Emphysematous changes of the lungs are incidentally noted.. IMPRESSION: Mild cervical spondylosis; no evidence of fracture, dislocation or locked facet Reviewed, dictated and finalized at Location A. Reviewed, dictated and finalized at location A.
--- NOTE | ~2023-11-11 | XR_ITS ---
XR lumbar spine 2-3V DATE: 11/11/2023 13:34 INDICATION: Fall. TECHNIQUE: AP, lateral, coned lateral lumbosacral views COMPARISON: 08/07/2023 lumbar spine FINDINGS: There is osteopenia. There is degenerative spurring of the thoracic and lumbar spine. Lumbar interspaces are relatively we ll preserved. No lumbar spine fracture or bone destruction is evident. The lumbar pedicles are intact. The sacral i liac joints are intact. Abdominal aortic and iliac artery calcifications Status post cholecystectomy. There is a calcification overlying the right kidney; cannot exclude right nephrolithiasis. IMPRESSION: Osteopenia Moderate degenerative change of the lower thoracic and lumbar spine; no fracture Reviewed, dictated and finalized at location A. IMPRESSION: Osteopenia Moderate degenerative change of the lower thoracic and lumbar spine; no fractur e
--- NOTE | ~2023-11-11 | CT_ITS ---
EXAMINATION: CT brain wo con DATE: 11/11/2023 13:35 INDICATION: Fall today. Struck posterior head. TECHNIQUE: Computed tomography (CT) of the head was performed without intravenous contrast. The mA wa s adjusted according to patient size. Iterative reconstruction technique was employed. Exam dose: 75 6.67 mGy-cm total exam DLP. COMPARISON: 08/07/2023 CT brain FINDINGS: Left vertebral artery, basilar artery and prominent bilateral carotid siphon internal carot id artery calcifications. There is nonspecific diminished attenuation of the cerebral white matter, l ikely due to chronic small vessel ischemic changes. No intracranial mass lesion or hemorrhage or cerebrovascular accident is evident. No midline shift or mass effect. There is central and cortical cerebral and cerebellar atrophy. No subdural or epidural hematoma is detected. The mastoid air cells and paranasal sinuses are normally developed and aerated. No fracture or bone destruction of the cranial vault IMPRESSION: No skull fracture or acute intracranial finding Reviewed, dictated and finalized at Location A. Reviewed, dictated and finalized at location A.
--- NOTE | ~2023-11-11 | CT_ITS ---
EXAMINATION: CT elbow LT wo con DATE: 11/11/2023 14:22 INDICATION: Left elbow injury. TECHNIQUE: Computed tomography (CT) of the left elbow was performed without intravenous contrast. Aut omated exposure control and iterative reconstruction technique were employed. The dose-length product was 131.55 mGy-cm. COMPARISON: Left elbow radiographs 11/11/2023 FINDINGS: Bone alignment is normal. No fracture. There is mild elbow joint osteoarthritis. No elbow j oint effusion. IMPRESSION: 1. No fracture. 2. Mild elbow joint osteoarthritis. Reviewed, dictated and finalized at location E.
--- NOTE | ~2023-11-11 | XR_ITS ---
XR elbow LT min 3V DATE: 11/11/2023 13:35 INDICATION: Fall. TECHNIQUE: 4 nonstandard views are provided. COMPARISON: None FINDINGS: This examination is limited because these are nonstandard views as result of the patient be ing trauma packaged according to the technologist. There is suggestion of coronoid process fracture at the proximal ulna. Repeat examination with standa rd views is recommended. If these are not possible, then consider CT examination. IMPRESSION: Limited incomplete nondiagnostic examination. Possible coronoid process fracture of proxi mal ulna. Repeat radiographic views with standard positioning or CT examination are recommended Reviewed, dictated and finalized at location A. IMPRESSION: Limited incomplete nondiagnostic examination. Possible coronoid pro cess fracture of proximal ulna. Repeat radiographic views with standard positioning or CT examination are recom mended
[2023-11-11 12:46] VITALS: BP 106/59; PULSE 72; RESP 19; TEMP 36.6; O2SAT 94
--- NOTE | 2023-11-11 13:03 | ED.FALL ---
HPI - Fall General Chief Complaint: Fall Stated Complaint: fall Time Seen by Provider: 11/11/23 13:00 Source: patient Mode of arrival: EMS Limitations: no limitations History of Present Illness HPI Narrative: Patient is a 73-year-old male from the residential who was pivoting from a sitting position and fell and hit his head and neck and left elbow and right hip. No loss of consciousness. He is having pain at most of these sites. complaint: fall Onset (ago): minute(s) (30) Fall from: other (sitting position and pivoting and fell) Fall witnessed: yes, by bystander Place fall occurred: home Loss of consciousness: none Prolonged down time: no Symptoms prior to fall: none Context: tripped/slipped Location of injury: head, neck, back and pelvis (right hip) Location of injury - extremities: Left: elbow and Right: lower leg Severity: mild Severity scale (1-10): 3 Quality: sharp Associated symptoms (after fall): neck pain and unable to walk (baseline is pivoting and not walking; uses help to move around) Related Data Home Medications Medication Instructions Recorded Confirmed aspirin 81 mg tablet,delayed 81 mg PO DAILY 08/27/19 11/11/23 release (Aspir-) buspirone 30 mg tablet 15 mg PO TID 09/02/19 11/11/23 melatonin 10 mg tablet 10 mg PO HS 09/02/19 11/11/23 memantine 10 mg tablet (Namenda) 10 mg PO BID 09/02/19 11/11/23 PreserVision AREDS-2 1 tablet PO DAILY 09/11/22 11/11/23 atorvastatin 20 mg tablet (Lipitor) 20 mg PO DAILY 09/11/22 11/11/23 divalproex 250 mg tablet,delayed 500 mg PO TID 09/18/22 11/11/23 release (Depakote) cholecalciferol (vitamin D3) 50 50 mcg PO DAILY 10/04/22 11/11/23 mcg (2,000 unit) capsule trazodone 50 mg tablet 25 mg PO QHS PRN Sleep 10/31/23 11/11/23 Allergies Allergy/AdvReac Type Severity Reaction Status Date / Time No Known Allergies Allergy Verified 11/11/23 13:10 Review of Systems Review of Systems: All systems reviewed & are unremarkable except as noted in HPI and below Constitutional: Constitutional: Reports no additional constitutional complaints Eyes: Eyes: Reports no additional eye complaints ENT: Reports system reviewed and no additional complaints, except as documented Cardiovascular: Cardiovascular: Reports no additional cardiovascular complaints Respiratory: Respiratory: Reports no additional respiratory complaints Gastrointestinal: Gastrointestinal: Reports no additional gastrointestinal complaints Genitourinary: Genitourinary: Reports no additional male genitourinary complaints Musculoskeletal: Musculoskeletal: Reports no additional musculoskeletal complaints Integumentary/Breasts: Skin/Breast: Reports system reviewed and no additional complaints, except as docu Neurologic: Reports system reviewed and no additional complaints, except as documented Psychiatric: Psychiatric: Reports no additional psychiatric complaints Endocrine: Endocrine: Reports no additional endocrine complaints Hematologic/Lymphatic: Hematologic/Lymphatic: Reports no additional hematologic/lymphatic complaints Allergic/Immunologic: Allergic/Immunologic: Reports no additional allergic/immunologic complaints PMFSH Past Medical History Medical History Abdominal aortic aneurysm Status post repair. Alzheimer disease Benign prostatic hyperplasia Chronic anticoagulation Chronic obstructive pulmonary disease Coronary artery disease Lesion of pancreas Mixed hyperlipidemia Obstructive sleep apnea Intolerant to PAP therapy. Paroxysmal atrial flutter Surgical History Surgical History History of abdominal aortic aneurysm repair History of cataract extraction with lens replacement History of cholecystectomy History of coronary artery bypass graft Family History Family History Sibling Cancer Anxiety Mother Anxie
[2023-11-11 13:20] VITALS: BP 106/59; PULSE 72; RESP 19; TEMP 36.6; O2SAT 94
[2023-11-11 13:36] VITALS: BP 134/82; PULSE 66; RESP 19; O2SAT 93
[2023-11-11 14:00] VITALS: BP 120/84; PULSE 71; RESP 17; O2SAT 94
--- NOTE | 2023-11-11 14:36 | PC.NURSE ---
Rn spoke with MARIE Bains, Report given, patient to return to [facility] and rehab.
[2023-11-11 14:40] VITALS: BP 129/93; PULSE 67; RESP 17; TEMP 36.7; O2SAT 94
== END 2023-11-11 14:40 | disposition home or self-care (01) ==
PROVIDERS: Emergency Provider Emergency Medicine; PCP Family Medicine
DX: S50.02XA Contusion of left elbow, initial encounter (principal); S09.90XA Unspecified injury of head, initial encounter; W19.XXXA Unspecified fall, initial encounter; G30.9 Alzheimer's disease, unspecified; F02.80 Dementia in other diseases classified elsewhere, unspecified severity, without behavioral disturbance, psychotic disturbance, mood disturbance, and anxiety; I25.10 Atherosclerotic heart disease of native coronary artery without angina pectoris; G47.33 Obstructive sleep apnea (adult) (pediatric); E78.2 Mixed hyperlipidemia; Z87.891 Personal history of nicotine dependence
CPT/HCPCS: 70450; 72100; 72125; 73080; 73200; 73502; 99284

== ENCOUNTER 2024-02-28 15:05 | Outpatient (CLI) | payer MEDICARE, MEDICAID, SELFPAY ==
--- NOTE | ~2024-02-28 | XR_ITS ---
Clinical Indication: Chest pain, shortness of breath PA and lateral views of the chest: Comparison: 03/04/2023 Findings: There is probable linear scarring at the right lung base. The minimal left pleural effusion present. Cardiomediastinal silhouette is stable. Stable calcified right hilar/right paratracheal ly mph nodes. Bones and soft tissues are unremarkable. Impression: Minimal left pleural effusion. Linear scarring right lung base. Reviewed, dictated and finalized at location . Impression: Minimal left pleural effusion. Linear scarring right lung base.
== END 2024-02-28 15:06 | disposition home or self-care (01) ==
LOC: CHSIMG 15:08
PROVIDERS: PCP Family Medicine; Visit Provider Family Medicine
DX: R06.02 Shortness of breath (principal); J90 Pleural effusion, not elsewhere classified; R91.8 Other nonspecific abnormal finding of lung field
CPT/HCPCS: 71046

== ENCOUNTER 2024-03-04 12:51 | Emergency (ER) | payer MEDICARE, MEDICAID, SELFPAY ==
[2024-03-04] VITALS (21 sets, daily range): BP systolic 52–127; BP diastolic 39–96; PULSE 55–65; RESP 11–21; TEMP 36.4; O2SAT 80–100
--- NOTE | ~2024-03-04 | CT_ITS ---
CT brain wo con Ordering provider: Jose G May MD History: 73 years Male with . syncope. on anticoagulation. r/o ICH. . Comparison: November 11, 2023 Technique: CT of the head without contrast. Radiation reduction technique utilized. DLP is 681 mGy-cm. FINDINGS: BRAIN PARENCHYMA AND CSF SPACES: Mild leukoaraiosis and diffuse cortical atrophy. Mild atheromatous d isease. Mild ventricular dilatation. No midline shift, mass effect or hemorrhage. The brain parenchy ma and CSF spaces are otherwise normal. VISUALIZED PARANASAL SINUSES: Well aerated. MASTOIDS: Well aerated. BONES: The bones appear intact. SOFT TISSUES: Visualized nasopharynx is normal. Superficial soft tissues are normal. IMPRESSION: No acute intracranial findings. Reviewed, dictated and finalized at location A.
--- NOTE | ~2024-03-04 | CT_ITS ---
CT chest abdomen pelvis wo con Ordering provider: Jose G May MD History: . left flank/left lateral chest pain. . Comparison: None. Technique: CT chest without IV contrast. CT abdomen and pelvis without oral and IV contrast. Radiation reduction technique utilized. DLP is 1858.94 mGy-cm FINDINGS: The study is limited due to lack of IV contrast. CHEST: --VISUALIZED THORACIC INLET: Normal as visualized. --MEDIASTINUM: Aorta/coronary arteries: Mild atheromatous disease. Heart/other: The heart is not enlarged. Lymph nodes: No mediastinal or hilar adenopathy. --LUNGS: Emphysematous changes of the lungs. Atelectatic changes in the right lung base and in the li ngula. Nodule is seen in the left lower lobe measuring 7 mm. 6 months follow-up advised. No infiltrat es or effusions. No pneumothorax. --MUSCULOSKELETAL: Soft tissues: The superficial soft tissues are normal. Bones: Age appropriate degenerative changes of the spine. Postoperative changes in the sternum. ABDOMEN/PELVIS: --MUSCULOSKELETAL: Bones: Age appropriate degenerative changes of the spine. Superficial soft tissues: The superficial soft tissues are normal. --UPPER ABDOMINAL ORGANS: Liver: Normal. Gallbladder: Status post cholecystectomy. Spleen: Benign calcifications. Stomach/duodenum: Small sliding hiatus hernia. Pancreas: Normal. Adrenals: Normal. Kidneys: Stone in the right kidney upper lower pole measuring 8 mm.. --PELVIC ORGANS: Slightly thickened wall of the urinary bladder with underfilling. Evaluation for cys titis advised. Prostatic calcifications. --BOWEL AND MESENTERY: Colon: No evidence of diverticulitis. Normal appendix. Small Bowel: Normal. No obstruction. Peritoneum/mesentery: No free air or free fluid. No mesenteric lymphadenopathy. --RETROPERITONEUM: Mild atheromatous disease of the abdominal aorta. No retroperitoneal lymphadenop athy. IMPRESSION: CHEST: 1. No acute lung disease. 2. Nodule measuring 7 mm in the left lower lobe. Follow-up CT scan in 6 months is advised. 3. Minimal atelectatic changes in the right lower lobe and in the lingula. ABDOMEN/PELVIS: 1. Stone in the right kidney. No hydronephrotic changes. 2. No evidence of appendicitis, diverticulitis or intestinal obstruction. Reviewed, dictated and finalized at location A.
--- NOTE | 2024-03-04 13:00 | ECG_ITS ---
Test Date: 2024-03-04 13:10:02 Measurements Intervals [place] Rate: 66 P: 67 WI: 163 QRS: 77 QRSD: 115 T: 101 QT: 431 QTc: 453 Interpretive Statements SINUS RHYTHM INTRAVENTRICULAR CONDUCTION DELAY LOW QRS VOLTAGE IN PRECORDIAL LEADS BORDERLINE ST-T WAVE ABNORMALITY- DIFFUSE LEADS BASELINE ARTIFACT- I, III, AVL BORDERLINE ECG No previous ECG available for comparison Electronically Signed On 03-04-2024 13:28:44 CDT by Moreno Fields D.O.
--- NOTE | 2024-03-04 13:00 | ED.GENADULT ---
HPI - General Adult General Chief complaint: Weakness Stated complaint: syncope Time Seen by Provider: 03/04/24 12:57 History of Present Illness HPI narrative: The patient is a 73-year-old male with history of atrial fibrillation on Xarelto therapy, as well as aspirin 81 mg daily, Elzonris dimension in [facility], COPD, hypertension, hyperlipidemia, obstructive sleep apnea, CHF, coronary artery disease status post coronary artery bypass grafting, depression, and anxiety. He is DNR selective care. He has frequent falls. he has had a prior abdominal aortic aneurysm repair and cholecystectomy as well. He has had left flank pain for the last 3 days, mild, not radiating elsewhere such as to the back or abdomen or chest but sometimes he points to the left lateral chest wall as hurting. Did have hematuria yesterday but not today. No dysuria. Today, while on the toilet after a bowel movement, he had a vasovagal syncopal episode that lasted a few seconds, witnessed, did not strike his head or other parts of his body, no injuries, and recovered very quickly. The staff at the [facility] report he is weak, weaker than usual. No other history is available obtainable, given patient's dementia. Related Data Home Medications Medication Instructions Recorded Confirmed aspirin 81 mg tablet,delayed 81 mg PO DAILY 08/27/19 03/04/24 release (Aspir-) melatonin 10 mg tablet 10 mg PO HS 09/02/19 03/04/24 memantine 10 mg tablet (Namenda) 10 mg PO BID 09/02/19 03/04/24 PreserVision AREDS-2 1 tablet PO DAILY 09/11/22 03/04/24 atorvastatin 20 mg tablet (Lipitor) 20 mg PO DAILY 09/11/22 03/04/24 divalproex 250 mg tablet,delayed 500 mg PO TID 09/18/22 03/04/24 release (Depakote) cholecalciferol (vitamin D3) 50 50 mcg PO DAILY 10/04/22 03/04/24 mcg (2,000 unit) capsule trazodone 50 mg tablet 25 mg PO QHS PRN Sleep 10/31/23 03/04/24 donepezil 10 mg tablet (Aricept) 10 mg PO DAILY 03/04/24 03/04/24 mirabegron 50 mg tablet,extended 25 mg PO DAILY 03/04/24 03/04/24 release 24 hr (Myrbetriq) tamsulosin 0.4 mg capsule (Flomax) 0.4 mg PO DAILY 03/04/24 03/04/24 Allergies Allergy/AdvReac Type Severity Reaction Status Date / Time No Known Allergies Allergy Verified 03/04/24 13:02 Review of Systems Review of Systems: ROS unobtainable: Yes unobtainable due to medical condition ( Dementia) [facility] Past Medical History Medical History Abdominal aortic aneurysm Status post repair. Alzheimer disease Benign prostatic hyperplasia Chronic anticoagulation Chronic obstructive pulmonary disease Coronary artery disease Lesion of pancreas Mixed hyperlipidemia Obstructive sleep apnea Intolerant to PAP therapy. Paroxysmal atrial flutter Surgical History Surgical History History of abdominal aortic aneurysm repair History of cataract extraction with lens replacement History of cholecystectomy History of coronary artery bypass graft Family History Family History Sibling Cancer Anxiety Mother Anxiety Other Anxiety and depression Social History Social History Social History: Surrogate medical decision maker: Ramya Martinez (spouse) or Camelia Duarte (daughter). Code status: Full code. Smoking packs per day: 1 Smoking cigarettes per day: 20.0 Years smoked: 50 Smoking pack-years: 50.00 Smoking status: Former smoker Tobacco type: cigarettes Second hand tobacco smoke exposure: Yes Smoking end date: 11/12/99 Alcohol intake: never Drinks per week: 1 Alcohol use details: Social alcohol use in moderation. Substance use: never Substance use type: does not use Lack of Transportation: No Lack of Food: Never True Current Housing: I Have Housing Concerned About Future Housing: No Difficulty Paying Gas/
[2024-03-04 13:18] LABS: Basophils Absolute Auto 0.03 K/mm3 (0.00-0.10); Basophils Percent Auto 0.5 % (0.0-1.0); Eosinophils Absolute Auto 0.16 K/mm3 (0.02-0.50); Eosinophils Percent Auto 2.4 % (1.0-6.0); Hematocrit 44.6 % (37.0-46.0); Hemoglobin 14.8 g/dL (12.4-15.3); Immature Granulocyte Absolute 0.03 K/mm3 (0.00-0.00); Immature Granulocyte Percent A 0.5 % (0.0-0.0); Lymphocytes Absolute Auto 1.53 K/mm3 (1.10-4.50); Mean Corpuscular HGB Conc 33.2 g/dL (32-36); Mean Corpuscular Hemoglobin 33.1 pg (27.0-31.0); Mean Corpuscular Volume 99.8 fL (78.0-102.0); Mean Platelet Volume 9.9 fl (8.7-11.0); Monocytes Absolute Auto 0.82 K/mm3 (0.10-0.90); Monocytes Percent Auto 12.3 % (2.0-11.0); Neutrophils Absolute Auto 4.09 K/mm3 (1.70-7.20); Neutrophils Percent Auto 61.3 % (50.0-70.0); Platelet Count Result 144 K/mm3 (150-420); Red Blood Count 4.47 M/mm3 (4.70-6.10); Red Cell Distribution Width 12.4 % (11.6-14.4); White Blood Count 6.7 K/mm3 (4.8-10.8)
[2024-03-04 13:36] LABS: Alanine Aminotransferase 9 U/L (16-63); Albumin Level 2.5 g/dL (3.4-5.0); Alkaline Phosphatase 77 U/L (46-116); Amylase 56 U/L (25-115); Anion Gap 5 mmol/L (4-12); Aspartate Amino Transferase 18 U/L (15-37); Bilirubin,Total 0.5 mg/dL (0.00-1.00); Blood Urea Nitrogen 21 mg/dL (7-18); Calcium 8.7 mg/dL (8.5-10.1); Carbon Dioxide 33 mmol/L (21-32); Chloride 103 mmol/L (98-108); Estimated CRCL calculation 52 ml/min; Estimated Glomerular Filt Rate > 60; Glucose 125 mg/dL (70-99); Lipase 51 U/L (16-77); Magnesium 1.9 mg/dL (1.8-2.4); Osmolality Calculated 296 mOsm/kg (285-295); Potassium 3.7 mmol/L (3.5-5.1); Sodium 141 mmol/L (136-145); Total Protein 5.9 g/dL (6.4-8.2); Troponin I 11.4 ng/L (0.00-60.4)
--- NOTE | 2024-03-04 14:07 | PC.NURSE ---
IV fluids delayed due to pt having EKG and going to CAT scan.
[2024-03-04] MEDS: SODIUM CHLORIDE 0.9% IV 1,000 ML 999 ML IV CONT (14:26)
--- NOTE | 2024-03-04 15:07 | PC.NURSE ---
Pt is resting comfortably. He has been placed in a urinal. has gone to the waiting room.
[2024-03-04 15:29] LABS: Appearance Urine Clear (Clear); Bilirubin Urine Negative (Negative); Blood Urine 1+ (Negative); Color Urine Light Yellow (Yellow); Glucose Urine UA Negative (Negative); Ketones Urine Negative (Negative); Leukocyte Esterase Ur Trace LEU/UL (Negative); Nitrate Urine Negative (Negative); Protein Urine Negative (Negative); Urobilinogen Urine 0.2 mg/dL (0.2-1.0)
--- NOTE | 2024-03-04 15:30 | PC.NURSE ---
Urine collected and sent to lab. Pt's bottom cleaned. New depends applied. Blister noted on top of penis. ERP notified. Is aware. Barrier cream applied. Bottom in tact, no soreness or redness noted. Purple and yellow, healing bruise noted to left hip.
[2024-03-04 15:41] LABS: Add Urine Microscopic? YES; Bacteria Urine Trace /hpf; Squamous Epithelial Cell Urine Few /hpf (Few); WBC Urine 0-3 /hpf (0-3)
--- NOTE | 2024-03-04 15:52 | PC.NURSE ---
Gave pt. snack and drink. Resting comfortably, upright in his stretcher. Call light within reach.
[2024-03-04] MEDS: CEPHALEXIN 500 MG CAPSULE PO (16:02)
--- NOTE | 2024-03-04 16:22 | PC.NURSE ---
Attempted to call report. Waiting for senior care to call back.
--- NOTE | 2024-03-06 12:14 | PC.NURSE ---
Final urine culture report: Mixed genital michael, no further action or treatment needed per ERP Dr. May.
== END 2024-03-04 16:48 ==
PROVIDERS: Emergency Provider Emergency Medicine; PCP Family Medicine
DX: N39.0 Urinary tract infection, site not specified (principal); R91.1 Solitary pulmonary nodule; L98.9 Disorder of the skin and subcutaneous tissue, unspecified; R10.9 Unspecified abdominal pain; I48.91 Unspecified atrial fibrillation; I11.0 Hypertensive heart disease with heart failure; I50.9 Heart failure, unspecified; I25.10 Atherosclerotic heart disease of native coronary artery without angina pectoris; E78.2 Mixed hyperlipidemia; G30.9 Alzheimer's disease, unspecified; F02.80 Dementia in other diseases classified elsewhere, unspecified severity, without behavioral disturbance, psychotic disturbance, mood disturbance, and anxiety; Z79.01 Long term (current) use of anticoagulants; Z79.82 Long term (current) use of aspirin; Z87.891 Personal history of nicotine dependence
CPT/HCPCS: 36415; 70450; 71250; 74176; 80053; 81001; 82150; 83690; 83735; 84484; 85025; 87086; 87088; 93005; 96360; 99284; A9270; J7030

== ENCOUNTER 2024-03-19 17:32 | Emergency (ER) | payer MEDICARE, MEDICAID, SELFPAY ==
--- NOTE | ~2024-03-19 | XR_ITS ---
XR chest 1V portable Ordering provider: Collin Stone MD History: 73 years Male with . covid . Comparison: February 28, 2024 FINDINGS: MEDIASTINUM: The cardiac silhouette is not enlarged. Postoperative changes in the mediastinum. LUNGS: No pneumothorax. Blunting of the left costophrenic angle suggestive of effusion. Atelectatic c hanges in the lung bases. OTHER: No free air under the diaphragm. Degenerative changes of the spine. IMPRESSION: Blunting of the left costophrenic angle which may indicate effusion versus atelectasis. Reviewed, dictated and finalized at location A. IMPRESSION: Blunting of the left costophrenic angle which may indicate effusion versus atel ectasis.
[2024-03-19 17:41] VITALS: BP 141/86; PULSE 69; RESP 22; TEMP 37.3; O2SAT 100
--- NOTE | 2024-03-19 17:44 | ED.URI ---
HPI - URI/Sore Throat General Chief Complaint: Upper Respiratory Infection Stated Complaint: COVID + Time Seen by Provider: 03/19/24 17:43 Source: patient Mode of arrival: ambulatory Limitations: no limitations History of Present Illness HPI Narrative: 73-year-old male with history of Alzheimer's dementia, generalized anxiety disorder, depression,dyslipidemia, COPD, EMELI,CAD/ CABG/CHF, atrial fibrillation on Xarelto was sent from the group home for -- COVID positive today. Patient tested positive for COVID in June of 2023 -- group home noted a blood pressure of 80/74. His current blood pressure is noted to be 141/86. The patient does not have any complaints. He denied fever. He denies chest pain or shortness of breath. No nausea /vomiting /abdominal pain / diarrhea. Pertinent past history: other ( COVID positive today) Able to tolerate fluids by mouth: Yes Related Data Home Medications Medication Instructions Recorded Confirmed aspirin 81 mg tablet,delayed 81 mg PO DAILY 08/27/19 03/19/24 release (Aspir-) melatonin 10 mg tablet 10 mg PO HS 09/02/19 03/19/24 memantine 10 mg tablet (Namenda) 10 mg PO BID 09/02/19 03/19/24 PreserVision AREDS-2 1 tablet PO DAILY 09/11/22 03/19/24 atorvastatin 20 mg tablet (Lipitor) 20 mg PO DAILY 09/11/22 03/19/24 divalproex 250 mg tablet,delayed 500 mg PO TID 09/18/22 03/19/24 release (Depakote) cholecalciferol (vitamin D3) 50 50 mcg PO DAILY 10/04/22 03/19/24 mcg (2,000 unit) capsule trazodone 50 mg tablet 25 mg PO QHS PRN Sleep 10/31/23 03/19/24 donepezil 10 mg tablet (Aricept) 10 mg PO DAILY 03/04/24 03/19/24 mirabegron 50 mg tablet,extended 25 mg PO DAILY 03/04/24 03/19/24 release 24 hr (Myrbetriq) tamsulosin 0.4 mg capsule (Flomax) 0.4 mg PO DAILY 03/04/24 03/19/24 Allergies Allergy/AdvReac Type Severity Reaction Status Date / Time No Known Allergies Allergy Verified 03/19/24 17:33 Review of Systems Review of Systems: All systems reviewed & are unremarkable except as noted in HPI and below Constitutional: Constitutional: Reports as per HPI and Reports no additional constitutional complaints Eyes: Eyes: Reports as per HPI and Reports no additional eye complaints ENT: Reports system reviewed and no additional complaints, except as documented and Reports as per HPI Cardiovascular: Cardiovascular: Reports as per HPI and Reports no additional cardiovascular complaints Respiratory: Respiratory: Reports as per HPI and Reports no additional respiratory complaints Gastrointestinal: Gastrointestinal: Reports as per HPI and Reports no additional gastrointestinal complaints Genitourinary: Genitourinary: Reports no additional male genitourinary complaints and Reports as per HPI Musculoskeletal: Musculoskeletal: Reports no additional musculoskeletal complaints and Reports as per HPI Integumentary/Breasts: Skin/Breast: Reports system reviewed and no additional complaints, except as docu and Reports as per HPI Comments: chronic venous stasis changes both legs Neurologic: Reports system reviewed and no additional complaints, except as documented and Reports as per HPI Psychiatric: Psychiatric: Reports no additional psychiatric complaints Endocrine: Endocrine: Reports no additional endocrine complaints and Reports as per HPI Hematologic/Lymphatic: Hematologic/Lymphatic: Reports no additional hematologic/lymphatic complaints and Reports as per HPI Allergic/Immunologic: Allergic/Immunologic: Reports no additional allergic/immunologic complaints and Reports as per HPI [facility] Past Medical History Medical History Abdominal aortic aneurysm Status post repair. Alzheimer disease Benign prostatic hyperplasia Chronic anticoagulation Chronic obstructive pulmonary disease Coronary artery disease Lesion of pancreas Mixed hyperlipidemia Obstructive sleep apnea Intolerant to PAP therapy. Paroxysmal atrial flutt
--- NOTE | 2024-03-19 18:28 | PC.NURSE ---
SPOKE WITH DAUGHTER WHO WAS UPDATED ON PT STATUS. PT IS CURRENTLY LYING ON STRETCHER WATCHING TV WITHOUT DISTRESS. PT DENIES ANY NEEDS OR COMPLAINTS. NAD NOTED AT THIS TIME. VS STABLE O2 98% ON RA.
[2024-03-19 19:00] VITALS: BP 138/88; PULSE 78; RESP 18; O2SAT 99
--- NOTE | 2024-03-19 19:08 | PC.NURSE ---
WAS NOTIFIED TO PT STATUS, PT IS LYING ON STRETCHER WATCHING TV WHEN STAFF ARRIV[facility] TO [facility]. PT DENIES ANY COMPLAINTS. PT IS ASSISTED WITH DRESSING AND TO WC. PT IS ALERT UPON DC, NO RESP DISTRESS NOTED.
== END 2024-03-19 19:00 | disposition home or self-care (01) ==
PROVIDERS: Emergency Provider Internal Medicine Critical Care Medicine; PCP Family Medicine
DX: U07.1 COVID-19 (principal); G30.9 Alzheimer's disease, unspecified; F02.80 Dementia in other diseases classified elsewhere, unspecified severity, without behavioral disturbance, psychotic disturbance, mood disturbance, and anxiety; I50.9 Heart failure, unspecified; E78.2 Mixed hyperlipidemia; Z79.899 Other long term (current) drug therapy; Z87.891 Personal history of nicotine dependence
CPT/HCPCS: 71045; 99283

== ENCOUNTER 2024-04-25 13:30 | Outpatient (CLI) | payer MEDICARE, MEDICAID, SELFPAY ==
--- NOTE | ~2024-04-25 | XR_ITS ---
XR wrist RT min 3V Ordering provider: Juan Ramon Lyman DO History: . right wrist pain after bumping wrist several times . Comparison: None. FINDINGS: BONES: No acute fracture or dislocation. No definite scaphoid fracture. JOINT SPACES: Normal. SOFT TISSUES: Normal. IMPRESSION: No acute osseous abnormality right wrist. Reviewed, dictated and finalized at location A.
== END 2024-04-25 13:31 | disposition home or self-care (01) ==
LOC: CHSIMG 13:32
PROVIDERS: PCP Family Medicine; Visit Provider Family Medicine
DX: M25.531 Pain in right wrist (principal)
CPT/HCPCS: 73110

== ENCOUNTER 2024-07-15 11:10 | Outpatient (CLI) | payer MEDICARE, MEDICAID, SELFPAY ==
--- NOTE | ~2024-07-15 | XR_ITS ---
Clinical Indication: Weakness PA and lateral views of the chest: Comparison: 03/19/2024 Findings: There is linear right basilar scarring or atelectasis, otherwise clear lungs. Cardiomedias tinal silhouette is stable. Bones and soft tissues are unremarkable. Impression: Linear right basilar scarring or atelectasis, otherwise clear lungs. Reviewed, dictated and finalized at location . RUCTIONAL INTERVENTIONIST Impression: Linear right basilar scarring or atelectasis, otherwise clear lungs.
[2024-07-15 11:25] LABS: Basophils Absolute Auto 0.04 K/mm3 (0.00-0.10); Basophils Percent Auto 0.7 % (0.0-1.0); Eosinophils Absolute Auto 0.11 K/mm3 (0.02-0.50); Eosinophils Percent Auto 1.9 % (1.0-6.0); Hematocrit 45.2 % (37.0-46.0); Hemoglobin 14.8 g/dL (12.4-15.3); Immature Granulocyte Absolute 0.02 K/mm3 (0.00-0.00); Immature Granulocyte Percent A 0.3 % (0.0-0.0); Lymphocytes Absolute Auto 1.48 K/mm3 (1.10-4.50); Lymphocytes Percent Auto 25.1 % (18.0-42.0); Mean Corpuscular HGB Conc 32.7 g/dL (32-36); Mean Corpuscular Hemoglobin 32.8 pg (27.0-31.0); Mean Corpuscular Volume 100.2 fL (78.0-102.0); Monocytes Absolute Auto 0.64 K/mm3 (0.10-0.90); Monocytes Percent Auto 10.9 % (2.0-11.0); Neutrophils Percent Auto 61.1 % (50.0-70.0); Platelet Count Result 175 K/mm3 (150-420); Red Blood Count 4.51 M/mm3 (4.70-6.10); Red Cell Distribution Width 13.2 % (11.6-14.4); White Blood Count 5.9 K/mm3 (4.8-10.8)
[2024-07-15 12:55] LABS: Alanine Aminotransferase 10 U/L (16-63); Albumin Level 2.9 g/dL (3.4-5.0); Alkaline Phosphatase 77 U/L (46-116); Anion Gap 2 mmol/L (4-12); Aspartate Amino Transferase 16 U/L (15-37); Bilirubin,Total 0.6 mg/dL (0.00-1.00); Blood Urea Nitrogen 20 mg/dL (7-18); Calcium 8.8 mg/dL (8.5-10.1); Carbon Dioxide 36 mmol/L (21-32); Chloride 104 mmol/L (98-108); Estimated Glomerular Filt Rate > 60; Glucose 103 mg/dL (70-99); Osmolality Calculated 296 mOsm/kg (285-295); Potassium 4.6 mmol/L (3.5-5.1); Sodium 142 mmol/L (136-145); Total Protein 5.8 g/dL (6.4-8.2)
== END 2024-07-15 11:11 | disposition home or self-care (01) ==
PROVIDERS: PCP Family Medicine; Visit Provider Family Medicine
DX: R53.1 Weakness (principal); R91.8 Other nonspecific abnormal finding of lung field
CPT/HCPCS: 36415; 71046; 80053; 85025

== ENCOUNTER 2024-11-15 12:39 | Outpatient (NON) | payer MEDICARE, MEDICAID, SELFPAY ==
--- OUTSIDE RECORDS SUMMARY | 2024-11-15 12:45 | XMS_ITS | Clinical Summary ---
Author Organization [facility] Address [address] [place] [address] Phone Care Team Providers Care Yarn Conditioner Name Role Phone Dae Izaguirre Primary Care Provider [phone] Allergies No known active allergies Medications atorvastatin (LIPITOR) 20 mg tablet Take 20 mg by mouth Daily LATE. Active aspirin (ECOTRIN EC) 81 mg Tablet, Delayed Release (E.C.) Take 1 Tablet (81 mg) by mouth daily with breakfast. 09/06/2015 Active MELATONIN ORAL Take 10 mg by mouth late in the day . Active busPIRone (BUSPAR) 15 mg Tablet Take 15 mg by mouth 3 times daily . Active donepezil (ARICEPT) 10 mg tablet Take 10 mg by mouth daily at bedtime. Active divalproex (DEPAKOTE) 500 mg delayed release tablet Take 500 mg by mouth 3 times daily. Active memantine 10 mg tablet Take 10 mg by mouth 2 times daily. Active traZODone (DESYREL) 50 mg tablet Take 50 mg by mouth nightly as needed. Active sertraline (ZOLOFT) 50 mg tablet Take 75 mg by mouth daily. 12/20/2021 Active risperiDONE 1 mg tablet Take 1 mg by mouth daily at bedtime. Active Active Problems Patient Care Coordination No te Formatting of this note migh t be different from the original. Corporate Learning Consultant - Dr. Honorio Hinojosa ([facility]) Labs: [facility] F. [phone] P. [phone] Problem Noted Date Diagnosed Date New onset a-fib 09/12/2022 Generalized weakness 09/12/2022 Acute metabolic encephalopathy 09/11/2022 Elevated d-dimer 09/11/2022 Hyperkalemia 09/11/2022 Atrial flutter with rapid ventricular response 0 09/11/2022 Anxiety 01/02/2019 Dementia without behavioral disturbance 01/03/20 Cholecystitis 10/29/2018 Choledocholithiasis 10/29/2018 Pancreatic cystic lesion 10/29/2018 CAD (coronary atherosclerotic disease) 6 Atherosclerosis of [place] co ronary artery of [place] heart with unstable angina pectoris 08/28/2015 CONNORS (dyspnea on exertion) 08/27/2015 Precordial pain 08/27/2015 Pure hypercholesterolemia Hypovolemic shock Ileus Resolved Problems Problem Noted Date Diagnosed Date Resolved Date Abdominal aortic aneurysm (A AA) without rupture 10/29/2018 03/05/2020 Abdominal aortic aneurysm (A AA) greater than 5.5 cm in diameter in male 08/27/2015 03/05/2020 Hyperlipidemia 08/27/2015 10/29/2018 Immunizations Immunization Administration Dates Next Due (PREVNAR 13)(6 WKS UP) PNEUM OCOCCAL CONJUGATE (PCV13) 0.5 ML, IM 10/29/2018 Influenza Seasonal Unspecified Formulation IM ,08/27/2015 Family History Medical History Relation Name Comments Heart Disease Mother Celiac Disease Neg Hx Crohn's Disease Neg Hx Inflammatory Bowel Disease Neg Hx Ulcerative Colitis Neg Hx Relation Name Status Comments Mother Social History Tobacco Use Types Packs/Day Years Used Date Smoking Tobacco: Former Cigarettes 1.5 50 0 08/27/1962 - 08/27/2012 Smokeless Tobacco: Never Alcohol Use Standard Drinks/Week Comments Not Currently 0 (1 standard drink = 0.6 oz pure alcohol) a few beer everyday, quit 10/2018 Sex and Gender Information Value Date Recorded Sex Assigned at Not on file Legal Sex Male 11:59 AM OUTPATIENT PSYCHIATRIST Gender Identity Not on file Sexual Orientation Not on file Last Filed Vital Signs Vital Sign Reading Time Taken Comments Blood Pressure 128/74 10/03/2022 11:04 AM OUTPATIENT PSYCHIATRIST Pulse 68 10/03/2022 11:04 AM OUTPATIENT PSYCHIATRIST Temperature 36.4 C (97.5 F) 09/15/2022 6:50 AM OUTPATIENT PSYCHIATRIST Respiratory Rate 19 09/15/2022 6:50 AM OUTPATIENT PSYCHIATRIST Oxygen Saturation 96% 10/03/2022 11:04 AM OUTPATIENT PSYCHIATRIST Inhaled Oxygen Concentration - - Weight 82.6 kg (182 lb) 10/03/2022 11:04 AM OUTPATIENT PSYCHIATRIST Height 172.7 cm (5' 8 ) 10/03/2022 11:04 AM OUTPATIENT PSYCHIATRIST Body Mass Index 27.67 10/03/2022 11:04 AM OUTPATIENT PSYCHIATRIST Plan of Treatment Health Maintenance Due Date Last Done Comments DTAP/TDAP/TD VACCINES (1 - Tdap) 1967 ZOSTER VACCINE (1 of 2) 1998 PNEUMOCOCCAL VACCINE 50+ YEA RS (2 of 2 - PPSV23) 10/30/2019 10/29/2018 RSV VACCINE (60+ or ) (1 - 1-dose 75+ series) 2023 INFLUENZA VACCINE (#1) 2024 8, 05/02/2017, 08/27/2015 Medical Devices Implanted Type Area Elementary Education Tutor Device Identifier Shelf Expiration Date Model / Serial / Lot Sealant Hemaflex [id number] - [id number] Implanted:Qty : 1 on 08/30/2015 by Monico Fisher MD at [facility] Biological N/A: Heart [employer] 12/08/2017 [id number] / / [id number] Stent Pncrtc Frmn Flx 5fr 5cm 6552 - [id number] Implanted:Qty : 1 on 10/29/2018 by Vinny Hua MD at [facility] Stent N/A: Pancreas [facility] [id number] 05/13/2023 6552 / / [id number] Description:in pancreatic du ct Graft Vasc Hmshld Gold [id number] - [id number] Implanted:Qty : 1 on 01/01/2019 by Regis Davey MD at [facility] Tissue N/A: Aorta [employer] 18 mm x 30 cm 05/12/2020 [id number] / [id number] Description: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 [id number] - [id number] Implanted:Qty : 2 on 08/30/2015 by Monico Fisher MD at [facility] N/A: Heart [employer] 03/12/2020 [id number] / / [id number] [place] [address] [facility] [id number] Advance Directives For more information, please contact: [phone] Documents on File Type Date Recorded Patient Skin Lap Bonder Expl anation Advance Directive POA 01/01/2019 4:54 AM A dvance Directive POA Advance Directive Living Will 01/01/2019 4:54 AM * NO CPR (In Event of Cardiopulmonary Arrest) (Latest Code Status on File) Date Activated Date Inactivated Comments 09/11/2022 8:59 PM 09/15/2022 3:45 PM Question Answer Comments Mechanical Ventilation (for respiratory distress) - Invasive (i.e. intubation): No Mechanical Ventilation (for respiratory distress) - Non-Invasive (i.e. BiPAP, CPAP): Yes * Full Code Date Activated Date Inactivated Comments 09/11/2022 8:54 PM 09/11/2022 8:59 PM * Full Code Date Activated Date Inactivated Comments 01/01/2019 2:07 PM 01/06/2019 3:03 PM * Full Code Date Activated Date Inactivated Comments 01/01/2019 11:42 AM 01/01/2019 2:06 PM * Full Code Date Activated Date Inactivated Comments 01/01/2019 8:03 AM 01/01/2019 11:42 AM Care Teams Yarn Conditioner Relationship Specialty Start Date End Date Dae Izaguirre DO [address] [facility] [address] [place] [address] PCP - General Internal Medicine 12/17/18
--- OUTSIDE RECORDS SUMMARY | 2024-11-15 12:45 | XMS_ITS | Continuity of Care Document ---
Author Organization [facility] [place] [address] [place] [phone] Phone Care Team Providers Care Structural Steel Erector Name Role Phone Wilmer Lindquist MD Unavailable Unavailable Allergies, Adverse Reactions, Alerts Substance Reaction Status Criticality No Known Allergies Active No Inform ation Medications Medication Instructions Dosage Effective Dates (start - stop) Status Comments prednisolone 1 %-gatifloxacin 0.5 %-bromfenac 0.075 % eye drops,suspen instill 1 drop in operative eye 4 times a day x 2 weeks, then 2 times per day for 2 weeks, then stop - Active Ocuvite Eye Health 50 mg-15 unit-4.5 mg-2.5 mg chewable tablet take one tablet daily - Active melatonin 10 mg capsule take one tablet daily - Active sertraline 25 mg tablet take 1 tablet by oral route every day 25 MG - Active bupropion HCl XL 300 mg 24 hr tablet, extended release take 1 tablet by oral route every day 300 MG - Active atorvastatin 20 mg tablet take 1 tablet by oral route every day 20 MG - Active aspirin 81 mg tablet,delayed release take 1 tablet by oral route every day 81 MG - Active buspirone 15 mg tablet take 1 tablet by oral route 2 times every day 15 MG - Active divalproex ER 250 mg tablet,extended release 24 hr take 2 tablet by oral route every day 500 MG - Active memantine 10 mg tablet take 1 tablet by oral route 2 times every day 10 MG - Active donepezil 10 mg tablet take 1 tablet by oral route every day in the evening 10 MG - Active Vigamox 0.5 % eye drops instill 1 drop by ophthalmic route 4 times every day into operative eye for 2 weeks, then stop - No Longer Active ok to substitute Polytrim 5ml with same directions prednisolone acetate 1 % eye drops,suspension instill 1 drop by ophthalmic route 4 times every day into operative eye for 2 weeks, then 2 times per day for 2 weeks, then stop - No Longer Active ketorolac 0.5 % eye drops instill 1 drop in operative eye 4 times every day for 2 weeks, then 2 times per day for 2 weeks, then stop - No Longer Active Vigamox 0.5 % eye drops instill 1 drop by ophthalmic route 4 times every day into operative eye for 2 weeks, then stop - No Longer Active ok to substitute Polytrim 5ml with same directions melatonin 10 mg capsule - No Longer Active Ocuvite Eye Health 50 mg-15 unit-4.5 mg-2.5 mg chewable tablet - No Longer Active Procedures Procedure Date No Charge Refraction Post-op Follow-up Visit Post-op Follow-up Visit Post-op Follow-up Visit Remove Cataract, Insert Lens IOLMaster-Professional No Charge Refraction Post-op Follow-up Visit Post-op Follow-up Visit Remove Cataract, Insert Lens IOLMaster-Professional IOLMaster-Technical No Charge Orbscan No Charge Refraction No Charge Optomap Fundus Photos 021 SCODI, Retina Office/outpatient Visit, [facility] Advance Directives Directive Yes / No Effective Date File Name No Information Encounters Encounter Description Practice Location Reason(s) For Visit Diagnoses Date Provider Providers Copied on Encounter [facility], [address], [place], [place], [address], [place] tel:[phone] SEC Chuck PANITER Professional 1 mo CE PO (03/09/21) (chief complaint) Post op visit 1 Lexa Guillen. [address], [address], [place], [place], [address], . tel:[phone] Referring Provider: Marisol Aiken OD, [address] [facility], [place], [address]. tel:[phone] [facility], [address], [place], [place], [address], tel:[phone] SEC Chuck PAINTER Professional 1 week s/p PCIOL (chief complaint) Post op visit 1 Lexa Guillen. [address], [address], [place], [place], [address], [place]. tel:[phone] Referring Provider: Marisol Aiken OD, [address] [facility], [place], [address]. tel:[phone] [facility], [address], [place], [place], [address], [place] tel:[phone] SEC Chuck PAINTER Professional Post-Op (chief complaint) Post op visit 1 Lexa Guillen. [address], [place], [place], [address], [place]. tel:[phone] Referring Provider: Marisol Aiken OD, [address] [facility], [place], [address]. tel:[phone] [facility], [address], [place], [place], [address], [place] tel:[phone] [facility] No Information 1 Lexa Guillen. [address], [address], [place], [place], [address], [place]. tel:[phone] Referring Provider: Marisol Aiken OD, [address] [facility], [place], [address]. tel:[phone] [facility], [address], [place], [place], [address], [phone] SEC Chuck PAINTER Professional No Information 1 Lexa Guillen. [email or web address], [address], [place], [address], [place]. tel:[phone] Referring Provider: Marisol Aiken OD, [address] [facility], [place], [address]. tel:[phone] [facility], [address], [place], [place], [address], [place] tel:[phone] SEC Chuck PAINTER Professional No Information 1 Lexa Guillen. [email or web address], [address], [address], [place]. tel:[phone] [facility], [address], [place], [place], [address], [place] tel:[phone] SEC Chuck PAINTER Professional Post-Op (chief complaint) Post op visit 1 Lexa Guillen. [address], [address] [place], [place], [address], [place]. tel:[phone] Referring Provider: Marisol Aiken OD, [address] [facility], [place], [address]. tel:[phone] [facility], [address], [place], [place], [address], [place] [phone] SEC Amanda Marin No Information 1 Demian Rosen. [address], [place], [place], [address], [place]. tel:[phone] [facility], [address], [place], [place], [address], [place] tel:[phone] SEC Chuck PAINTER Professional 1 day s/p PCIOL (chief complaint) Post op visit 1 Lexa Guillen. [address], [address] [place], [address], [place]. tel:[phone] Referring Provider: Marisol Aiken OD, [address] [facility], [place], [address]. tel:[phone] [facility], [address], [place], [place], [address], [place] tel:[phone] [facility] No Information 1 Lexa Guillen. [address], [address] [place], [address], [place]. tel:[phone] Referring Provider: Marisol Aiken OD, [address] [facility], [place], [address]. tel:[phone] [facility], [address], [place], [place], [address], tel:[phone] SEC Chuck PAINTER Professional No Information 1 Lexa Guillen. [address], [address] [place], [address], [place]. tel:[phone] Referring Provider: Marisol Aiken OD, [address] [facility] [facility], [place], [address]. tel:[phone] [facility], [address], [place], [place], [address], [place] tel:[phone] [place] No Information 1 Lexa Guillen. [address], [address] [place], [address], [place]. tel:[phone] Office/outpa tient Visit, [facility], [address], [place], [place], [address], [place] tel:[phone] SEC [facility] Professional Cataract evaluation (chief complaint) Combined forms of age-related cataract, bilateralNexd tve age-related mclr degn, bilateral, early dry stageVitreous degeneration, right eye 1 Lexa Guillen. [address], [address], [place], [place], [address], [place]. tel:[phone] Referring Provider: Marisol Aiken OD, [address] [facility], [place], [address]. tel:[phone] [facility], [address], [place], [place], [address], [place] tel:[phone] SEC Amanda Chaparro No Information 1 Lexa Guillen. [address], [address], [place], [place], [address], [place]. tel:[phone] Family History Family Member Type Diagnosis Age At Onset Problem Family history of degenerati ve disorder of macula Problem Family history of glaucoma Payers Payer name Insurance type Covered alliance party ID Authoriza tion(s) No Information Social History Type Description Quantity Date Captured Comments Alcohol Use Details Caffeine Use Details Tobacco Use Status Ex-cigarette smoker 021 Smoking Status Former smoker Smoking Tobacco Use Details Cigarette: Age Started: 13, Age Stopped: 60, Years Used 45 Cigarette: No Details Available Sex Male Chief Complaint And Reason For Visit From encounter dated '04/07/2021 09:45'. 1 mo CE PO (03/09/21) (chief complaint). Description: The 70 year old male presents for evaluation of 1 mo CE PO (03/09/21) in the left eye. Pt reports he is using Pred/Gatifloxacin/Bromfenac BID OS. Pt reports OS is doing good and he can see better since CE. Pt was referred by Dr. Aiken. Reason For Referral Reason For Referral No Information Plan Of Treatment Date Type Action Status Patient Education Cataracts: Care Instruc tions completed History Of Present Illness Encounter Date Complaint History Of Prese nt Illness 1 mo CE PO (03/09/21) The 70 year old male presents for evaluation of 1 mo CE PO (03/09/21) in the left eye. Pt reports he is using Pred/Gatifloxacin/Bromfenac BID OS. Pt reports OS is doing good and he can see better since CE. Pt was referred by Dr. Aiken. 1 week s/p PCIOL The 70 year old male presents for evaluation of 1 week s/p PCIOL in the left eye. (03/09/21). Patient states VA seems good. Patient using p/o gtts as directed. Post-Op The 70 year old male presents for a 1 day post op CE OS. Patient is using the combo drop Vsfr-kfmgrxqglujy-Lwjcraipj qid OS. Patient denies any pain or discomfort. Post-Op The 70 year old male presents for a 2 week post op CE OD 02/09/21. Patient is using Pred and Ketorolac bid OD. Patient states OD is doing good. Patient wishes to proceed with CE OS. Patient is bothered by glare driving at night. Patient is having a hard time reading small print. 1 day s/p PCIOL The 70 year old male presents for evaluation of 1 day s/p PCIOL in the right eye. Patient states VA seems better. Patient instructed to use Pred, Ket, and Vig as well as use of eye shield. Cataract evaluation The 70 year old male presents for a cataract evaluation ou per Dr. Aiken. Patient avoids driving at night due to glare x 2 years. Patient is having a hard time reading small print. Patient states he has macular degeneration and takes ocuvite. Functional Status Date Functional Assessmen t No Information Instructions Date Instruction Additional Infor merle Impression/Plan Impression/Plan Impression/Plan Impression/Plan Impression/Plan Impression/Plan Assessments Type Assessment Date assessment Post op visit Patient Care Teams Name Effective Dates (start - stop) Status Members No Information
--- OUTSIDE RECORDS SUMMARY | 2024-11-15 12:45 | XMS_ITS | Clinical Summary ---
Author Organization [facility] Address [address] [place] [address] Care Team Providers Care [employer] Task [employer] Planners Name Role Phone Dae Izaguirre Primary Care Provider [phone] Source Comments [facility],non-owned Affiliates and Associated Physician Practices is amultiple site organization consisting of ambulatory clinics and hospital sitesin [place], [place], [place] and [place]. This disclosure is being madepursuant to the Care Everywhere program and may not contain all information available regarding this patient. Last updated 18.[facility] Allergies No known active allergies Medications * Be aware that medications may not be up to date on this document. Alwaysverify current medications with the patient. Medication Sig Dispensed Refills Start Date End Date Status PARoxetine (PAXIL) 20 MG tablet Take 20 mg by mouth 2 times daily Active buPROPion XL 24hr (WELLBUTRIN-XL) 300 MG tablet 04/05/2019 Active atorvastatin (LIPITOR) 20 MG tablet Take 20 mg by mouth Active aspirin EC (ECOTRIN) 81 MG tablet Take 81 mg by mouth 09/06/2015 Active Melatonin 10 MG Take 10 mg by mouth Active busPIRone (BUSPAR) 15 MG tablet Take 15 mg by mouth Active cetirizine (ZYRTEC) 10 MG tablet Take 10 mg by mouth once daily Active donepezil (ARICEPT) 10 MG tablet Take 10 mg by mouth at bedtime Active Multiple Ddfnddne-Eikorhnk-YE (OCUVEL) 0.5 MG CAPS Acti ve Active Problems No known active problems Social History Tobacco Use Types Packs/Day Years Used Date Smoking Tobacco: Former Smokeless Tobacco: Never Alcohol Use Standard Drinks/Week Comments Never 0 (1 standard drink = 0.6 oz pur e alcohol) AUDIT-C Answer Date Recorded Frequency of Alcohol Consumption Never 04/21/2019 Average Number of Drinks Not on file 019 Frequency of Binge Drinking Not on file 04/2019 Sex and Gender Information Value Date Recorded Sex Assigned at Not on file Gender Identity Not on file Sexual Orientation Not on file Last Filed Vital Signs Vital Sign Reading Time Taken Comments Blood Pressure 104/60 04/21/2019 12:53 PM CDT Pulse - - Temperature - - Respiratory Rate - - Oxygen Saturation - - Inhaled Oxygen Concentration - - Weight 79.8 kg (176 lb) 04/21/2019 12:53 PM CDT Height 170.2 cm (5' 7 ) 04/21/2019 12:53 PM CDT Body Mass Index 27.57 04/21/2019 12:53 PM CDT Plan of Treatment Health Maintenance Due Date Last Done Comments HEPATITIS C SCREENING 04/10/1966 DTAP/TDAP/TD VACCINES (1 - Tdap) 1967 PNEUMOCOCCAL VACCINE 50+ (1 of 1 - PCV) 1998 ZOSTER VACCINE (1 of 2) 1998 Respiratory Syncytial Virus (RSV) Vaccine Pt: or over 60 yrs (1 - 1-dose 75+ series) 2023 COVID-19 VACCINE ( - 2023-2 5 season) 2024 INFLUENZA VACCINE (#1) 2024 7, 08/27/2015 DEPRESSION SCREENING 08/13/2024 MEDICARE AWV CALENDAR YEAR 2024 HEPATITIS B VACCINE Aged Out No longe r eligible based on patient's age to complete this topic HIB VACCINE Aged Out No longer eligi ble based on patient's age to complete this topic HPV VACCINE Aged Out No longer eligi ble based on patient's age to complete this topic MENINGOCOCCAL (Group B) VACCINE SHARED DECISION-MAKING Aged Out No longer eligible based on patient's age to complete this topic MENINGOCOCCAL GROUPS A/C/Y/W VACCINE Aged Out No longer eligible b ased on patient's age to complete this topic Care Teams [employer] Task [employer] Planners Relationship Specialty Start Date End Date Dae Izaguirre DO [address] [place], [place] [id number] PCP - General 04/21/19
--- OUTSIDE RECORDS SUMMARY | 2024-11-15 12:45 | XMS_ITS | Clinical Summary ---
Author Organization [facility] Address [address] [place] [address] Care Team Providers Care Animal Control Specialist Name Role Phone Gino Woodson MD Primary Care Provider [phone] Medications ELIQUIS 5 MG tablet Take 1 tablet (5 mg total) by mouth 2 (two) times daily. 10/29/19 23 Active atorvastatin (LIPITOR) 20 MG tablet Take 1 tablet (20 mg total) by mouth. Active busPIRone (BUSPAR) 30 MG tablet Take 1 tablet (30 mg total) by mouth 3 (three) times daily. Active divalproex EC (DEPAKOTE) 500 MG tablet Take 1 tablet (500 mg total) by mouth 3 (three) times daily. Active donepezil (ARICEPT) 10 MG Tab Take 1 tablet (10 mg total) by mouth. Active melatonin 10 MG tablet Take 1 tablet (10 mg total) by mouth nightly at bedtime. Active memantine (NAMENDA) 10 MG tablet Take 1 tablet (10 mg total) by mouth 2 (two) times daily. Active Multiple Vitamins-Minerals (OCUVEL) Cap Take 1 tablet by mouth daily. Active risperiDONE (RISPERDAL) 1 MG tablet Take 1 tablet (1 mg total) by mouth nightly at bedtime. Active sertraline (ZOLOFT) 50 MG tablet Take 1.5 tablets (75 mg total) by mouth daily. 12/21/19 22 Active traZODone (DESYREL) 50 MG tablet Take 1 tablet (50 mg total) by mouth nightly at bedtime. Active acetaminophen (TYLENOL) 325 MG tabletIndications:F ever,Pain Take 2 tablets (650 mg total) by mouth every 6 (six) hours as needed for Pain. Indications: Fever, Pain Active aspirin EC 81 MG tabletIndications:P rophylaxis Take 1 tablet (81 mg total) by mouth daily. Indications: Preventative Treatment Active tamsulosin (FLOMAX) 0.4 MG CapIndications:Kasi gn Prostatic Hypertrophy Take 1 capsule (0.4 mg total) by mouth daily. Indications: Benign Enlargement of Prostate Active Cholecalciferol 50 MCG (1999 [place]) TabIndications:Nutr itional Support Take 1 tablet by mouth daily. Indications: Nutritional Support Active mirabegron ER (MYRBETRIQ) 25 MG 24 hr tabletIndications:P rophylaxis Take 1 tablet (25 mg total) by mouth daily. Indications: Preventative Treatment Active iron polysaccharides (NIFEREX) 150 MG capsule Take 1 capsule (150 mg total) by mouth daily. Give 2 hours apart from from calcium Active Active Problems Problem Noted Date Diagnosed Date Hypovolemic shock ([facility]) 12/12/2022 Ileus ([facility]) 12/12/2022 Pure hypercholesterolemia 12/12/2022 New onset a-fib ([facility]) 09/12/2022 Generalized weakness 09/12/2022 Acute metabolic encephalopathy 09/11/2022 Atrial flutter with rapid ve ntricular response ([facility]) 09/11/2022 Elevated d-dimer 09/11/2022 Hyperkalemia 09/11/2022 Anxiety 01/02/2019 Dementia without behavioral disturbance 01/03/20 19 Cholecystitis 10/29/2018 Choledocholithiasis 10/29/2018 Pancreatic lesion ([facility] 10/29/2018 CAD (coronary atherosclerotic disease) 6 Atherosclerosis of [place] artery of [place] with unstable angina pectoris ([facility]) 08/28/2015 CONNORS (dyspnea on exertion) 08/27/2015 Precordial pain 08/27/2015 Social History Tobacco Use Types Packs/Day Years Used Date Smoking Tobacco: Never Assessed Sex and Gender Information Value Date Recorded Sex Assigned at Not on file Legal Sex Male 9:30 AM CDT Gender Identity Not on file Sexual Orientation Not on file Last Filed Vital Signs Vital Sign Reading Time Taken Comments Blood Pressure 119/68 01/02/2023 4:00 PM CDT Pulse 63 01/02/2023 4:00 PM CDT Temperature 36.7 C (98 F) 01/02/2023 4:00 PM CDT Respiratory Rate 16 01/02/2023 4:00 PM CDT Oxygen Saturation 99% 01/02/2023 4:00 PM CDT Inhaled Oxygen Concentration - - Weight 61.8 kg (136 lb 3.2 oz) 01/02/2023 4:00 P M CDT Height - - Body Mass Index - - Plan of Treatment Health Maintenance Due Date Last Done Comments ASCVD LDL 1948 ASCVD Statin 1948 Hepatitis C 1966 DTaP, Tdap and Td Vaccines ( 1 - Tdap) 1967 Zoster Vaccines (1 of 2) 1998 Annual Medicare Wellness Visit 2013 Pneumococcal Vaccine: 65+ Years (2 of 2 - PPSV23 or PCV20) 12/24/2018 10/29/2018 RSV Immunization or 60+ Years (1 - 1-dose 75+ series) 2023 COVID-19 Vaccine ( - 2023-2 5 season) 2024 Influenza Adult (#1) 2024 05/02/2017, 08/27/2015 PHQ-2 (Physician [place]) 08/13/2024 Meningococcal B Vaccine Aged Out No l onger eligible based on patient's age to complete this topic Meningococcal Vaccine Aged Out No dionte alma eligible based on patient's age to complete this topic RSV Immunizations Under 20 Months Aged Out No longer eligible b ased on patient's age to complete this topic Insurance [place] [id number] [facility] Care Teams Animal Control Specialist Relationship Specialty [place] [address] [place] [address] PCP - General FAMILY PRACTICE 12/12/22
[2024-11-15 12:52] LABS: Add Urine Microscopic? NO; Appearance Urine Clear (Clear); Bilirubin Urine Negative (Negative); Blood Urine Negative (Negative); Color Urine Light Yellow (Yellow); Glucose Urine UA Negative (Negative); Ketones Urine Negative (Negative); Leukocyte Esterase Ur Negative LEU/UL (Negative); Nitrate Urine Negative (Negative); Protein Urine Negative (Negative); Urobilinogen Urine 0.2 mg/dL (0.2-1.0); pH Urine 5.5 (5.0-8.0)
== END 2024-11-15 12:40 | disposition home or self-care (01) ==
LOC: CHSLAB 12:43
PROVIDERS: PCP Family Medicine; Visit Provider Family Medicine
DX: R30.0 Dysuria (principal); R41.82 Altered mental status, unspecified
CPT/HCPCS: 81003

== ENCOUNTER 2024-11-27 20:55 | Emergency (ER) | payer MEDICARE, MEDICAID, SELFPAY ==
--- NOTE | ~2024-11-27 | CT_ITS ---
CT cervical spine wo con Ordering provider: Benji Mccabe MD History: . fall, hit head, on blood thinner . Comparison: None. Technique: CT of the cervical spine was performed without contrast. Sagittal and coronal reformatted images were also obtained and reviewed. Automated exposure control and iterative reconstruction desi hnique were employed. The dose-length product was 533.72 mGy-cm. FINDINGS: VERTEBRAE: Bony fragment seen near to the spinous process of C7 which is most likely nonunited apophy sis. Evaluation for tenderness is advised. Otherwise, No subluxation or acute fracture. The occipital condyles are intact. DISC SPACES: Narrowing of the disc C5-C6. Multilevel facet joint disease. Narrowing of the right foramen at the level of C3-C4. PARASPINOUS SOFT TISSUES: Bilateral carotid calcification. 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 Clinical ev aluation for tenderness in the area advised. If warranted MRI is advised. Otherwise, No acute osseous abnormality cervical spine. Degenerative disc disease at C5-C6. Multilevel facet joint disease. Reviewed, dictated and finalized at location A. 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 Clinical evaluation for tenderness in the area advised. If warranted MRI is advised. Otherwise, No acute osseous abnormality cervical spine. Degenerative disc disease at C5-C6. Multilevel facet joint disease.
--- NOTE | ~2024-11-27 | CT_ITS ---
CT brain wo con Ordering provider: Benji Mccabe MD History: 74 years Male with . head and neck injury, fall, hit head, on blood thinner . Comparison: March 04, 2024 Technique: CT of the head without contrast. Radiation reduction technique utilized.The dose-length pr oduct was 756.67 mGy-cm. FINDINGS: BRAIN PARENCHYMA AND CSF SPACES: Mild leukoaraiosis and diffuse cortical atrophy. Mild atheromatous d isease. No midline shift, mass effect or hemorrhage. The brain parenchyma and CSF spaces are otherwi se normal. Empty sella turcica. Intracranial VISUALIZED PARANASAL SINUSES: Well aerated. MASTOIDS: Well aerated. BONES: The bones appear intact. SOFT TISSUES: Visualized nasopharynx is normal. Superficial soft tissues are normal. IMPRESSION: No acute intracranial findings. Reviewed, dictated and finalized at location A.
--- OUTSIDE RECORDS SUMMARY | 2024-11-27 20:57 | XMS_ITS | Continuity of Care Document ---
Author Organization [employer] [facility] Address [address] [place] [phone] Phone Care Team Providers Care Loader Magazine Grinder Name Role Phone Wilmer Lindquist MD Unavailable [...] Fundus Photos 021 SCODI, Retina Office/outpatient Visit, [facility] Advance Directives Directive Yes / No Effective Date File Name No Information Encounters Encounter Description Practice Location Reason(s) For Visit Diagnoses Date Provider Providers Copied on Encounter [facility], [address], [place], [place], [id number], [place] tel:[phone] SEC Chuck PAINTER Professional 1 mo CE PO (03/09/21) (chief complaint) Post op visit 1 Lexa Guillen. [address], [address], [place], [place], [address], . tel:[phone] Referring Provider: Marisol Aiken OD, [address] [facility], [place], [address]. tel:[phone] [facility], [address], [place], [place], [address], tel:[phone] SEC Chuck PAINTER Professional 1 week s/p PCIOL (chief complaint) Post op visit 1 Lexa Guillen. [address], [address], [place], [place], [address], [place]. tel:[phone] Referring Provider: Marisol Aiken OD, [address] [facility], [place], [address]. tel:[phone] [facility], [address], [place], [place], [address], [place] tel:[phone] SEC Chuck APINTER Professional Post-Op (chief complaint) Post op visit 1 Lexa Guillen. [address], [address], [place], [place], [address], [place]. tel:[phone] Referring Provider: Marisol Aiken OD, [address] [facility], [place], [address]. tel:[phone] [facility], [address], [place], [place], [address], [place] tel:[phone] [facility] No Information 1 Lexa Guillen. [address], [address], [place], [place], [address], [place]. tel:[phone] Referring Provider: Marisol Aiken OD, [address] [facility], [place], [address]. tel:[phone] [facility], [address], [place], [place], [address], [phone] SEC Chuck PAINTER Professional No Information 1 Lexa Guillen. [address], [address], [address], [place]. tel:[phone] Referring Provider: Marisol Aiken OD, [address] [facility], [place], [address]. tel:[phone] [facility], [address], [place], [place], [address], [place] tel:[phone] SEC Chuck PAINTER Professional No Information 1 Lexa Guillen. [address], [address], [address], [place]. tel:[phone] [facility], [address], [place], [place], [address], [place] tel:[phone] SEC Chuck PAINTER Professional Post-Op (chief complaint) Post op visit 1 Lexa Guillen. [address], [address], [address], [place]. tel:[phone] Referring Provider: Marisol Aiken OD, [address] [facility], [place], [address]. tel:[phone] [facility], [address], [place], [place], [address], [place] [phone] SEC Amanda Marin No Information 1 Demian Rosen. [address], [address], [place], [place], [address], [place]. tel:[phone] [facility], [address], [place], [place], [address], [place] tel:[phone] SEC Chuck PAINTER Professional 1 day s/p PCIOL (chief complaint) Post op visit 1 Lexa Guillen. [address], [address], [address], [place]. tel:[phone] Referring Provider: Marisol Aiken OD, [address] [facility], [place], [address]. tel:[phone] [facility], [address], [place], [place], [address], [place] tel:[phone] [facility] No Information 1 Lexa Guillen. [address], [address], [address], [place]. tel:[phone] Referring Provider: Marisol Aiken OD, [address] [facility], [place], [address]. tel:[phone] [facility], [address], [place], [place], [address], tel:[phone] SEC Chuck PAINTER Professional No Information 1 Lexa Guillen. [address], [address], [address], [place]. tel:[phone] Referring Provider: Marisol Aiken OD, [address] [employer] [facility], [place], [address]. tel:[phone] [facility], [address], [place], [place], [address], [place] tel:[phone] [place] No Information 1 Lexa Guillen. [address], [address], [address], [place]. tel:[phone] Office/outpa tient Visit, [facility], [address], [place], [place], [address], [place] tel:[phone] SEC [facility] Professional Cataract evaluation (chief complaint) Combined forms of age-related cataract, bilateralNexd tve age-related mclr degn, bilateral, early dry stageVitreous degeneration, right eye 1 Lexa Guillen. [address], [place], [place], [address], [place]. tel:[phone] Referring Provider: Marisol Aiken OD, [address] [facility], [place], [address]. tel:[phone] [facility], [address], [place], [place], [address], [place] tel:[phone] SEC Amanda Chaparro No Information 1 Lexa Guillen. [address], [place], [place], [address], [place]. tel:[phone] Family History Family Member Type Diagnosis Age At Onset Problem Family history of degenerati ve disorder of macula Problem Family history of glaucoma Payers Payer name Insurance type Covered constitution party ID Authoriza tion(s) No Information Social [...] OS. Patient is using the combo drop Hqnn-zdapzjdswplw-Fmehrkanb qid OS. Patient denies any pain or [...]
--- OUTSIDE RECORDS SUMMARY | 2024-11-27 20:57 | XMS_ITS | Clinical Summary ---
Author Organization [facility] Address [address] [place] [address] Care Team Providers Care Supervisor Advertising Dispatch Clerks Name Role Phone Gino Woodson MD Primary Care Provider [phone] Medications ELIQUIS 5 MG tablet Take 1 [...] Problem Noted Date Diagnosed Date Hypovolemic shock ([facility]) 12/12/2022 Ileus ([facility]) 12/12/2022 Pure hypercholesterolemia 12/12/2022 New onset a-fib ([facility]) 09/12/2022 Generalized weakness 09/12/2022 Acute metabolic encephalopathy 09/11/2022 Atrial flutter with rapid ve ntricular response ([facility]) 09/11/2022 Elevated d-dimer 09/11/2022 Hyperkalemia 09/11/2022 Anxiety 01/02/2019 Dementia without behavioral disturbance 01/03/20 19 Cholecystitis 10/29/2018 Choledocholithiasis 10/29/2018 Pancreatic lesion ([facility]) 10/29/2018 CAD (coronary atherosclerotic disease) 6 Atherosclerosis of [place] co ronary artery of [place] heart with unstable angina pectoris ([facility]) 08/28/2015 CONNORS (dyspnea on exertion) 08/27/2015 Precordial [...] Annual Medicare Wellness Visit 2013 Pneumococcal Vaccine: 50+ Ye ars (2 of 2 - PPSV23 or PCV20) 12/24/2018 10/29/2018 RSV Immunization or 60+ Years (1 - 1-dose 75+ series) 2023 COVID-19 Vaccine ( - 2023-2 5 season) 2024 PHQ-2 (Physician Java) 08/13/2024 Meningococcal B Vaccine Aged Out No l onger eligible based on patient's age to complete this topic Meningococcal Vaccine Aged Out No dionte alma eligible based on patient's age to complete this topic RSV Immunizations Under 20 Months Aged Out No longer eligible based on patient's age to complete [place] [address] [facility] [address] [facility] Member Subscriber Plan / Payer (Ef fective 2022-Present) Name:David Martinez Relation to Subscriber:Self Name:David Martinez Payer ID:[id number] (NAIC) Type:Not on file Address: [address] [place] [address] Care Teams Supervisor Advertising Dispatch Clerks Relationship Specialty [place] [address] [place] [address] PCP - General FAMILY PRACTICE 12/12/22
--- OUTSIDE RECORDS SUMMARY | 2024-11-27 20:57 | XMS_ITS | Clinical Summary ---
Author Organization [facility] [employer] Address [address] [place] [address] Care Team Providers Care Net Repairer Name Role Phone Dae Izaguirre Primary Care Provider [phone] Source Comments [facility] [employer]non-owned Affiliates and Associated Physician Practices is amultiple site organization consisting of ambulatory clinics and hospital sitesin [place], [place], [place] and [place]. This disclosure is being madepursuant to the Care Everywhere program and may not contain all information available regarding this patient. Last updated 18.[facility] [employer] Allergies No known active allergies Medications * This document contains information received from the source organization and may not represent a complete record from that organization. * Be aware that medications may not be up to date on this document. Alwaysverify current medications with the patient. PARoxetine (PAXIL) 20 MG tablet Take 20 mg by mouth 2 times daily Active buPROPion XL 24hr (WELLBUTRIN-XL) 300 MG tablet 04/05/2019 Activ e atorvastatin (LIPITOR) 20 MG tablet Take 20 [...] mg by mouth at bedtime Active Multiple Vitamins-Minera ls-FA (OCUVEL) 0.5 MG CAPS Active Active Problems No known active problems Social [...] at Not on file Legal Sex Male 11:18 AM CDT Gender Identity Not on file [...] - 1-dose 75+ series) 2023 COVID-19 VACCINE (1 - 2023-2 5 season) 2024 DEPRESSION SCREENING 08/13/2024 MEDICARE AWV CALENDAR YEAR 2024 INFLUENZA VACCINE (Season Ended) 2025 05/02/2017, 08/27/2015 HEPATITIS B VACCINE Aged Out No longe [...] patient's age to complete this topic Insurance [facility] MANAGED MEDICARE ADV [facility] MANAGED MEDICARE ADV Care Teams Net Repairer Relationship Specialty Start Date End Date Dae Izaguirre DO [address] [place] [address] PCP - General 04/21/19
--- OUTSIDE RECORDS SUMMARY | 2024-11-27 20:57 | XMS_ITS | Clinical Summary ---
Author Organization [facility] Address [address] [place] [address] Phone Care Team Providers Care Advanced Manager Name Role Phone Dae Izaguirre Primary Care Provider [phone] Allergies No known active allergies Medications atorvastatin [...] migh t be different from the original. Return Agent Airport - Dr. Honorio Hinojosa ([facility]) Labs: [facility] lab F. [phone] P. [phone] Problem Noted Date Diagnosed Date New onset a-fib 09/12/2022 Generalized weakness 09/12/2022 Acute metabolic encephalopathy 09/11/2022 Elevated d-dimer 09/11/2022 Hyperkalemia 09/11/2022 Atrial flutter with rapid ventricular response 0 09/11/2022 Anxiety 01/02/2019 Dementia without behavioral disturbance 01/03/20 Cholecystitis 10/29/2018 Choledocholithiasis 10/29/2018 Pancreatic cystic lesion 10/29/2018 CAD (coronary atherosclerotic disease) 6 Atherosclerosis of [place] co ronary artery of [place] heart with unstable angina pectoris 08/28/2015 CONNORS [...] on file Legal Sex Male 11:59 AM CLINICAL HAEMATOLOGIST Gender Identity Not on file Sexual Orientation Not on file Last Filed Vital Signs Vital Sign Reading Time Taken Comments Blood Pressure 128/74 10/03/2022 11:04 AM CLINICAL HAEMATOLOGIST Pulse 68 10/03/2022 11:04 AM CLINICAL HAEMATOLOGIST Temperature 36.4 C (97.5 F) 09/15/2022 6:50 AM CLINICAL HAEMATOLOGIST Respiratory Rate 19 09/15/2022 6:50 AM CLINICAL HAEMATOLOGIST Oxygen Saturation 96% 10/03/2022 11:04 AM CLINICAL HAEMATOLOGIST Inhaled Oxygen Concentration - - Weight 82.6 kg (182 lb) 10/03/2022 11:04 AM CLINICAL HAEMATOLOGIST Height 172.7 cm (5' 8 ) 10/03/2022 11:04 AM CLINICAL HAEMATOLOGIST Body Mass Index 27.67 10/03/2022 11:04 AM CLINICAL HAEMATOLOGIST Plan of Treatment Health Maintenance Due Date Last Done Comments DTAP/TDAP/TD VACCINES (1 - Tdap) 1967 ZOSTER VACCINE (1 of 2) 1998 PNEUMOCOCCAL VACCINE 50+ YEA RS (2 of 2 - PPSV23) 10/30/2019 10/29/2018 RSV VACCINE (60+ or ) (1 - 1-dose 75+ series) 2023 INFLUENZA VACCINE (#1) 2024 8, 05/02/2017, 08/27/2015 Medical Devices Implanted Type Area Wood Piler Device Identifier Shelf Expiration Date Model / Serial / Lot Sealant Hemaflex [id number] - [id number] Implanted:Qty : 1 on 08/30/2015 by Monico Fisher MD at [facility] Biological N/A: Heart [employer] 12/08/2017 [id number] / / [id number] Stent Pncrtc Frmn Flx 5fr 5cm 6552 - [id number] Implanted:Qty : 1 on 10/29/2018 by Vinny Hua MD at [facility] Stent N/A: Pancreas [facility] [id number] 05/13/2023 6552 / / [id number] Description:in pancreatic du ct Graft Vasc Hmshld Gold [id number] - [id number] Implanted:Qty : 1 on 01/01/2019 by Regis Davey MD at [facility] Tissue N/A: Aorta [employer] 18 mm x 30 cm 05/12/2020 [id number] / [id number] Description: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 Pcp40 - [id number] Implanted:Qty : 2 on 08/30/2015 by Monico Fisher MD at [facility] N/A: Heart [employer] 03/12/2020 PCP40 / / [id number] [place] [address] [facility] [address] Advance Directives For more information, please contact: [phone] Documents on File Type Date Recorded Patient Standards Engineer Expl anation Advance Directive POA 01/01/2019 4:54 [...] 8:03 AM 01/01/2019 11:42 AM Care Teams Advanced Manager Relationship Specialty Start Date End Date Dae Izaguirre DO [address] [place] [address] PCP - General Internal Medicine 12/17/18
[2024-11-27 21:01] VITALS: BP 105/66; PULSE 65; RESP 18; TEMP 36.2; O2SAT 95
--- OUTSIDE RECORDS SUMMARY | 2024-11-27 21:18 | XMS_ITS | Clinical Summary ---
Author Organization [facility] Address [address] [place] [address] Phone Care Team Providers Care Bioinformatics Team Member Name Role Phone Dae Izaguirre Primary Care Provider [phone] Allergies No known active allergies Medications atorvastatin [...] migh t be different from the original. Service Worker Helper - Dr. Honorio Hinojosa ([facility]) Labs: [facility] hosp. lab F. [phone] P. [phone] Problem Noted Date Diagnosed Date New onset a-fib 09/12/2022 Generalized weakness 09/12/2022 Acute metabolic encephalopathy 09/11/2022 Elevated d-dimer 09/11/2022 Hyperkalemia 09/11/2022 Atrial flutter with rapid ventricular response 0 09/11/2022 Anxiety 01/02/2019 Dementia without behavioral disturbance 01/03/20 Cholecystitis 10/29/2018 Choledocholithiasis 10/29/2018 Pancreatic cystic lesion 10/29/2018 CAD (coronary atherosclerotic disease) 6 Atherosclerosis of [place] co ronary artery of [place] heart with unstable angina pectoris 08/28/2015 CONNORS [...] on file Legal Sex Male 11:59 AM SCRUB TECH Gender Identity Not on file Sexual Orientation Not on file Last Filed Vital Signs Vital Sign Reading Time Taken Comments Blood Pressure 128/74 10/03/2022 11:04 AM SCRUB TECH Pulse 68 10/03/2022 11:04 AM SCRUB TECH Temperature 36.4 C (97.5 F) 09/15/2022 6:50 AM SCRUB TECH Respiratory Rate 19 09/15/2022 6:50 AM SCRUB TECH Oxygen Saturation 96% 10/03/2022 11:04 AM SCRUB TECH Inhaled Oxygen Concentration - - Weight 82.6 kg (182 lb) 10/03/2022 11:04 AM SCRUB TECH Height 172.7 cm (5' 8 ) 10/03/2022 11:04 AM SCRUB TECH Body Mass Index 27.67 10/03/2022 11:04 AM SCRUB TECH Plan of Treatment Health Maintenance Due Date Last Done Comments DTAP/TDAP/TD VACCINES (1 - Tdap) 1967 ZOSTER VACCINE (1 of 2) 1998 PNEUMOCOCCAL VACCINE 50+ YEA RS (2 of 2 - PPSV23) 10/30/2019 10/29/2018 RSV VACCINE (60+ or ) (1 - 1-dose 75+ series) 2023 INFLUENZA VACCINE (#1) 2024 8, 05/02/2017, 08/27/2015 Medical Devices Implanted Type Area Radio Commentator Device Identifier Shelf Expiration Date Model / Serial / Lot Sealant Hemaflex [id number] - [id number] Implanted:Qty : 1 on 08/30/2015 by Monico Fisher MD at [facility] Biological N/A: Heart [employer] 12/08/2017 [id number] / / [id number] Stent Pncrtc Frmn Flx 5fr 5cm 6552 - [id number] Implanted:Qty : 1 on 10/29/2018 by Vinny Hua MD at [facility] Stent N/A: Pancreas 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 Pcp40 - [id number] Implanted:Qty : 2 on 08/30/2015 by Monico Fisher MD at [facility] N/A: Heart [employer] 03/12/2020 PCP40 / / [id number] [place] [address] [facility] [id number] Advance Directives For more information, please contact: [phone] Documents on File Type Date Recorded Patient Automation Engineering Technician Expl anation Advance Directive POA 01/01/2019 4:54 [...] 8:03 AM 01/01/2019 11:42 AM Care Teams Bioinformatics Team Member Relationship Specialty Start Date End Date Dae Izaguirre DO [address] [place] [address] PCP - General Internal Medicine 12/17/18
--- OUTSIDE RECORDS SUMMARY | 2024-11-27 21:18 | XMS_ITS | Clinical Summary ---
Author Organization [facility] Address [address] [place] [address] Care Team Providers Care Pastry Decorator Name Role Phone Dae Izaguirre Primary Care Provider [phone] Source Comments [facility],non-owned Affiliates and Associated Physician Practices is amultiple site organization consisting of ambulatory clinics and hospital sitesin [place], [place]. This disclosure is being madepursuant to the Care Everywhere program and may not contain all information available regarding this patient. Last updated 18.[facility] Allergies No known active allergies Medications * [...] patient's age to complete this topic Insurance [facility] MANAGED MEDICARE ADV [facility] MANAGED MEDICARE ADV Care Teams Pastry Decorator Relationship Specialty Start Date End Date Dae Izaguirre DO [address] [place] [address] PCP - General 04/21/19
--- OUTSIDE RECORDS SUMMARY | 2024-11-27 21:18 | XMS_ITS | Continuity of Care Document ---
Author Organization [email or web address] [place] [address] [place] [phone] Phone Care Team Providers Care Signal Tower Operator Name Role Phone Wilmer Lindquist MD Unavailable [...] Fundus Photos 021 SCODI, Retina Office/outpatient Visit, [facility] Advance Directives Directive Yes / No Effective Date File Name No Information Encounters Encounter Description Practice Location Reason(s) For Visit Diagnoses Date Provider Providers Copied on Encounter [facility], [address], [place], [place], [address], [place] tel:[phone] SEC Chuck PAINTER Professional 1 mo CE PO (03/09/21) (chief complaint) Post op visit 1 Lexa Guillen. [address], [address], [place], [place], [address], . tel:[phone] Referring Provider: Marisol Aiken OD, [address] [facility], [place], [address]. tel:[phone] [facility], [address], [place], [place], [address], tel:[phone] SEC Chuck PAINTER Professional 1 week s/p PCIOL (chief complaint) Post op visit 1 Lexa Guillen. [address], [address], [place], [place], [address], [place]. tel:[phone] Referring Provider: Marisol Aiken OD, [address] [facility], [place], [address]. tel:[phone] [facility], [address], [place], [place], [address], [place] tel:[phone] SEC Chuck PAINTER Professional Post-Op (chief complaint) Post op visit 1 Lexa Guillen. [address], [address], [place], [place], [address], [place]. tel:[phone] Referring Provider: Marisol Aiken OD, [address] [facility], [place], [address]. tel:[phone] [facility], [address], [place], [place], [address], [place] tel:[phone] [facility] No Information 1 Lexa Guillen. [address], [address], [place], [place], [address], [place]. tel:[phone] Referring Provider: Marisol Aiken OD, [address] [facility], [place], [address]. tel:[phone] [facility], [address], [place], [place], [address], [phone] SEC Chuck PAINTER Professional No Information 1 Lexa Guillen. [address], [address] [place], [address], [place]. tel:[phone] Referring Provider: Marisol Aiken OD, [address] [facility], [place], [address]. tel:[phone] [facility], [address], [place], [place], [address], [place] tel:[phone] SEC Chuck PAINTER Professional No Information 1 Lexa Guillen. [address], [address] [place], [address], [place]. tel:[phone] [facility], [address], [place], [place], [address], [place] tel:[phone] SEC Chuck PAINTER Professional Post-Op (chief complaint) Post op visit 1 Lexa Guillen. [address], [address] [place], [address], [place]. tel:[phone] Referring Provider: Marisol Aiken OD, [address] [facility], [place], [address]. tel:[phone] [facility], [address], [place], [place], [address], [place] [phone] SEC Amanda Marin No Information 1 Demian Rosen. [address], [address], [place], [place], [address], [place]. tel:[phone] [facility], [address], [place], [place], [address], [place] tel:[phone] SEC Chuck PAINTER Professional 1 day s/p PCIOL (chief complaint) Post op visit 1 Lexa Guillen. [address], [address] [place], [address], [place]. tel:[phone] Referring Provider: Marisol Aiken OD, [address] [facility], [place], [address]. tel:[phone] [facility], [address], [place], [place], [address], [place] tel:[phone] [facility] No Information 1 Lexa Guillen. [address], [address] [place], [address], [place]. tel:[phone] Referring Provider: Marisol Aiken OD, [address] [facility], [place], [address]. tel:[phone] [facility], [address], [place], [place], [address], tel:[phone] SEC Chuck PAINTER Professional No Information 1 Lexa Guillen. [address], [address] [place], [address], [place]. tel:[phone] Referring Provider: Marisol Aiken OD, [address] [facility], [place], [address]. tel:[phone] [facility], [address], [place], [place], [address], [place] tel:[phone] [place] No Information 1 Lexa Guillen. [address], [address] [place], [address], [place]. tel:[phone] Office/outpa tient Visit, [facility], [address], [place], [place], [address], [place] tel:[phone] SEC [facility] Professional Cataract evaluation (chief complaint) Combined forms of age-related cataract, bilateralNexd tve age-related mclr degn, bilateral, early dry stageVitreous degeneration, right eye 1 Lexa Guillen. [address], [address], [place], [place], [address], [place]. tel:[phone] Referring Provider: Marisol Aiken OD, [address] [facility], [place], [address]. tel:[phone] [facility], [address], [place], [place], [address], [place] tel:[phone] SEC Amanda Chaparro No Information 1 Lexa Guillen. [address], [address], [place], [place], [address], [place]. tel:[phone] Family History Family Member Type Diagnosis Age At Onset Problem Family history of degenerati ve disorder of macula Problem Family history of glaucoma Payers Payer name Insurance type Covered green party ID Authoriza tion(s) No Information Social [...] OS. Patient is using the combo drop [id number] qid OS. Patient denies any pain or [...]
--- OUTSIDE RECORDS SUMMARY | 2024-11-27 21:18 | XMS_ITS | Clinical Summary ---
Author Organization [facility] Address [address] [place] [address] Care Team Providers Care Value Stream Leader Name Role Phone Gino Woodson MD Primary Care Provider [phone] Medications ELIQUIS 5 MG tablet Take 1 [...] Problem Noted Date Diagnosed Date Hypovolemic shock ([facility] 12/12/2022 Ileus ([facility]) 12/12/2022 Pure hypercholesterolemia 12/12/2022 New onset a-fib ([facility]) 09/12/2022 Generalized weakness 09/12/2022 Acute metabolic encephalopathy 09/11/2022 Atrial flutter with rapid ve ntricular response ([facility]) 09/11/2022 Elevated d-dimer 09/11/2022 Hyperkalemia 09/11/2022 Anxiety 01/02/2019 Dementia without behavioral disturbance 01/03/20 19 Cholecystitis 10/29/2018 Choledocholithiasis 10/29/2018 Pancreatic lesion ([facility]) 10/29/2018 CAD (coronary atherosclerotic disease) 6 Atherosclerosis of alturas co ronary artery of alturas heart with unstable angina pectoris ([facility]) 08/28/2015 CONNORS (dyspnea on exertion) 08/27/2015 Precordial [...] - 2023-2 5 season) 2024 PHQ-2 (Physician [place]) 08/13/2024 Meningococcal B Vaccine Aged Out No l onger eligible based on patient's age to complete this topic Meningococcal Vaccine Aged Out No dionte alma eligible based on patient's age to complete this topic RSV Immunizations Under 20 Months Aged Out No longer eligible based on patient's age to complete this [place] [address] [facility] Member Subscriber Plan / Payer (Ef fective 2022-Present) Name:David Martinez Relation to Subscriber:Self Name:David Martinez Payer ID:[id number] (NAIC) Type:Not on file Address: [address] [place] [address] Care Teams Value Stream Leader Relationship Specialty [place] [address] [place] [address] PCP - General FAMILY PRACTICE 12/12/22
[2024-11-27 21:30] VITALS: BP 112/70; O2SAT 91
[2024-11-27 21:45] VITALS: BP 114/69; O2SAT 90
[2024-11-27 22:00] VITALS: BP 112/71; O2SAT 93
--- NOTE | 2024-11-27 22:22 | ED_ITS ---
HPI - Fall General Chief Complaint: Fall Stated Complaint: fall Time Seen by Provider: 11/27/24 21:06 Related Data Home Medications ?Medication ?Instructions ?Recorded ?Confirmed ?Last Taken ?Type aspirin 81 mg tablet,delayed 81 mg PO DAILY 08/27/19 11/19/24 09/10/22 History release (Aspir-) melatonin 10 mg tablet 10 mg PO HS 09/02/19 11/19/24 09/10/22 History memantine 10 mg tablet (Namenda) 10 mg PO BID 09/02/19 11/19/24 09/10/22 History PreserVision AREDS-2 1 tablet PO DAILY 09/11/22 11/19/24 09/10/22 History atorvastatin 20 mg tablet (Lipitor) 20 mg PO DAILY 09/11/22 11/19/24 09/10/22 History divalproex 250 mg tablet,delayed 500 mg PO TID 09/18/22 11/19/24 Unknown History release (Depakote) cholecalciferol (vitamin D3) 50 50 mcg PO DAILY 10/04/22 11/19/24 Unknown History mcg (2,000 unit) capsule donepezil 10 mg tablet (Aricept) 10 mg PO DAILY 03/04/24 11/19/24 Unknown History mirabegron 50 mg tablet,extended 25 mg PO DAILY 03/04/24 11/19/24 Unknown History release 24 hr (Myrbetriq) tamsulosin 0.4 mg capsule (Flomax) 0.4 mg PO DAILY 03/04/24 11/19/24 Unknown History buspirone 15 mg tablet 15 mg PO TID 08/27/24 11/19/24 Unknown History Allergies Allergy/AdvReac Type Severity Reaction Status Date / Time No Known Allergies Allergy Verified 11/27/24 21:12 [facility] Past Medical History Medical History Paroxysmal atrial flutter Benign prostatic hyperplasia Chronic anticoagulation Obstructive sleep apnea Intolerant to PAP therapy. Coronary artery disease Chronic obstructive pulmonary disease Alzheimer disease Abdominal aortic aneurysm Status post repair. Mixed hyperlipidemia Lesion of pancreas Surgical History Surgical History History of abdominal aortic aneurysm repair History of coronary artery bypass graft History of cholecystectomy History of cataract extraction with lens replacement Family History Family History Sibling Cancer Anxiety Mother Anxiety Other Anxiety and depression Social History Social History Social History: Surrogate medical decision maker: Ramya Martinez (spouse) or Camelia Duarte (daughter). Code status: Full code. Smoking packs per day: 1 Smoking cigarettes per day: 20.0 Years smoked: 50 Smoking pack-years: 50.00 Smoking status: Former smoker Tobacco type: cigarettes Second hand tobacco smoke exposure: Yes Smoking end date: 11/12/99 Alcohol intake: never Drinks per week: 1 Alcohol use details: Social alcohol use in moderation. Substance use: never Substance use type: does not use Lack of Transportation: No Lack of Food: Never True Current Housing: I Have Housing Concerned About Future Housing: No Difficulty Paying Gas/Electric Bills: No Difficulty Paying for Meds: No Currently Unemployed: No Education: Don't Know Difficulty w/ Childcare or Family Care: No Living arrangements: with family Additional living arrangements comments: Currently living with spouse in [place]. 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 Spiritual care concerns: No Course Vital Signs Vital signs: Vital Signs Temperature 36.2 C L 11/27/24 21:01 Pulse Rate 65 11/27/24 21:01 Respiratory Rate 18 11/27/24 21:01 Blood Pressure 105/66 11/27/24 21:01 Pulse Oximetry 95 11/27/24 21:01 Oxygen Delivery Room Air 11/27/24 21:01 Temperature 36.2 C L 11/27/24 21:01 Pulse Rate 65 11/27/24 21:01 Respiratory Rate 18 11/27/24 21:01 Blood Pressure 126/74 11/27/24 23:00 Pulse Oximetry 92 11/27/24 22:52 Oxygen Delivery Room Air 11/27/24 21:01 Discharge Plan Discharge Clinical Impression: Hematoma of occipital region of scalp, Fall Patient Disposition: NH Retirement/Asst Living Condition: Stable Instructions: Antibiotic Form, Contusion in Adults (ED) Additional Instructions: advised to follow-up with primary care physician within 1 week for further evaluation and treatment. Patient Language: Nepalese Prescriptions: No Action donepezil [Aricept] 10 mg tablet 10 mg PO DAILY tamsulosin [Flomax] 0.4 mg capsule 0.4 mg PO DAILY mirabegron [Myrbetriq] 50 mg tablet extended release 24 hr 25 mg PO DAILY PreserVision AREDS-2 1 tablet PO DAILY atorvastatin [Lipitor] 20 mg tablet 20 mg PO DAILY Rx Instructions: TAKE 1 TABLET BY MOUTH DAILY aspirin [Aspir-81] 81 mg tablet,delayed release (DR/EC) 81 mg PO DAILY memantine [Namenda] 10 mg tablet 10 mg PO BID melatonin 10 mg tablet 10 mg PO HS cholecalciferol (vitamin D3) 50 mcg (2,000 unit) capsule 50 mcg PO DAILY torsemide 10 mg tablet 10 mg PO QAM Qty: 90 0RF sertraline 150 mg capsule 150 mg PO DAILY Qty: 90 0RF Spiriva with HandiHaler 18 mcg capsule, w/inhalation device 1 cap inhalation DAILY Qty: 90 0RF Rx Instructions: puncture 1 cap using device; one dose = 2 inhalations buspirone 15 mg tablet 15 mg PO TID polysaccharide iron complex 150 mg iron Capsule 150 mg PO DAILY@0800 Qty: 30 0RF divalproex [Depakote] 250 mg tablet,delayed release (DR/EC) 500 mg PO TID Rx Instructions: 1 tablet by mouth three times daily albuterol sulfate 5 mg/mL solution for nebulization 5 mg inhalation Q4H PRN (Reason: shortness of breath or wheezing) Qty: 600 0RF Xarelto 20 mg tablet 20 mg PO DAILY Qty: 90 0RF Rx Instructions: must administer with evening meal albuterol sulfate 90 mcg/actuation HFA aerosol inhaler 1 inh inhalation Q4H PRN (Reason: shortness of breath or wheezing) Qty: 8.5 0RF acetaminophen 500 mg tablet 1,000 mg PO Q8H PRN (Reason: acute pain (7-10)) Qty: 30 1RF Rx Instructions: Do not exceed 3,000 mg in a 24 hour period. Space out every 8 hours. lorazepam 1 mg tablet 1 mg PO BID PRN (Reason: agitation) Qty: 60 2RF Follow-up/Referrals: Juan Ramon Lyman DO [Primary Care Provider] - Stand Alone Forms: Custodial Discharge Time of Disposition: 22:51
--- NOTE | 2024-11-27 22:23 | ED_ITS ---
HPI - Fall General Chief Complaint: Fall Stated Complaint: fall Time Seen by Provider: 11/27/24 21:06 Source: patient and EMS Mode of arrival: EMS Limitations: physical limitation History of Present Illness HPI Narrative: This is a 74-year-old shelter patient with history of AFib currently on anticoagulants and had a fall off his the toilet seat and fell back and hit his head causing a hematoma to the posterior scalp did not lose consciousness there was no neurological deficits, patient is currently comfortable not complaining of any headache or neck pain. No other injuries noted. MD complaint: fall Onset (ago): hour(s) Fall from: other Place fall occurred: shelter/SNF Loss of consciousness: none Context: tripped/slipped Severity: mild Related Data Home Medications ?Medication ?Instructions ?Recorded ?Confirmed ?Last Taken ?Type aspirin 81 mg tablet,delayed 81 mg PO DAILY 08/27/19 11/19/24 09/10/22 History release (Aspir-) melatonin 10 mg tablet 10 mg PO HS 09/02/19 11/19/24 09/10/22 History memantine 10 mg tablet (Namenda) 10 mg PO BID 09/02/19 11/19/24 09/10/22 History PreserVision AREDS-2 1 tablet PO DAILY 09/11/22 11/19/24 09/10/22 History atorvastatin 20 mg tablet (Lipitor) 20 mg PO DAILY 09/11/22 11/19/24 09/10/22 History divalproex 250 mg tablet,delayed 500 mg PO TID 09/18/22 11/19/24 Unknown History release (Depakote) cholecalciferol (vitamin D3) 50 50 mcg PO DAILY 10/04/22 11/19/24 Unknown History mcg (2,000 unit) capsule donepezil 10 mg tablet (Aricept) 10 mg PO DAILY 03/04/24 11/19/24 Unknown Histor y mirabegron 50 mg tablet,extended 25 mg PO DAILY 03/04/24 11/19/24 Unknown History release 24 hr (Myrbetriq) tamsulosin 0.4 mg capsule (Flomax) 0.4 mg PO DAILY 03/04/24 11/19/24 Unknown His tory buspirone 15 mg tablet 15 mg PO TID 08/27/24 11/19/24 Unknown History Allergies Allergy/AdvReac Type Severity Reaction Status Date / Time No Known Allergies Allergy Verified 11/27/24 21:12 Review of Systems Review of Systems: All systems reviewed & are unremarkable except as noted in HPI and below PMFSH Past Medical History Medical History Paroxysmal atrial flutter Benign prostatic hyperplasia Chronic anticoagulation Obstructive sleep apnea Intolerant to PAP therapy. Coronary artery disease Chronic obstructive pulmonary disease Alzheimer disease Abdominal aortic aneurysm Status post repair. Mixed hyperlipidemia Lesion of pancreas Surgical History Surgical History History of abdominal aortic aneurysm repair History of coronary artery bypass graft History of cholecystectomy History of cataract extraction with lens replacement Family History Family History Sibling Cancer Anxiety Mother Anxiety Other Anxiety and depression Social History Social History Social History: Surrogate medical decision maker: Ramya Martinez (spouse) or Camelia Duarte (daughter). Code status: Full code. Smoking packs per day: 1 Smoking cigarettes per day: 20.0 Years smoked: 50 Smoking pack-years: 50.00 Smoking status: Former smoker Tobacco type: cigarettes Second hand tobacco smoke exposure: Yes Smoking end date: 11/12/99 Alcohol intake: never Drinks per week: 1 Alcohol use details: Social alcohol use in moderation. Substance use: never Substance use type: does not use Lack of Transportation: No Lack of Food: Never True Current Housing: I Have Housing Concerned About Future Housing: No Difficulty Paying Gas/Electric Bills: No Difficulty Paying for Meds: No Currently Unemployed: No Education: Don't Know Difficulty w/ Childcare or Family Care: No Living arrangements: with family Additional living arrangements comments: Currently living with spouse in [place]. 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 Spiritual care concerns: No Exam Const: General: no acute distress Nutritional Appearance: well nourished Limitations: no limitations and physical limitations HENMT: Face and sinus: normal facial exam Eyes: Conjunctivae: conjunctivae normal Pupils: Equal, round and reactive pupils present EOM: EOMs intact bilaterally Neck: Neck: normal visual inspection, no lymphadenopathy and no meningeal signs Chest: Chest palpation & inspection: normal inspection of the chest Resp: Effort & Inspection: normal respiratory effort Auscultation: clear to auscultation bilaterally Cardio: Rate: regular rate Rhythm: abnormal rhythm GI: GI Palp: Yes Soft to palpation Auscultation: normal bowel sounds Urinary Catheter: Urinary Catheter: patent and draining Neuro: General: moves all extremities, no meningeal signs and no focal motor deficits Cranial nerves: Yes Nystagmus not present Speech: normal speech Extrem: General: normal to inspection and no clubbing, cyanosis or edema Course Course Emergency Course: Patient currently stable with no neurological deficits not complaining of any pain, had a brain and cervical spine CT that showed no acute abnormalities. Vital Signs Vital signs: Vital Signs Temperature 36.2 C L 11/27/24 21:01 Pulse Rate 65 11/27/24 21:01 Respiratory Rate 18 11/27/24 21:01 Blood Pressure 105/66 11/27/24 21:01 Pulse Oximetry 95 11/27/24 21:01 Oxygen Delivery Room Air 11/27/24 21:01 Temperature 36.2 C L 11/27/24 21:01 Pulse Rate 65 11/27/24 21:01 Respiratory Rate 18 11/27/24 21:01 Blood Pressure 112/71 11/27/24 22:00 Pulse Oximetry 93 11/27/24 22:00 Oxygen Delivery Room Air 11/27/24 21:01 Critical Care Time Critical Care Time Critical Care Time: No Discharge Plan Discharge Clinical Impression: Hematoma of occipital region of scalp Fall Qualifiers: Encounter type: initial encounter Qualified Code(s): W19.XXXA - Unspecified fall, initial encounter Patient Disposition: NH Skilled Nursing/Asst Living Condition: Stable Instructions: Antibiotic Form, Contusion in Adults (ED) Additional Instructions: advised to follow-up with primary care physician within 1 week for further evaluation and treatment. Patient Language: Lao Prescriptions: No Action donepezil [Aricept] 10 mg tablet 10 mg PO DAILY tamsulosin [Flomax] 0.4 mg capsule 0.4 mg PO DAILY mirabegron [Myrbetriq] 50 mg tablet extended release 24 hr 25 mg PO DAILY PreserVision AREDS-2 1 tablet PO DAILY atorvastatin [Lipitor] 20 mg tablet 20 mg PO DAILY Rx Instructions: TAKE 1 TABLET BY MOUTH DAILY aspirin [Aspir-81] 81 mg tablet,delayed release (DR/EC) 81 mg PO DAILY memantine [Namenda] 10 mg tablet 10 mg PO BID melatonin 10 mg tablet 10 mg PO HS cholecalciferol (vitamin D3) 50 mcg (2,000 unit) capsule 50 mcg PO DAILY torsemide 10 mg tablet 10 mg PO QAM Qty: 90 0RF sertraline 150 mg capsule 150 mg PO DAILY Qty: 90 0RF Spiriva with HandiHaler 18 mcg capsule, w/inhalation device 1 cap inhalation DAILY Qty: 90 0RF Rx Instructions: puncture 1 cap using device; one dose = 2 inhalations buspirone 15 mg tablet 15 mg PO TID polysaccharide iron complex 150 mg iron Capsule 150 mg PO DAILY@0800 Qty: 30 0RF divalproex [Depakote] 250 mg tablet,delayed release (DR/EC) 500 mg PO TID Rx Instructions: 1 tablet by mouth three times daily albuterol sulfate 5 mg/mL solution for nebulization 5 mg inhalation Q4H PRN (Reason: shortness of breath or wheezing) Qty: 600 0RF Xarelto 20 mg tablet 20 mg PO DAILY Qty: 90 0RF Rx Instructions: must administer with evening meal albuterol sulfate 90 mcg/actuation HFA aerosol inhaler 1 inh inhalation Q4H PRN (Reason: shortness of breath or wheezing) Qty: 8.5 0RF acetaminophen 500 mg tablet 1,000 mg PO Q8H PRN (Reason: acute pain (7-10)) Qty: 30 1RF Rx Instructions: Do not exceed 3,000 mg in a 24 hour period. Space out every 8 hours. lorazepam 1 mg tablet 1 mg PO BID PRN (Reason: agitation) Qty: 60 2RF Follow-up/Referrals: Juan Ramon Lyman DO [Primary Care Provider] -
[2024-11-27 22:52] VITALS: BP 119/73; O2SAT 92
--- NOTE | 2024-11-27 22:55 | PC.NURSE ---
Spoke to DRAKE [facility]. Told her pt is ready for discharge. She will send someone over to pick him up.
[2024-11-27 23:00] VITALS: BP 126/74
--- NOTE | 2024-11-27 23:18 | PC.NURSE ---
Called pt's , Stephanie, and gave her an update on pt's condition. Told her pt was returning to [facility].
== END 2024-11-27 23:18 ==
PROVIDERS: Emergency Provider Emergency Medicine; PCP Family Medicine
DX: S00.03XA Contusion of scalp, initial encounter (principal); J44.9 Chronic obstructive pulmonary disease, unspecified; G30.9 Alzheimer's disease, unspecified; F02.80 Dementia in other diseases classified elsewhere, unspecified severity, without behavioral disturbance, psychotic disturbance, mood disturbance, and anxiety; E78.2 Mixed hyperlipidemia; I48.91 Unspecified atrial fibrillation; Z79.01 Long term (current) use of anticoagulants; W18.11XA Fall from or off toilet without subsequent striking against object, initial encounter; Y92.121 Bathroom in nursing home as the place of occurrence of the external cause; Z87.891 Personal history of nicotine dependence
CPT/HCPCS: 70450; 72125; 99284

== ENCOUNTER 2024-11-28 13:15 | Outpatient (CLI) | payer MEDICARE, MEDICAID, SELFPAY ==
--- NOTE | ~2024-11-28 | XR_ITS ---
Left Knee Technique: AP, lateral, and sunrise views were obtained. Clinical History: Pain Findings: No fracture or dislocation is seen. Osseous alignment is anatomic. Joint spaces are preserv ed without degenerative or erosive change. Small to moderate joint effusion is seen. Impression: Ljczw-sv-jdhzgdis joint effusion. Reviewed, dictated and finalized at location . Impression: Vewrh-qq-bnmzefob joint effusion.
--- OUTSIDE RECORDS SUMMARY | 2024-11-28 13:19 | XMS_ITS | Clinical Summary ---
Author Organization [facility] Address [address] [place] [address] Care Team Providers Care Fiber Drier Operator Name Role Phone Gino Woodson MD Primary Care Provider [phone] Medications ELIQUIS 5 MG tablet Take 1 [...] Problem Noted Date Diagnosed Date Hypovolemic shock ([facility]) 12/12/2022 Ileus ([facility]) 12/12/2022 Pure hypercholesterolemia 12/12/2022 New onset a-fib ([facility]) 09/12/2022 Generalized weakness 09/12/2022 Acute metabolic encephalopathy 09/11/2022 Atrial flutter with rapid ve ntricular response ([facility]) 09/11/2022 Elevated d-dimer 09/11/2022 Hyperkalemia 09/11/2022 Anxiety 01/02/2019 Dementia without behavioral disturbance 01/03/20 19 Cholecystitis 10/29/2018 Choledocholithiasis 10/29/2018 Pancreatic lesion ([facility]) 10/29/2018 CAD (coronary atherosclerotic disease) 6 Atherosclerosis of [place] co ronary artery of [place] heart with unstable angina pectoris ([facility]) 08/28/2015 CONNORS (dyspnea on exertion) 08/27/2015 Precordial [...] 50+ Ye ars (2 of 2 - PPSV23) 12/24/2018 10/29/2018 RSV Immunization or 60+ Years (1 - 1-dose 75+ series) 2023 COVID-19 Vaccine ( - 2023-2 5 season) 2024 PHQ-2 (Physician [place]) 08/13/2024 Meningococcal B Vaccine Aged Out No l onger eligible based on patient's age to complete this topic Meningococcal Vaccine Aged Out No dionte alma eligible based on patient's age to complete this topic RSV Immunizations Under 20 Months Aged Out No longer eligible based on patient's age to complete this topic [place] [place] [address] [facility] Member Subscriber Plan / Payer (Ef fective 2022-Present) Name:David Martinez Relation to Subscriber:Self Name:David Martinez Payer ID:[id number] (NAIC) Type:Not on file Address: [address] [place] [address] Care Teams Fiber Drier Operator Relationship Specialty [place] [address] [place] [address] PCP - General FAMILY PRACTICE 12/12/22
--- OUTSIDE RECORDS SUMMARY | 2024-11-28 13:19 | XMS_ITS | Clinical Summary ---
Author Organization [facility] Address [address] [place] [address] Phone Care Team Providers Care Welt Sewer Name Role Phone Dae Izaguirre Primary Care Provider [phone] Allergies No known active allergies Medications atorvastatin [...] migh t be different from the original. Donor Relations Associate - Dr. Honorio Hinojosa ([facility]) Labs: [facility] Mem hosp. lab F. [phone] P. [phone] Problem Noted Date Diagnosed Date New onset a-fib 09/12/2022 Generalized weakness 09/12/2022 Acute metabolic encephalopathy 09/11/2022 Elevated d-dimer 09/11/2022 Hyperkalemia 09/11/2022 Atrial flutter with rapid ventricular response 0 09/11/2022 Anxiety 01/02/2019 Dementia without behavioral disturbance 01/03/20 Cholecystitis 10/29/2018 Choledocholithiasis 10/29/2018 Pancreatic cystic lesion 10/29/2018 CAD (coronary atherosclerotic disease) 6 Atherosclerosis of [place] co ronary artery of [place] heart with unstable angina pectoris 08/28/2015 CONNORS [...] on file Legal Sex Male 11:59 AM FREELANCE DIRECTOR Gender Identity Not on file Sexual Orientation Not on file Last Filed Vital Signs Vital Sign Reading Time Taken Comments Blood Pressure 128/74 10/03/2022 11:04 AM FREELANCE DIRECTOR Pulse 68 10/03/2022 11:04 AM FREELANCE DIRECTOR Temperature 36.4 C (97.5 F) 09/15/2022 6:50 AM FREELANCE DIRECTOR Respiratory Rate 19 09/15/2022 6:50 AM FREELANCE DIRECTOR Oxygen Saturation 96% 10/03/2022 11:04 AM FREELANCE DIRECTOR Inhaled Oxygen Concentration - - Weight 82.6 kg (182 lb) 10/03/2022 11:04 AM FREELANCE DIRECTOR Height 172.7 cm (5' 8 ) 10/03/2022 11:04 AM FREELANCE DIRECTOR Body Mass Index 27.67 10/03/2022 11:04 AM FREELANCE DIRECTOR Plan of Treatment Health Maintenance Due Date Last Done Comments DTAP/TDAP/TD VACCINES (1 - Tdap) 1967 ZOSTER VACCINE (1 of 2) 1998 PNEUMOCOCCAL VACCINE 50+ YEA RS (2 of 2 - PPSV23) 10/30/2019 10/29/2018 RSV VACCINE (60+ or ) (1 - 1-dose 75+ series) 2023 INFLUENZA VACCINE (#1) 2024 8, 05/02/2017, 08/27/2015 Medical Devices Implanted Type Area [employer] Device Identifier Shelf Expiration Date Model / Serial / Lot Sealant Hemaflex [id number] - [id number] Implanted:Qty : 1 on 08/30/2015 by Monico Fisher MD at [facility] Biological N/A: Heart [employer] 12/08/2017 [id number] / / [id number] Stent Pncrtc Frmn Flx 5fr 5cm 6552 - [id number] Implanted:Qty : 1 on 10/29/2018 by Vinny Hua MD at [facility] Stent N/A: Pancreas [facility] [id number] 05/13/2023 [id number] / / [id number] Description:in pancreatic du ct Graft Vasc Hmshld Gold [id number] - [id number] Implanted:Qty : 1 on 01/01/2019 by Regis Davey MD at [facility] Tissue N/A: Aorta [employer] [facility] AB 18 mm x 30 cm 05/12/2020 [id number] / [id number] Description: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 Pcp40 - [id number] Implanted:Qty : 2 on 08/30/2015 by Monico Fisher MD at [facility] N/A: Heart [employer] 03/12/2020 PCP40 / / [id number] [place] [address] [facility] [id number] Advance Directives For more information, please contact: [phone] Documents on File Type Date Recorded Patient Ferruler Expl anation Advance Directive POA 01/01/2019 4:54 [...] 8:03 AM 01/01/2019 11:42 AM Care Teams Welt Sewer Relationship Specialty Start Date End Date Dae Izaguirre DO [address] [facility] [address] [place] [address] PCP - General Internal Medicine 12/17/18
--- OUTSIDE RECORDS SUMMARY | 2024-11-28 13:19 | XMS_ITS | Clinical Summary ---
Author Organization [facility] Address [address] [place] [address] Care Team Providers Care Deputy Prosecuting Attorney Name Role Phone Dae Izaguirre Primary Care Provider [phone] Source Comments [facility],non-owned Affiliates and Associated Physician Practices is amultiple site organization consisting of ambulatory clinics and hospital sitesin [place], [place], [place] and [place]. This disclosure is being madepursuant to the Care Everywhere program and may not contain all information available regarding this patient. Last updated 18.[facility] Allergies No known active allergies Medications * [...] patient's age to complete this topic Insurance [facility] MANAGED MEDICARE ADV [facility] MANAGED MEDICARE ADV Care Teams Deputy Prosecuting Attorney Relationship Specialty Start Date End Date Dae Izaguirre DO [address] [place] [address] PCP - General 04/21/19
--- OUTSIDE RECORDS SUMMARY | 2024-11-28 13:19 | XMS_ITS | Continuity of Care Document ---
Author Organization [facility] Address [address] [place] [phone] Phone Care Team Providers Care Overhead Crane Truck Loader Name Role Phone Wilmer Lindquist MD Unavailable [...] Fundus Photos 021 SCODI, Retina Office/outpatient Visit, [facility] Advance Directives Directive Yes / No Effective Date File Name No Information Encounters Encounter Description Practice Location Reason(s) For Visit Diagnoses Date Provider Providers Copied on Encounter [facility], [address], [place], [place], [address], [place] tel:[phone] SEC Chuck PAINTER Professional 1 mo CE PO (03/09/21) (chief complaint) Post op visit 1 Lexa Guillen. [address], [address], [place], [place], [address], . tel:[phone] Referring Provider: Marisol Aiken OD, [address] [facility], [place], [address]. tel:[phone] [facility], [address], [place], [place], [address], tel:[phone] SEC Chuck PAINTER Professional 1 week s/p PCIOL (chief complaint) Post op visit 1 Lexa Guillen. [address], [address], [place], [place], [address], [place]. tel:[phone] Referring Provider: Marisol Aiken OD, [address] [facility], [place], [address]. tel:[phone] [facility], [address], [place], [place], [address], [place] tel:[phone] SEC Chuck PAINTER Professional Post-Op (chief complaint) Post op visit 1 Lexa Guillen. [address], [place], [place], [address], [place]. tel:[phone] Referring Provider: Marisol Aiken OD, [address] [facility], [place], [address]. tel:[phone] [facility], [address], [place], [place], [address], [place] tel:[phone] [facility] No Information 1 Lexa Guillen. [address], [address], [place], [place], [address], [place]. tel:[phone] Referring Provider: Marisol Aiken OD, [address] [facility], [place], [address]. tel:[phone] [facility], [address], [place], [place], [address], [phone] SEC Chuck PAINTER Professional No Information 1 Lexa Guillen. [address], [address] [place], [address], [place]. tel:[phone] Referring Provider: Marisol Aiken OD, [address] [facility], [place], [address]. tel:[phone] [facility], [address], [place], [place], [address], [place] tel:[phone] SEC Chuck PAINTER Professional No Information 1 Lexa Guillen. [address], [address] [place], [address], [place]. tel:[phone] [facility], [address], [place], [place], [address], [place] tel:[phone] SEC Chuck PAINTER Professional Post-Op (chief complaint) Post op visit 1 Lexa Guillen. [address], [address] [place], [address], [place]. tel:[phone] Referring Provider: Marisol Aiken OD, [address] [facility], [place], [address]. tel:[phone] [facility], [address], [place], [place], [address], [place] [phone] SEC Amanda Marin No Information 1 Demian Rosen. [address], [address], [place], [place], [address], [place]. tel:[phone] [facility], [address], [place], [place], [address], [place] tel:[phone] SEC Chuck PAINTER Professional 1 day s/p PCIOL (chief complaint) Post op visit 1 Lexa Guillen. [address], [address] [place], [address], [place]. tel:[phone] Referring Provider: Marisol Aiken OD, [address] [facility], [place], [address]. tel:[phone] [facility], [address], [place], [place], [address], [place] tel:[phone] [facility] No Information 1 Lexa Guillen. [address], [address] [place], [address], [place]. tel:[phone] Referring Provider: Marisol Aiken OD, [address] [facility], [place], [address]. tel:[phone] [facility], [address], [place], [place], [address], tel:[phone] SEC Chuck PAINTER Professional No Information 1 Lexa Guillen. [address], [address] [place], [address], [place]. tel:[phone] Referring Provider: Marisol Aiken OD, [address] [employer] [facility], [place], [address]. tel:[phone] [facility], [address], [place], [place], [address], [place] tel:[phone] [place] No Information 1 Lexa Guillen. [address], [address] [place], [address], [place]. tel:[phone] Office/outpa tient Visit, [facility], [address], [place], [place], [address], [place] tel:[phone] SEC [facility] Professional Cataract evaluation (chief complaint) Combined forms of age-related cataract, bilateralNexd tve age-related mclr degn, bilateral, early dry stageVitreous degeneration, right eye 1 Lexa Guillen. [address], [place], [place], [address], [place]. tel:[phone] Referring Provider: Marisol Aiken OD, [address] [facility], [place], [address]. tel:[phone] [facility], [address], [place], [place], [address], [place] tel:[phone] SEC Amanda Chaparro No Information 1 Lexa Guillen. [address], [place], [place], [address], [place]. tel:[phone] Family History Family Member Type Diagnosis Age At Onset Problem Family history of degenerati ve disorder of macula Problem Family history of glaucoma Payers Payer name Insurance type Covered libertarian ID Authoriza tion(s) No Information Social History [...] OS. Patient is using the combo drop Qlro-eykcvvdspnuy-Gyhjspays qid OS. Patient denies any pain or [...]
== END 2024-11-28 13:16 | disposition home or self-care (01) ==
PROVIDERS: PCP Family Medicine; Visit Provider Family Medicine
DX: M25.562 Pain in left knee (principal); M25.462 Effusion, left knee
CPT/HCPCS: 73562

== ENCOUNTER 2024-12-05 18:38 | Outpatient (CLI) | payer MEDICARE, MEDICAID, SELFPAY ==
--- OUTSIDE RECORDS SUMMARY | 2024-12-05 18:41 | XMS_ITS | Clinical Summary ---
Author Organization [facility] Address [address] [place] [address] Care Team Providers Care Drill Rig Operator Name Role Phone Gino Woodson MD Primary Care Provider [phone] Medications ELIQUIS 5 MG tablet Take 1 [...] Problem Noted Date Diagnosed Date Hypovolemic shock ([facility]) 12/12/2022 Ileus ([facility]) 12/12/2022 Pure hypercholesterolemia 12/12/2022 New onset a-fib ([facility]) 09/12/2022 Generalized weakness 09/12/2022 Acute metabolic encephalopathy 09/11/2022 Atrial flutter with rapid ve ntricular response ([facility]) 09/11/2022 Elevated d-dimer 09/11/2022 Hyperkalemia 09/11/2022 Anxiety 01/02/2019 Dementia without behavioral disturbance 01/03/20 19 Cholecystitis 10/29/2018 Choledocholithiasis 10/29/2018 Pancreatic lesion ([facility]) 10/29/2018 CAD (coronary atherosclerotic disease) 6 Atherosclerosis of [place] co ronary artery of [place] heart with unstable angina pectoris ([facility]) 08/28/2015 CONNORS (dyspnea on exertion) 08/27/2015 Precordial [...] - 2023-2 5 season) 2024 PHQ-2 (Physician [place]) 08/13/2024 Meningococcal B Vaccine Aged Out No l onger eligible based on patient's age to complete this topic Meningococcal Vaccine Aged Out No dionte alma eligible based on patient's age to complete this topic RSV Immunizations Under 20 Months Aged Out No longer eligible based on patient's age to complete this [place] [address] [facility] Member Subscriber Plan / Payer (Ef fective 2022-Present) Name:David Martinez Relation to Subscriber:Self Name:David Martinez Payer ID:[id number] (NAIC) Type:Not on file Address: [address] [place] [address] Care Teams Drill Rig Operator Relationship Specialty [place] [address] [place] [address] PCP - General FAMILY PRACTICE 12/12/22
--- OUTSIDE RECORDS SUMMARY | 2024-12-05 18:41 | XMS_ITS | Clinical Summary ---
Author Organization [facility] [employer] Address [address] [place] [address] Care Team Providers Care Termite Helper Name Role Phone Dae Izaguirre Primary Care Provider [phone] Source Comments [facility] [employer],non-owned Affiliates and Associated Physician Practices is amultiple site organization consisting of ambulatory clinics and hospital sitesin [place], [place], [place] and [place]. This disclosure is being madepursuant to the Care Everywhere program and may not contain all information available regarding this patient. Last updated 18.[facility] [employer] Allergies No known active allergies Medications * [...] patient's age to complete this topic Insurance [facility] MANAGED MEDICARE ADV [facility] MANAGED MEDICARE ADV Care Teams Termite Helper Relationship Specialty Start Date End Date Dae Izaguirre DO [address] [place] [address] PCP - General 04/21/19
--- OUTSIDE RECORDS SUMMARY | 2024-12-05 18:41 | XMS_ITS | Continuity of Care Document ---
Author Organization [facility] [facility] Address [address] [place] [phone] Phone Care Team Providers Care Acquisitions Logistics Analyst Name Role Phone Wilmer Lindquist MD Unavailable [...] Fundus Photos 021 SCODI, Retina Office/outpatient Visit, [facility] Advance Directives Directive Yes / No Effective Date File Name No Information Encounters Encounter Description Practice Location Reason(s) For Visit Diagnoses Date Provider Providers Copied on Encounter [facility], [address], [place], [place], [address], [place] tel:[phone] SEC Chuck PAINTER Professional 1 mo CE PO (03/09/21) (chief complaint) Post op visit 1 Lexa Guillen. [address], [address], [place], [place], [address], . tel:[phone] Referring Provider: Marisol Aiken OD, [address] [facility], [place], [address]. tel:[phone] [facility], [address], [place], [place], [address], tel:[phone] SEC Chuck PAINTER Professional 1 week s/p PCIOL (chief complaint) Post op visit 1 Lexa Guillen. [address], [address], [place], [place], [address], [place]. tel:[phone] Referring Provider: Marisol Aiken OD, [address] [facility], [place], [address]. tel:[phone] [facility], [address], [place], [place], [address], [place] tel:[phone] SEC Chuck PAINTER Professional Post-Op (chief complaint) Post op visit 1 Lexa Guillen. [address], [address], [place], [place], [address], [place]. tel:[phone] Referring Provider: Marisol Aiken OD, [address] [facility], [place], [address]. tel:[phone] [facility], [address], [place], [place], [address], [place] tel:[phone] [facility] No Information 1 Lexa Guillen. [address], [address], [place], [place], [address], [place]. tel:[phone] Referring Provider: Marisol Aiken OD, [address] [facility], [place], [address]. tel:[phone] [facility], [address], [place], [place], [address], [phone] SEC Chuck PAINTER Professional No Information 1 Lexa Guillen. [address], [address] [place], [address], [place]. tel:[phone] Referring Provider: Marisol Aiken OD, [address] [facility], [place], [address]. tel:[phone] [facility], [address], [place], [place], [address], [place] tel:[phone] SEC Chuck PAINTER Professional No Information 1 Lexa Guillen. [address], [address] [place], [address], [place]. tel:[phone] [facility], [address], [place], [place], [address], [place] tel:[phone] SEC Chuck PAINTER Professional Post-Op (chief complaint) Post op visit 1 Lexa Guillen. [address], [address] [place], [address], [place]. tel:[phone] Referring Provider: Marisol Aiken OD, [address] [facility], [place], [address]. tel:[phone] [facility], [address], [place], [place], [address], [place] [phone] SEC Amanda Marin No Information 1 Demian Rosen. [address], [address], [place], [place], [address], [place]. tel:[phone] [facility], [address], [place], [place], [address], [place] tel:[phone] SEC Chuck PAINTER Professional 1 day s/p PCIOL (chief complaint) Post op visit 1 Lexa Guillen. [address], [address] [place], [address], [place]. tel:[phone] Referring Provider: Marisol Aiken OD, [address] [facility], [place], [address]. tel:[phone] [facility], [address], [place], [place], [address], [place] tel:[phone] [facility] No Information 1 Lexa Guillen. [address], [address] [place], [address], [place]. tel:[phone] Referring Provider: Marisol Aiken OD, [address] [facility], [place], [address]. tel:[phone] [facility], [address], [place], [place], [address], tel:[phone] SEC Chuck PAINTER Professional No Information 1 Lexa Guillen. [address], [address] [place], [address], [place]. tel:[phone] Referring Provider: Marisol Aiken OD, [address] [facility], [place], [address]. tel:[phone] [facility], [address], [place], [place], [address], [place] tel:[phone] SEC [place] No Information 1 Lexa Guillen. [address], [address] [place], [address], [place]. tel:[phone] Office/outpa tient Visit, [facility], [address], [place], [place], [address], [place] tel:[phone] SEC [facility] Professional Cataract evaluation (chief complaint) Combined forms of age-related cataract, bilateralNexd tve age-related mclr degn, bilateral, early dry stageVitreous degeneration, right eye 1 Lexa Guillen. [address], [place], [place], [address], [place]. tel:[phone] Referring Provider: Marisol Aiken OD, [address] [facility], [place], [address]. tel:[phone] [facility], [address], [place], [place], [address], [place] tel:[phone] SEC Amanda Chaparro No Information 1 Lexa Guillen. [address], [address], [place], [place], [address], [place]. tel:[phone] Family History Family Member Type Diagnosis Age [...] OS. Patient is using the combo drop Yojn-cahaktjngbtd-Bxtuxczrq qid OS. Patient denies any pain or [...]
--- OUTSIDE RECORDS SUMMARY | 2024-12-05 18:41 | XMS_ITS | Clinical Summary ---
Author Organization [facility] Address [address] [place] [address] Phone Care Team Providers Care Cardiovascular Rn Name Role Phone Dae Izaguirre Primary Care Provider [phone] Allergies No known active allergies Medications atorvastatin [...] migh t be different from the original. Billing Adjudicator - Dr. Honorio Hinojosa ([facility]) Labs: [facility] F. [phone] P. [phone] Problem Noted Date Diagnosed Date New onset a-fib 09/12/2022 Generalized weakness 09/12/2022 Acute metabolic encephalopathy 09/11/2022 Elevated d-dimer 09/11/2022 Hyperkalemia 09/11/2022 Atrial flutter with rapid ventricular response 0 09/11/2022 Anxiety 01/02/2019 Dementia without behavioral disturbance 01/03/20 Cholecystitis 10/29/2018 Choledocholithiasis 10/29/2018 Pancreatic cystic lesion 10/29/2018 CAD (coronary atherosclerotic disease) 6 Atherosclerosis of [place] co ronary artery of [place] heart with unstable angina pectoris 08/28/2015 CONNORS [...] on file Legal Sex Male 11:59 AM THERAPEUTIC 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 SERVICES WORKER Gender Identity Not on file Sexual Orientation Not on file Last Filed Vital Signs Vital Sign Reading Time Taken Comments Blood Pressure 128/74 10/03/2022 11:04 AM THERAPEUTIC ACTIVITIES SERVICES WORKER Pulse 68 10/03/2022 11:04 AM THERAPEUTIC ACTIVITIES SERVICES WORKER Temperature 36.4 C (97.5 F) 09/15/2022 6:50 AM THERAPEUTIC ACTIVITIES SERVICES WORKER Respiratory Rate 19 09/15/2022 6:50 AM THERAPEUTIC ACTIVITIES SERVICES WORKER Oxygen Saturation 96% 10/03/2022 11:04 AM THERAPEUTIC ACTIVITIES SERVICES WORKER Inhaled Oxygen Concentration - - Weight 82.6 kg (182 lb) 10/03/2022 11:04 AM THERAPEUTIC ACTIVITIES SERVICES WORKER Height 172.7 cm (5' 8 ) 10/03/2022 11:04 AM THERAPEUTIC ACTIVITIES SERVICES WORKER Body Mass Index 27.67 10/03/2022 11:04 AM THERAPEUTIC ACTIVITIES SERVICES WORKER Plan of Treatment Health Maintenance Due Date Last Done Comments DTAP/TDAP/TD VACCINES (1 - Tdap) 1967 ZOSTER VACCINE (1 of 2) 1998 PNEUMOCOCCAL VACCINE 50+ YEA RS (2 of 2 - PPSV23) 10/30/2019 10/29/2018 RSV VACCINE (60+ or ) (1 - 1-dose 75+ series) 2023 INFLUENZA VACCINE (#1) 2024 8, 05/02/2017, 08/27/2015 Medical Devices Implanted Type Area Senior Abap Developer Device Identifier Shelf Expiration Date Model / Serial / Lot Sealant Hemaflex [id number] - [id number] Implanted:Qty : 1 on 08/30/2015 by Monico Fisher MD at [facility] Biological N/A: Heart [employer] 12/08/2017 [id number] / / [id number] Stent Pncrtc Frmn Flx 5fr 5cm 6552 - [id number] Implanted:Qty : 1 on 10/29/2018 by Vinny Hua MD at [facility] Stent N/A: Pancreas [facility] [id number] 05/13/2023 6552 / / [id number] Description:in pancreatic du ct Graft Vasc Hmshld Gold [id number] - [id number] Implanted:Qty : 1 on 01/01/2019 by Regis Davey MD at [facility] Tissue N/A: Aorta [employer] AB 18 mm x 30 cm 05/12/2020 [id number] / [id number] Description: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 Pcp40 - [id number] Implanted:Qty : 2 on 08/30/2015 by Monico Fisher MD at [facility] N/A: Heart [employer] 03/12/2020 [id number] / / [id number] [place] [address] [facility] [id number] Advance Directives For more information, please contact: [phone] Documents on File Type Date Recorded Patient Digital Imaging Specialist Expl anation Advance Directive POA 01/01/2019 4:54 [...] 8:03 AM 01/01/2019 11:42 AM Care Teams Cardiovascular Rn Relationship Specialty Start Date End Date Dae Izaguirre DO [address] [facility] [address] [place] [address] PCP - General Internal Medicine 12/17/18
[2024-12-05 18:56] LABS: Hematocrit 45.6 % (37.0-46.0); Hemoglobin 14.3 g/dL (12.4-15.3); Mean Corpuscular HGB Conc 31.4 g/dL (32-36); Mean Corpuscular Hemoglobin 32.5 pg (27.0-31.0); Mean Corpuscular Volume 103.6 fL (78.0-102.0); Mean Platelet Volume 9.9 fl (8.7-11.0); Platelet Count Result 160 K/mm3 (150-420); White Blood Count 6.7 K/mm3 (4.8-10.8)
[2024-12-05 20:32] LABS: Alanine Aminotransferase 13 U/L (16-63); Albumin Level 2.8 g/dL (3.4-5.0); Alkaline Phosphatase 83 U/L (46-116); Anion Gap 5 mmol/L (4-12); Aspartate Amino Transferase 16 U/L (15-37); Bilirubin,Total 0.5 mg/dL (0.00-1.00); Blood Urea Nitrogen 26 mg/dL (7-18); Calcium 8.6 mg/dL (8.5-10.1); Carbon Dioxide 34 mmol/L (21-32); Chloride 106 mmol/L (98-108); Cholesterol 121 mg/dL (0-200); Estimated Glomerular Filt Rate > 60; Ferritin 116 ng/mL (26-388); Glucose 130 mg/dL (70-99); HDL Direct 56 mg/dL (40-60); Iron 54 ug/dL (65-175); LDL Cholesterol Calculated 52 mg/dL (<130); NT Pro B Type Natriuretic Pept 563 pg/mL (0-450); Osmolality Calculated 306 mOsm/kg (285-295); Potassium 4.4 mmol/L (3.5-5.1); Sodium 145 mmol/L (136-145); Thyroid Stimulating Hormone 2.36 uIU/mL (0.36-3.74); Total Protein 6.1 g/dL (6.4-8.2); Triglycerides 65 mg/dL (0-150); Vitamin B12 593 pg/mL (193-986)
[2024-12-05 21:13] LABS: Add Urine Microscopic? NO; Appearance Urine Clear (Clear); Bilirubin Urine Negative (Negative); Blood Urine Negative (Negative); Color Urine Yellow (Yellow); Glucose Urine UA Negative (Negative); Ketones Urine Negative (Negative); Leukocyte Esterase Ur Negative (Negative); Nitrate Urine Negative (Negative); Protein Urine Negative (Negative); Specific Grav Ur 1.025 (1.010-1.020); Urobilinogen Urine 0.2 mg/dL (0.2-1.0)
[2024-12-09 02:33] LABS: Total Triiodothyronine (T3) 88 ng/dL (76-181); Vitamin D 25 Hydroxy 52 ng/mL (30-100)
[2024-12-09 09:49] LABS: T4 Thyroxine 6.1 mcg/dL (4.9-10.5)
== END 2024-12-05 18:39 | disposition home or self-care (01) ==
LOC: CHSLAB 18:39
PROVIDERS: PCP Internal Medicine; Visit Provider Internal Medicine
DX: I50.9 Heart failure, unspecified (principal); J44.9 Chronic obstructive pulmonary disease, unspecified; N39.0 Urinary tract infection, site not specified; Z79.899 Other long term (current) drug therapy
CPT/HCPCS: 36415; 80053; 80061; 81003; 82306; 82607; 82728; 83540; 83880; 84436; 84443; 84480; 85027; 87086